=== PATIENT | female | born 1965 | race Caucasian/White ===

== ENCOUNTER 2018-06-18 07:26 | Day surgery (SDC) | payer OTHER ==
--- NOTE | 2018-06-13 16:22 | RAD REPORT ---
EXAM DESCRIPTION: RAD - Chest Pa And Lat (2 Views) - 06/13/2018 4:11 pm COMPARISON: None. TECHNIQUE: PA and lateral views of the chest were obtained. FINDINGS: The lungs are clear. Heart size is normal and central vasculature is within normal limit s. No pleural effusion or pneumothorax seen. No acute bony finding noted. No aortic abnormality. IMPRESSION: No acute cardiopulmonary process.
[2018-06-13 17:29] LABS: Protime INR 1.02
[2018-06-18] MEDS ORDERED: NA CHLORIDE 0.9% 500 ML ONE (07:57)
--- OUTSIDE RECORDS SUMMARY | 2018-06-18 09:03 | XMS REPORT | Clinical Summary ---
:1965 Author Organization [facility] Address [address] [place] [address] Care Team Providers Name Role Phone Paul Robledo MD Primary Care Provider Unavailable Allergies Active Allergy Reactions Severity Noted Date Comments Quetiapine 10/05/2016 Goes into liver failure Current Medications Prescription Sig. Disp. Refills Start Date End Date Status carisoprodol (SOMA) 350 TK 1 T PO BID FOR 0 08/31/2016 Active MG tablet MUSCLE SPASMS. HYDROcodone-acetaminophe TK 1 T PO QID FOR 0 08/31/2016 Active n (NORCO) 10-325 mg per CHRONIC PAIN. tablet rosuvastatin (CRESTOR) TK 1 T PO QHS FOR 3 08/17/2016 Active 10 MG tablet HYPERLIPIDEMIA traMADol (ULTRAM) 50 mg TK 1 T PO QD FOR 0 08/31/2016 Active tablet BREAKTHROUGH PAIN. zolpidem (AMBIEN) 10 mg TK 1 T PO QHS FOR 0 09/05/2016 Active tablet INSOMNIA. FLUoxetine (PROzac) 40 Take 80 mg by mouth Active MG capsule every morning. Takes 2 of the 40mg tabs tiZANidine (ZANAFLEX) 4 Take 4 mg by mouth Active MG tablet every 8 (eight) hours as needed for muscle spasms. ALPRAZolam (XANAX) 2 MG Take 2 mg by mouth Active tablet every morning. SUMAtriptan (IMITREX) 50 Take 100 mg by mouth Active MG tablet once as needed for migraine. May repeat in 2 hours if unresolved. Do not exceed 200 mg in 24 hours. butalbital-acetaminophen as needed. 2 09/29/2016 Active -caff (FIORICET, ESGIC) 50-325-40 mg per tablet LATUDA 80 mg tablet 80 mg nightly. 2 09/21/2016 Active topiramate (TOPAMAX) 100 Take 100 mg by mouth Active MG tablet 2 (two) times a day. coenzyme Q10 200 mg Take 200 mg by mouth Active capsule daily. hydrOXYzine (VISTARIL) Take 100 mg by mouth Active 100 MG capsule 3 (three) times a day as needed for itching. promethazine-DM TK 1 TEA PO Q 12 H 0 01/15/2017 Active (PROMETHAZINE-DM) PRN. MAY CAUSE 6.25-15 mg/5 mL syrup DROWSINESS. DO NOT TAKE WHILE DRIVING. atorvastatin (LIPITOR) 0 01/05/2017 Active 10 MG tablet fluticasone (FLONASE) 50 0 01/05/2017 Active mcg/actuation nasal spray LATUDA 60 mg tablet 0 01/08/2017 Active LATUDA 40 mg tablet 0 01/08/2017 Active methocarbamol (ROBAXIN) 3 01/04/2017 Active 500 MG tablet methylPREDNISolone 0 01/05/2017 Active (MEDROL DOSEPAK) 4 mg tablet SUMAtriptan (IMITREX) 2 01/04/2017 Active 100 MG tablet VENTOLIN HFA 90 0 03/27/2017 Active mcg/actuation inhaler REXULTI 1 mg tablet 1 05/09/2017 Active tablet BREO ELLIPTA 100-25 1 03/29/2017 Active mcg/dose blister with device powder for inhalation SPIRIVA RESPIMAT 2.5 1 05/09/2017 Active mcg/actuation mist Active Problems Problem Noted Date 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 05/14/2017 Tobacco abuse disorder 05/14/2017 Sore throat 12/21/2016 Cervical spondylosis with myelopathy and radiculopathy 11/01/2016 Cervical spondylosis with myelopathy 10/05/2016 Family History Medical History Relation Name Comments Diabetes Brother alireza Heart disease Brother alireza Leukemia Brother alireza Diabetes Brother zaira Diabetes Father Heart disease Father Kidney disease Father Diabetes Mother Heart disease Mother Thyroid disease Mother Diabetes Sister Thyroid disease Sister Relation Name Status Comments Brother alireza Brother zaira Alive Father Mother of heart attack Sister Alive Social History Tobacco Use Types Packs/Day Years Used Date Current Every Day Smoker Cigarettes 1 3 Smokeless Tobacco: Never Used Alcohol Use Drinks/Week oz/Week Comments No Sex Assigned at Date Recorded Not on file Last Filed Vital Signs Not on file Plan of Treatment Health Maintenance Due Date Last Done Comments CERVICAL CANCER SCREENING 1984 BREAST CANCER SCREENING 2013 COLON CANCER SCREENING 2013 SHINGRIX VACCINE (#1) 2013 INFLUENZA VACCINE 03/27/2018 Implants Implanted Type Area Weld Technician Device Expiration Model / Identifier Date Serial / Lot Matrix Hmstc Floseal 10ml W/ Humn F2 - [id number] Human N/A: N/A BRICENO [id number] / Implanted: Qty: 1 on 11/01/2016 Tissue BIOSCIENCE / Implants [id number] Kit Putty Bone 1.5ml Mastergraft - [id number] Human N/A: N/A MEDTRONIC [id number] / Implanted: Qty: 1 on 11/01/2016 Tissue SPINAL AND / Implants BIOLOGICS [id number] Cage [id number] Anatomic Ptc [id number] - [id number] IMPLANT Anterior: MEDTRONIC 03/27/2024 [id number] / Implanted: Qty: 1 on 11/01/2016 DEVICES Spine SOFAMOR DANEK / Cervical 82CE Cage [id number] Anatomic Ptc [id number] - [id number] IMPLANT Anterior: MEDTRONIC 04/11/2024 [id number] / Implanted: Qty: 1 on 11/01/2016 DEVICES Spine SOFAMOR DANEK / Cervical 07CG Screw Spinal Slf-Drl Karuna 4x15mm - [id number] Spinal N/A: N/A MEDTRONIC [id number] / Implanted: Qty: 3 on 11/01/2016 Implants SPINAL AND / BIOLOGICS Screw Spinal Slf-Drl Karuna 4x15mm - [id number] Spinal N/A: N/A MEDTRONIC [id number] / Implanted: Qty: 3 on 11/01/2016 Implants SPINAL AND / BIOLOGICS Plate Cerv 37.5mm [place] Elite - [id number] Spinal N/A: N/A MEDTRONIC [id number] / Implanted: Qty: 1 on 11/01/2016 Implants SPINAL AND / BIOLOGICS Results Not on fileafter 06/17/2017 Insurance Payer Benefit Plan / Group Subscriber ID Type Phone Address MEDICARE MEDICARE PART A AND B xxxxxxxxxx Medicare [place], [place] Home: [address] [phone] [address]
[2018-06-18] MEDS ORDERED: HEPA 1000U/500MLS 1,000 UNIT/500 ML BAG IV ONE (09:06)
[2018-06-18] MEDS ORDERED: LIDOCAINE 1% MPF 30 ML VIAL ONE (09:06)
[2018-06-18] MEDS ORDERED: ATROPINE SULF 1 MG/10 ML SYR IV ONE (09:18)
[2018-06-18] MEDS ORDERED: MIDAZOLAM HCL 2 MG/2 ML INJ ONE ×2 (09:18→09:42)
[2018-06-18] MEDS ORDERED: NA CHLORIDE 0.9% 0 ML ONE (09:18)
[2018-06-18 11:42] VITALS: O2SAT 93
[2018-06-18 12:08] VITALS: BP 93/43; TEMP 98.7
--- NOTE | 2018-06-18 20:50 | OP ---
Surgeon: Anjel Baez MD Director Of Extension Work: Citlali Perez. Admitted to my service as an outpatient for a heart catheterization. Indication For The Procedure: Unstable angina. Procedure: Selective coronary arteriogram, left ventriculogram, and selective coronary arteriogram. History Of Present Illness: Ms. Colin is 53, has a history of dyslipidemia, family history of heart d isease, tobacco abuse, hypertension, classic symptoms for unstable angina including substernal chest pain and angina type symptoms including syncope, diaphoresis, dyspnea on exertion. Procedure In Detail: Brought to the label sewer today as an outpatient, had a 4 mg of Versed for IV sed ation. A 6-Vincentian sheath introduced in the right common femoral artery. Angio-Seal was used to clos e the case. Marlee catheter 6-Vincentian left, right and a pigtail were used to do the coronary arterio gram and left ventriculogram respectively. She was found to have normal coronaries, normal LV gram, normal end-diastolic pressure, normal ejection fraction. There were no complications. Blood Loss: 5 cc. Final Diagnosis: Normal coronaries. Total Conscious Sedation: 30 minutes. She will go home today in 2 hours, and she will see me in the office in 2 weeks. LORENZO/INES Voice ID: [id number] Report ID: [id number]
== END 2018-06-18 12:10 | disposition home health service (06) ==
LOC: CCL 07:26
DX: I20.0 Unstable angina (principal); R06.02 Shortness of breath; E78.5 Hyperlipidemia, unspecified; F17.210 Nicotine dependence, cigarettes, uncomplicated; E78.6 Lipoprotein deficiency; Z88.8 Allergy status to other drugs, medicaments and biological substances; Z82.49 Family history of ischemic heart disease and other diseases of the circulatory system
CPT/HCPCS: 36415; 71046; 85610; 85730; 93458; C1760; C1893; J2250 ×2; 36222; 75630; J0583

== ENCOUNTER 2019-02-21 12:33 | Emergency (ER) | payer OTHER ==
--- OUTSIDE RECORDS SUMMARY | 2019-02-21 12:36 | XMS REPORT | Clinical Summary ---
:1965 Author Organization [facility] Address [address] [place] [address] Care Team Providers Name Role Phone Paul Robledo MD Primary Care Provider Unavailable Allergies Active Allergy Reactions Severity Noted Date Comments Quetiapine 10/05/2016 Goes into liver failure Medications Medication Sig Dispensed Refills Start Date End Date Status carisoprodol (SOMA) 350 TK 1 T PO BID FOR 0 08/31/2016 Active MG tablet MUSCLE SPASMS. HYDROcodone-acetaminoph TK 1 T PO QID FOR 0 08/31/2016 Active en (NORCO) 10-325 mg CHRONIC PAIN. per tablet rosuvastatin (CRESTOR) TK 1 T PO QHS FOR 3 08/17/2016 Active 10 MG tablet HYPERLIPIDEMIA traMADol (ULTRAM) 50 mg TK 1 T PO QD FOR 0 08/31/2016 Active tablet BREAKTHROUGH PAIN. zolpidem (AMBIEN) 10 mg TK 1 T PO QHS FOR 0 09/05/2016 Active tablet INSOMNIA. FLUoxetine (PROzac) 40 Take 80 mg by mouth 0 Active MG capsule every morning. Takes 2 of the 40mg tabs tiZANidine (ZANAFLEX) 4 Take 4 mg by mouth 0 Active MG tablet every 8 (eight) hours as needed for muscle spasms. ALPRAZolam (XANAX) 2 MG Take 2 mg by mouth 0 Active tablet every morning. SUMAtriptan (IMITREX) Take 100 mg by 0 Active 50 MG tablet mouth once as needed for migraine. May repeat in 2 hours if unresolved. Do not exceed 200 mg in 24 hours. butalbital-acetaminophe as needed. 2 09/29/2016 Active n-caff (FIORICET, ESGIC) 50-325-40 mg per tablet LATUDA 80 mg tablet 80 mg nightly. 2 09/21/2016 Active topiramate (TOPAMAX) Take 100 mg by 0 Active 100 MG tablet mouth 2 (two) times a day. coenzyme Q10 200 mg Take 200 mg by 0 Active capsule mouth daily. hydrOXYzine (VISTARIL) Take 100 mg by 0 Active 100 MG capsule mouth 3 (three) times a day as needed for itching. promethazine-DM TK 1 TEA PO Q 12 H 0 01/15/2017 Active (PROMETHAZINE-DM) PRN. MAY CAUSE 6.25-15 mg/5 mL syrup DROWSINESS. DO NOT TAKE WHILE DRIVING. atorvastatin (LIPITOR) 0 01/05/2017 Active 10 MG tablet fluticasone (FLONASE) 0 01/05/2017 Active 50 mcg/actuation nasal spray LATUDA 60 mg tablet [...] Assigned at Date Recorded Not on file Job Start Date Occupation Industry Not on file Not on file Not on file Travel History Travel Start Travel End No recent travel history available. Last Filed Vital Signs Not on file Plan of Treatment Health Maintenance Due Date Last Done Comments BREAST CANCER SCREENING 2013 COLONOSCOPY SCREENING 2013 SHINGLES VACCINES (#1) 2013 INFLUENZA VACCINE 03/27/2019 Implants Implanted Type Area Roustabout Crew Device Shelf Model / Identifier Expiration Serial / Date Lot Matrix Hmstc Floseal 10ml W/ Humn F2 - [id number] Human N/A: N/A BRICENO [id number] / Implanted: Qty: 1 on 11/01/2016 Tissue BIOSCIENCE / Implants [id number] Kit Putty Bone 1.5ml Mastergraft - [id number] Human N/A: N/A MEDTRONIC [id number] / Implanted: Qty: 1 on 11/01/2016 Tissue SPINAL AND / Implants BIOLOGICS [id number] Cage [id number] Anatomic Ptc [id number] - [id number] IMPLANT Anterior: MEDTRONIC 03/27/2024 [id number] / Implanted: Qty: 1 on 11/01/2016 DEVICES Spine SOFAMOR DANEK / Cervical 82CE Cage [id number] Anatomic Ptc [id number] - [id number] IMPLANT Anterior: MEDTRONIC 04/11/2024 [id number] / Implanted: Qty: 1 on 11/01/2016 DEVICES Spine SOFAMOR DANEK / Cervical 07CG Screw Spinal Slf-Drl Karuna 4x15mm - [id number] Spinal N/A: N/A MEDTRONIC [id number] / Implanted: Qty: 3 on 11/01/2016 Implants SPINAL AND / BIOLOGICS Screw Spinal Slf-Drl Karuna 4x15mm - [id number] Spinal N/A: N/A MEDTRONIC [id number] / Implanted: Qty: 3 on 11/01/2016 Implants SPINAL AND / BIOLOGICS Plate Cerv 37.5mm [place] Elite - [id number] Spinal N/A: N/A MEDTRONIC [id number] / Implanted: Qty: 1 on 11/01/2016 Implants SPINAL AND / BIOLOGICS Results Not on fileafter 02/20/2018 Insurance Payer Benefit Plan / Subscriber ID Effective Dates Phone Address Type Group MEDICARE MEDICARE PART A xxxxxxxxxx 2013-Present [place], [place] Medicare [place] B (Home) [place] [address] Advance Directives Patient has advance care planning documents, and code status on file. For more information, please contact:Phani Graibay[address] [place] [address] Code Status Date Activated Date Inactivated Comments Full Code 11/01/2016 8:48 PM 11/02/2016 1:21 PM Code Status decision reached by: Patient
--- OUTSIDE RECORDS SUMMARY | 2019-02-21 12:36 | XMS REPORT ---
:1965 [facility] Address [address] [place] [address] Dr. Hebert [address] [place] [address] Care Team Providers Name Role Phone Unavailable Unavailable Unavailable Problems This patient has no known problems. Allergies, Adverse Reactions, Alerts This patient has no known allergies or adverse reactions. Medications This patient has no known medications.
--- NOTE | 2019-02-21 13:17 | RAD REPORT ---
EXAM DESCRIPTION: Wolf Single View02/21/2019 1:12 pm CLINICAL HISTORY: Chest pain COMPARISON: May 2018 FINDINGS: An area of scarring or subsegmental atelectasis is present within the left lung base Right lung appears clear Heart is normal size
--- NOTE | 2019-02-21 13:22 | EKG ---
Test Date: 2019-02-21 Test Time: 12:50:43 Security Incident Handler: JANELLE MEASUREMENT RESULTS: Intervals: Rate: 79 CT: 138 QRSD: 68 QT: 386 QTc: 442 [place]: P: 38 CT: 138 QRS: 72 T: 208 INTERPRETIVE STATEMENTS: Normal sinus rhythm ST & T wave abnormality, consider anterolateral ischemia Abnormal ECG Compared to ECG 08/30/2015 16:12:58 Possible ischemia now present Sinus bradycardia no longer present ST (T wave) deviation still present Electronically Signed On 02-21-19 13:22:14 CDT by Anjel Baez
[2019-02-21 13:41] LABS: Absolute Lymphocytes (CBC) 2.2 K/uL (0.7-4.9); Basophils % 0.5 % (0-1.3); Eosinophils % 0.3 % (0-4.4); Hematocrit 47.3 % (36.0-45.0); Lymphocytes % 21.5 % (15.3-44.8); MPV 9.6 fL (7.6-11.3); Monocytes % 6.7 % (3.3-12.3); RBC Red Blood Cell Count 4.98 M/uL (3.86-4.86)
[2019-02-21 13:47] LABS: Protime INR 1.07
[2019-02-21 14:08] LABS: ALT/SGPT 49 U/L (12-78); AST/SGOT 16 U/L (15-37); Albumin 4.1 g/dL (3.4-5.0); Alkaline Phosphatase 152 U/L (45-117); BUN Blood Urea Nitrogen 8 mg/dL (7-18); Bicarbonate 21 mmol/L (21-32); Bilirubin Direct 0.2 mg/dL (0-0.2); Bilirubin Total 0.5 mg/dL (0.2-1.0); Glucose Level 103 mg/dL (74-106); Magnesium 2.4 mg/dL (1.8-2.4); NT PRO-BNP 19 pg/mL (<125); Potassium 3.7 mmol/L (3.5-5.1); Protein, Total 8.5 g/dL (6.4-8.2); Sodium Level 138 mmol/L (136-145); Troponin (Emerg Dept Use Only) < 0.02 ng/mL (0.0-0.045)
[2019-02-21] MEDS ORDERED: FENTANYL CITR 100 MCG/2 ML ONE (15:27)
--- NOTE | 2019-02-21 17:14 | ER ---
Nurse's Notes [facility] Name: Janine Colin Age: 53 yrs Sex: Female : 1965 Arrival Date: 02/21/2019 Time: 12:35 Bed 4 Private MD: Diagnosis: Chest pain, unspecified Presentation: 02/21 12:49 Presenting complaint: Patient states: midsternal chest pain since 0300 today, described iw as constant, crushing, hurts to breathe. Transition of care: patient was not received from another setting of care. Onset of symptoms was February 21, 2019. Risk Assessment: Do you want to hurt yourself or someone else? Patient reports no desire to harm self or others. Initial Sepsis Screen: Does the patient meet any 2 criteria? No. Patient's initial sepsis screen is negative. Does the patient have a suspected source of infection? No. Patient's initial sepsis screen is negative. Care prior to arrival: None. 12:49 Method Of Arrival: Wheelchair iw 12:49 Acuity: KRYSTYNA 2 iw Triage Assessment: 12:50 General: Appears in no apparent distress. uncomfortable, Behavior is calm, cooperative, hj appropriate for age. Pain: Complains of pain in chest. Cardiovascular: Reports chest pain. 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 - Ebola Screening: : Patient negative for fever greater than or equal to 101.5 degrees Fahrenheit, and additional compatible Ebola Virus Disease symptoms Patient denies exposure to infectious person Patient denies travel to an Ebola-affected area in the 21 days before illness onset No symptoms or risks identified at this time. - Social history:: Smoking status: Patient uses tobacco products, Patient/guardian denies using alcohol. Screenin:50 Abuse screen: Denies threats or abuse. Denies injuries from another. Nutritional hj screening: No deficits noted. Tuberculosis screening: No symptoms or risk factors identified. Fall Risk None identified. Assessment: 12:50 Pain: Pain radiates to left arm Pain began suddenly. hj 12:50 General: Appears in no apparent distress. uncomfortable, Behavior is cooperative, hj appropriate for age, anxious. Neuro: Level of Consciousness is awake, alert, obeys commands, Oriented to person, place, time, situation, Appropriate for age. Cardiovascular: Capillary refill < 3 seconds Patient's skin is warm and dry. Cardiovascular: Reports chest pain. Respiratory: Airway is patent Respiratory effort is even, unlabored, Respiratory pattern is regular, symmetrical. GI: No signs and/or symptoms were reported involving the gastrointestinal system. : No signs and/or symptoms were reported regarding the genitourinary system. EENT: No signs and/or symptoms were reported regarding the EENT system. Derm: No signs and/or symptoms reported regarding the dermatologic system. Musculoskeletal: No signs and/or symptoms reported regarding the musculoskeletal system. 13:30 Reassessment: Patient and/or family updated on plan of care and expected duration. Pain hj level reassessed. Patient is alert, oriented x 3, equal unlabored respirations, skin warm/dry/pink. awaiting results and POC:. 14:30 Reassessment: Patient and/or family updated on plan of care and expected duration. Pain hj level reassessed. Patient is alert, oriented x 3, equal unlabored respirations, skin warm/dry/pink. 15:30 Reassessment: Patient and/or family updated on plan of care and expected duration. Pain hj level reassessed. Patient is alert, oriented x 3, equal unlabored respirations, skin warm/dry/pink. Patient states feeling better. Patient states symptoms have improved. 16:30 Reassessment: Patient and/or family updated on plan of care and expected duration. Pain hj level reassessed. Patient is alert, oriented x 3, equal unlabored respirations, skin warm/dry/pink. Patient states symptoms have improved. 17:11 Reassessment: Patient and/or family updated on plan of care and expected duration. Pain hj level reassessed. Patient is alert, oriented x 3, equal unlabored respirations, skin warm/dry/pink. for D/C; Patient states feeling better. Vital Signs: 12:51 BP 130 / 103; Pulse 79; Resp 16; Pulse Ox 98% on R/A; Pain 10/10; iw 13:30 BP 128 / 93; Pulse 75; Resp 18; Pulse Ox 100% on R/A; hj 14:40 BP 122 / 92; Pulse 72; Resp 18; Pulse Ox 95% on R/A; hj 15:32 BP 116 / 86; Pulse 67; Resp 18; Temp 98.4(O); Pulse Ox 97% on R/A; hj 16:25 BP 117 / 87; Pulse 65; Resp 18; Pulse Ox 100% on R/A; hj 17:11 BP 118 / 85; Pulse 69; Resp 18; Pulse Ox 99% on R/A; hj ED Course: 12:35 Patient arrived in ED. as 12:43 Josiah Green, JOY is Primary Nurse. hj 12:48 John England MD is Attending Physician. gs 12:50 Triage completed. iw 12:50 Patient maintains SpO2 saturation greater than 95% on room air. hj 12:50 Patient has correct armband on for positive identification. Placed in gown. Bed in low hj position. Call light in reach. Side rails up X 1. Adult w/ patient. site monitor on. Pulse ox on. NIBP on. 13:08 X-ray completed. Portable x-ray completed in exam room. Patient tolerated procedure ml well. 13:12 XRAY Chest (1 view) In Process Unspecified. EDMS 13:29 Initial lab(s) drawn, by crime laboratory analyst, sent to lab. Inserted saline lock: 18 gauge in right hj upper arm, using aseptic technique. Blood collected. 13:30 Arm band placed on right wrist. hj 17:13 Woody Matamoros MD is Referral Physician. gs 17:28 No provider procedures requiring assistance completed. IV discontinued, intact, hj bleeding controlled, No redness/swelling at site. Pressure dressing applied. Administered Medications: 15:08 Drug: fentaNYL (PF) 50 mcg Route: IVP; Site: right upper arm; hj 15:15 Follow up: Response: No adverse reaction; Pain is decreased hj 17:14 Drug: [place] 10 mg-325 mg 1 tabs Route: PO; hj 17:28 Follow up: Response: No adverse reaction; Pain is decreased Outcome: 17:13 Discharge ordered by . gs 17:29 Discharged to home ambulatory, with family. hj 17:29 Condition: stable 17:29 Discharge instructions given to patient, family, Instructed on discharge instructions, follow up and referral plans. medication usage, Demonstrated understanding of instructions, follow-up care, medications, Prescriptions given X 1. 17:30 Patient left the ED. hj Signatures: Dispatcher [employer] Arpita Moreno Irene, RN RN iw Lopez, Melissa ml Joaquin, Henry, RN RN hj Starr, Gregory, MD MD gs Corrections: (The following items were deleted from the chart) 15:34 15:32 BP 116 / 86; Pulse 67bpm; Resp 18bpm; Pulse Ox 97% RA; holley babb
--- NOTE | 2019-02-21 17:14 | EDPHYS ---
Physician Documentation [facility] Name: Janine Colin Age: 53 yrs Sex: Female : 1965 Arrival Date: 02/21/2019 Time: 12:35 Bed 4 Private MD: ED Physician John England HPI: 02/21 17:18 This 53 yrs old Female presents to ER via Wheelchair with complaints of Chest gs Pain. 17:18 The patient or guardian reports chest pain that is located primarily in the anterior gs chest wall. Onset: this morning, at 03:00. The pain radiates to back. Associated signs and symptoms: Pertinent negatives: diaphoresis, shortness of breath, vomiting. The chest pain is described as sharp. Modifying factors: the symptoms are aggravated by deep breath, movement, twisting torso. Severity of pain: At its worst the pain was moderate in the emergency department the pain is unchanged. The patient has experienced similar episodes in the past, a few times. 17:26 Duration: The patient or guardian reports a single episode, that is still ongoing. gs RECEIPT AND REPORT CLERK: 17:29 LMP N/A - Irregular menses hj Historical: - PSHx: 12:50 Exploratory lap; ; rotator cuff; D \T\ C; Hysterectomy; iw - Immunization history:: Adult Immunizations up to date. - Ebola Screening: : Patient negative for fever greater than or equal to 101.5 degrees Fahrenheit, and additional compatible Ebola Virus Disease symptoms Patient denies exposure to infectious person Patient denies travel to an Ebola-affected area in the 21 days before illness onset No symptoms or risks identified at this time. - Social history:: Smoking status: Patient uses tobacco products, Patient/guardian denies using alcohol. ROS: 17:18 All other systems are negative. gs Exam: 17:18 Head/Face: Normocephalic, atraumatic. Eyes: Pupils equal round and reactive to light, gs extra-ocular motions intact. Lids and lashes normal. Conjunctiva and sclera are non-icteric and not injected. Cornea within normal limits. Periorbital areas with no swelling, redness, or edema. ENT: Nares patent. No nasal discharge, no septal abnormalities noted. Tympanic membranes are normal and external auditory canals are clear. Oropharynx with no redness, swelling, or masses, exudates, or evidence of obstruction, uvula midline. Mucous membranes moist. Neck: Trachea midline, no thyromegaly or masses palpated, and no cervical lymphadenopathy. Supple, full range of motion without nuchal rigidity, or vertebral point tenderness. No Meningismus. Chest/axilla: Normal chest wall appearance and motion. Nontender with no deformity. No lesions are appreciated. Cardiovascular: Regular rate and rhythm with a normal S1 and S2. No gallops, murmurs, or rubs. Normal PMI, no JVD. No pulse deficits. Respiratory: Lungs have equal breath sounds bilaterally, clear to auscultation and percussion. No rales, rhonchi or wheezes noted. No increased work of breathing, no retractions or nasal flaring. Abdomen/GI: Soft, non-tender, with normal bowel sounds. No distension or tympany. No guarding or rebound. No evidence of tenderness throughout. Back: No spinal tenderness. No costovertebral tenderness. Full range of motion. Skin: Warm, dry with normal turgor. Normal color with no rashes, no lesions, and no evidence of cellulitis. MS/ Extremity: Pulses equal, no cyanosis. Neurovascular intact. Full, normal range of motion. Neuro: Awake and alert, GCS 15, oriented to person, place, time, and situation. Cranial nerves II-XII grossly intact. Motor strength 5/5 in all extremities. Sensory grossly intact. Cerebellar exam normal. Normal gait. 17:18 Constitutional: The patient appears alert, awake. 17:18 ECG was reviewed by the Attending Physician. Vital Signs: 12:51 BP 130 / 103; Pulse 79; Resp 16; Pulse Ox 98% on R/A; Pain 10/10; iw 13:30 BP 128 / 93; Pulse 75; Resp 18; Pulse Ox 100% on R/A; hj 14:40 BP 122 / 92; Pulse 72; Resp 18; Pulse Ox 95% on R/A; hj 15:32 BP 116 / 86; Pulse 67; Resp 18; Temp 98.4(O); Pulse Ox 97% on R/A; hj 16:25 BP 117 / 87; Pulse 65; Resp 18; Pulse Ox 100% on R/A; hj 17:11 BP 118 / 85; Pulse 69; Resp 18; Pulse Ox 99% on R/A; hj MDM: 12:54 Patient medically screened. 17:18 Differential diagnosis: coronary artery disease chest wall pain, pulmonary embolus. HEART Score: History: Slightly Suspicious (0), ECG: Non specific repolarization disturbance / LBTB / PM (1), Age: > 45 and < 65 years (1), Risk Factors: 1 or 2 risk factors (1), [Active Smoker] Troponin: < or = 1 x Normal Limit (0). Data reviewed: vital signs, nurses notes, lab test result(s), EKG, radiologic studies. Counseling: I had a detailed discussion with the patient and/or guardian regarding: the historical points, exam findings, and any diagnostic results supporting the discharge/admit diagnosis, the need for outpatient follow up. Response to treatment: the patient's symptoms have markedly improved after treatment, the patient's symptoms have resolved after treatment, the patient's pain is gone, the patient's condition has returned to base line. 17:21 ED course: pt only has pain with movement. 02/21 12:48 Order name: Basic Metabolic Panel 02/21 12:48 Order name: CBC with Diff 02/21 12:48 Order name: LFT's; Complete Time: 15:07 02/21 12:48 Order name: Magnesium; Complete Time: 15:07 02/21 12:48 Order name: NT PRO-BNP; Complete Time: 15:07 02/21 12:48 Order name: PT-INR; Complete Time: 15:07 02/21 12:48 Order name: Troponin (emerg Dept Use Only); Complete Time: 15:07 02/21 12:48 Order name: XRAY Chest (1 view); Complete Time: 13:19 02/21 12:50 Order name: Basic Metabolic Panel; Complete Time: 15:07 [facility] 02/21 12:50 Order name: CBC with Automated Diff; Complete Time: 15:07 [facility] 02/21 13:00 Order name: D-Dimer; Complete Time: 15:07 02/21 15:10 Order name: Troponin (emerg Dept Use Only); Complete Time: 17:10 02/21 12:48 Order name: EKG; Complete Time: 12:51 02/21 12:48 Order name: Cardiac monitoring; Complete Time: 13:03 02/21 12:48 Order name: EKG - Nurse/Tech; Complete Time: 13:03 02/21 12:48 Order name: IV Saline Lock; Complete Time: : 02/21 12:48 Order name: Labs collected and sent; Complete Time: 13: 02/21 12:48 Order name: O2 Per Protocol; Complete Time: 13: 02/21 12:48 Order name: O2 Sat Monitoring; Complete Time: 13: EC:18 Rate is 79 beats/min. Rhythm is regular. WV interval is normal. QRS interval is normal. QT interval is normal. Clinical impression: NSR w/ Non-specific ST/T Changes. Interpreted by me. Administered Medications: 15:08 Drug: fentaNYL (PF) 50 mcg Route: IVP; Site: right upper arm; 15:15 Follow up: Response: No adverse reaction; Pain is decreased 17:14 Drug: [place] 10 mg-325 mg 1 tabs Route: PO; 17:28 Follow up: Response: No adverse reaction; Pain is decreased Disposition: 02/21/19 17:13 Discharged to Home. Impression: Chest pain, unspecified. - Condition is Stable. - Discharge Instructions: Nonspecific Chest Pain. - Prescriptions for Tylenol- Codeine #4 300-60 mg Oral Tablet - take 1 tablet by ORAL route every 6 hours As needed; 10 tablet. - Medication Reconciliation Form, Thank You Letter, Antibiotic Education, Prescription Opioid Use form. - Follow up: Woody Matamoros MD; When: 2 - 3 days; Reason: Re-evaluation by your physician. Signatures: [facility] Shweta Villalpando RN RN Josiah Green RN RN John England MD MD Corrections: (The following items were deleted from the chart) 17:26 17:18 Duration: The patient or guardian reports multiple episodes, that are gs intermittent, that wax and wane, with no pattern, gs 17:30 17:13 02/21/2019 17:13 Discharged to Home. Impression: Chest pain, unspecified. hj Condition is Stable. Forms are Medication Reconciliation Form, Thank You Letter, Antibiotic Education, Prescription Opioid Use. Follow up: Woody Matamoros; When: 2 - 3 days; Reason: Re-evaluation by your physician. gs
[2019-02-21] MEDS ORDERED: HYDROCODONE/APAP 10/325 TAB ONE (17:33)
[2019-02-21 20:12] VITALS: TEMP 98.4
[2019-02-21 20:14] VITALS: BP 118/85; O2SAT 99
== END 2019-02-21 17:30 | disposition home or self-care (01) ==
LOC: ER 12:33
DX: R07.9 Chest pain, unspecified (principal); Z72.0 Tobacco use
CPT/HCPCS: 93005; 85025; 80048; 36415; 83735; 85610; 85379; 80076; 84484 ×2; 83880; 71045; 96374; 99285; J3010

== ENCOUNTER 2019-05-06 16:20 | Emergency (ER) | payer OTHER ==
--- OUTSIDE RECORDS SUMMARY | 2019-05-06 16:23 | XMS REPORT ---
:1965 Author Organization [facility] Address [address] [place] [address] Dr. Hebert [address] [place] [id number] Care Team Providers Name Role Phone Unavailable Unavailable Unavailable Problems This patient has no known problems. Allergies, Adverse Reactions, Alerts This patient has no known allergies or adverse reactions. Medications This patient has no known medications.
--- OUTSIDE RECORDS SUMMARY | 2019-05-06 16:23 | XMS REPORT | Clinical Summary ---
:1965 Author Organization [facility] Address [address] [place] [address] Care Team Providers Name Role Phone Paul Robledo MD Primary Care Provider Allergies Active Allergy Reactions Severity Noted Date [...] CANCER SCREENING 1984 BREAST CANCER SCREENING 2013 COLONOSCOPY SCREENING 2013 SHINGLES VACCINES (#1) 2013 INFLUENZA VACCINE 03/27/2019 Implants Implanted Type Area Automatic Lathe Setter Device Shelf Model / Identifier Expiration Serial / Date Lot Matrix Hmstc Floseal 10ml W/ Humn F2 - [id number] Human N/A: N/A BRICENO [id number] / Implanted: Qty: 1 on 11/01/2016 at [facility] Tissue BIOSCIENCE / Implants [id number] Kit Putty Bone 1.5ml Mastergraft - [id number] Human N/A: N/A MEDTRONIC [id number] / Implanted: Qty: 1 on 11/01/2016 at [facility] Tissue SPINAL AND / Implants BIOLOGICS [id number] Cage [id number] Anatomic Ptc [id number] - [id number] IMPLANT Anterior: MEDTRONIC 03/27/2024 [id number] / Implanted: Qty: 1 on 11/01/2016 at [facility] DEVICES Spine SOFAMOR DANEK / Cervical 82CE Cage [id number] Anatomic Ptc [id number] - [id number] IPM IMPLANT Anterior: MEDTRONIC 04/11/2024 [id number] / Implanted: Qty: 1 on 11/01/2016 at [facility] DEVICES Spine SOFAMOR DANEK / Cervical 07CG Screw Spinal Slf-Drl Karuna 4x15mm - [id number] Spinal N/A: N/A [employer]TR[employer]IC [id number] / Implanted: Qty: 3 on 11/01/2016 at [facility] Implants SPINAL AND / BIOLOGICS Screw Spinal Slf-Drl Karuna 4x15mm - [id number] Spinal N/A: N/A MEDTRONIC [id number] / Implanted: Qty: 3 on 11/01/2016 at [facility] Implants SPINAL AND / BIOLOGICS Plate Cerv 37.5mm [place] Elite - [id number] Spinal N/A: N/A [employer]IC [id number] / Implanted: Qty: 1 on 11/01/2016 at [facility] Implants SPINAL AND / BIOLOGICS Results Not on fileafter 05/05/2018 Insurance Payer Benefit Plan / Subscriber ID Effective Dates Phone Address Type Group MEDICARE MEDICARE PART A xxxxxxxxxx 2013-Present [place], [place] Medicare [place] B Advance Directives For more information, please contact: [phone] Type Date Recorded Patient Lacing Cutter Explanation Advance Directives, 12/21/2016 11:14 AM Living Will and Medical Power of Eligibility Consultant Advance Directives, 11/06/2016 11:00 AM Living Will and Medical Power of Eligibility Consultant Advance Directives, 11/06/2016 11:00 AM Living Will and Medical Power of Eligibility Consultant Code Status Date Activated Date Inactivated Comments Full Code 11/01/2016 8:48 PM 11/02/2016 1:21 PM Code Status decision reached by: Patient
--- NOTE | 2019-05-06 17:35 | RAD REPORT ---
EXAM DESCRIPTION: USExtrem Venous W Compress Bil05/06/2019 5:19 pm CLINICAL HISTORY: Bilateral leg swelling COMPARISON: May 02, 2019 FINDINGS: The common femoral, superficial femoral, popliteal and posterior tibial veins bilaterally are compressible and demonstrate augmentation. Doppler demonstrates good flow. IMPRESSION: No evidence of deep venous thrombosis involving either lower extremity.
--- NOTE | 2019-05-06 17:46 | RAD REPORT ---
EXAM DESCRIPTION: Wolf Single View05/06/2019 5:05 pm CLINICAL HISTORY: Chest pain COMPARISON: January 2019 FINDINGS: An area of scarring or subsegmental atelectasis is present within the left lung base Right lung appears clear Heart is normal size
[2019-05-06] MEDS ORDERED: MORPHINE 4 MG/ML SYR ONE (17:54)
[2019-05-06] MEDS ORDERED: ONDANSETRON 4 MG/2 ML VIAL ONE (17:54)
[2019-05-06] MEDS ORDERED: ONDANSETRON 4 MG (ODT) TAB ONE (18:22)
--- NOTE | 2019-05-06 18:29 | EKG ---
Test Date: 2019-05-06 Test Time: 16:55:59 Laminating Machine Offbearer: GERMAIN MEASUREMENT RESULTS: Intervals: Rate: 76 IN: 140 QRSD: 72 QT: 398 QTc: 447 Mobile: P: 58 IN: 140 QRS: 74 T: -34 INTERPRETIVE STATEMENTS: Normal sinus rhythm ST & T wave abnormality, consider anterior ischemia Abnormal ECG Compared to ECG 02/21/2019 12:50:43 No significant changes Electronically Signed On 05-06-19 18:29:10 CDT by Anjel Baez
[2019-05-06 18:34] LABS: Absolute Lymphocytes (CBC) 2.7 K/uL (0.7-4.9); Basophils % 0.6 % (0-1.3); Hematocrit 41.2 % (36.0-45.0); Lymphocytes % 28.9 % (15.3-44.8); MPV 9.2 fL (7.6-11.3); RBC Red Blood Cell Count 4.27 M/uL (3.86-4.86)
[2019-05-06 18:48] LABS: Albumin 3.9 g/dL (3.4-5.0); Bilirubin Direct 0.1 mg/dL (0-0.2); Bilirubin Total 0.2 mg/dL (0.2-1.0); Potassium 3.8 mmol/L (3.5-5.1); Protein, Total 7.1 g/dL (6.4-8.2)
--- NOTE | 2019-05-06 19:36 | ER ---
Nurse's Notes [facility] Name: Janine Colin Age: 54 yrs Sex: Female : 1965 Arrival Date: 05/06/2019 Time: 16:22 Bed 25 Private MD: out of town, doctor Diagnosis: Edema, unspecified Presentation: 05/06 16:28 Presenting complaint: Patient states: I have been having a problem with swelling in my la1 right foot for the last 2 weeks, saw my PCP, he did an US but it was normal, the swelling just keeps getting worse. Transition of care: patient was not received from another setting of care. Onset of symptoms was May 06, 2019. Risk Assessment: Do you want to hurt yourself or someone else? Patient reports no desire to harm self or others. Initial Sepsis Screen: Does the patient meet any 2 criteria? No. Patient's initial sepsis screen is negative. Does the patient have a suspected source of infection? No. Patient's initial sepsis screen is negative. Care prior to arrival: None. 16:28 Method Of Arrival: Ambulatory la1 16:28 Acuity: KRYSTYNA 3 la1 Historical: - Allergies: 16:29 Seroquel; la1 - PMHx: 16:29 Depression; Anxiety; Fibromyalgia; High Cholesterol; la1 - Immunization history:: Adult Immunizations up to date. - Social history:: Smoking status: Patient uses tobacco products, smokes one-half pack cigarettes per day. - Ebola Screening: : No symptoms or risks identified at this time. Screenin:30 Abuse screen: Denies threats or abuse. Denies injuries from another. Nutritional ca1 screening: No deficits noted. Tuberculosis screening: No symptoms or risk factors identified. Fall Risk None identified. Assessment: 17:30 General: Appears in no apparent distress. comfortable, Behavior is calm, cooperative, ca1 appropriate for age. Pain: Complains of pain in right foot Pain currently is 8 out of 10 on a pain scale. Neuro: Level of Consciousness is awake, alert, obeys commands, Oriented to person, place, time, situation. Cardiovascular: Heart tones S1 S2 present Capillary refill < 3 seconds Patient's skin is warm and dry. Respiratory: Airway is patent Respiratory effort is even, unlabored, Respiratory pattern is regular, symmetrical, Breath sounds are clear bilaterally. GI: Abdomen is round non-distended, Bowel sounds present X 4 quads. Abd is soft and non tender X 4 quads. : No deficits noted. No signs and/or symptoms were reported regarding the genitourinary system. EENT: No deficits noted. No signs and/or symptoms were reported regarding the EENT system. Derm: Skin is intact, is healthy with good turgor, Skin is pink, warm \T\ dry. Musculoskeletal: Circulation, motion, and sensation intact. Capillary refill < 3 seconds, Range of motion: intact in all extremities, Swelling present in right foot. 18:38 Reassessment: Patient appears in no apparent distress at this time. Patient and/or ca1 family updated on plan of care and expected duration. Pain level reassessed. Patient is alert, oriented x 3, equal unlabored respirations, skin warm/dry/pink. Unable to start IV on pt. Blood draw by lab personnel. Notified provider. Meds changed from IV to IM and PO. 19:12 Reassessment: Patient appears in no apparent distress at this time. Patient and/or ca1 family updated on plan of care and expected duration. Pain level reassessed. Patient is alert, oriented x 3, equal unlabored respirations, skin warm/dry/pink. Vital Signs: 16:29 BP 107 / 74; Pulse 83; Resp 16; Temp 98.4; Pulse Ox 98% on R/A; Weight 72.57 kg; Height la1 5 ft. 2 in. (157.48 cm); 17:30 BP 95 / 53; Pulse 67; Resp 17 S; Pulse Ox 95% on R/A; ca1 19:12 BP 121 / 78; Pulse 70; Resp 16 S; Pulse Ox 94% on R/A; ca1 16:29 Body Mass Index 29.26 (72.57 kg, 157.48 cm) la1 ED Course: 16:22 Patient arrived in ED. mr 16:23 out of town, doctor is Private Physician. mr 16:29 Triage completed. la1 16:29 Arm band placed on left wrist. la1 16:30 Dylan Juárez NP is PHCP. pm1 16:30 Reji Medina MD is Attending Physician. pm1 16:57 EKG done, by surface mount technology operator. reviewed by Dylan Juárez NP. sm3 17:09 Chest Single View XRAY In Process Unspecified. EDMS 17:24 Extrem Venous W Compression Ashish US In Process Unspecified. EDMS 17:30 Patient has correct armband on for positive identification. Placed in gown. Bed in low ca1 position. Call light in reach. Side rails up X 1. Pulse ox on. NIBP on. Warm blanket given. 17:30 No provider procedures requiring assistance completed. Missed attempt(s): 24 gauge in ca1 left antecubital area. Bleeding controlled, band aid applied, catheter tip intact. 17:38 Keren Patel, JOY is Primary Nurse. ca1 17:40 Missed attempt(s): 24 gauge in right antecubital area. Bleeding controlled, band aid ca1 applied, catheter tip intact. 19:29 Patient did not have IV access during this emergency room visit. ca1 Administered Medications: 18:35 Not Given (Will give IM. Unable to start IV on pt): morphine 4 mg IVP once; RASS on ca1 ADMIN: Combtv4, Very Agttd3, Agttd2, Rstlss1, AlertClm0, Drwsy-1, Lt Sdtn-2, Mod Sdtn-3, Dp Sdtn-4, UnArsble-5 18:35 Not Given (PT does not have IV. Blood drawn by performing arts technicians. Notified provider. Will give ca1 Zofran PO): Zofran 4 mg IVP once; over 2 minutes 18:35 Drug: Zofran 4 mg Route: PO; ca1 19:29 Follow up: Response: No adverse reaction; Nausea is decreased ca1 18:38 Drug: morphine 4 mg {Note: RASS - 0.} Route: IM; Site: right gluteus; ca1 19:29 Follow up: Response: No adverse reaction; Pain is decreased; RASS: Alert and Calm (0) ca1 Outcome: 19:15 Discharge ordered by MD. pm1 19:29 Discharged to home ambulatory, with significant other. ca1 19:29 Condition: stable 19:29 Discharge instructions given to patient, Instructed on discharge instructions, follow up and referral plans. Demonstrated understanding of instructions, follow-up care. 19:30 Patient left the ED. ca1 Signatures: Dispatcher [employer] EDMS Raya Fernando ArisChris, RN RN la1 Dylan Juárez, SCIENTIFIC DATABASE CURATOR SCIENTIFIC DATABASE CURATOR pm1 Judy Ny sm3 Acob, Keren, RN RN ca1
--- NOTE | 2019-05-06 19:37 | EDPHYS ---
Physician Documentation [facility] Name: Janine Colin Age: 54 yrs Sex: Female : 1965 Arrival Date: 05/06/2019 Time: 16:22 Bed 25 Private MD: out of town, doctor ED Physician Reji Medina HPI: 05/06 17:32 This 54 yrs old Female presents to ER via Ambulatory with complaints of Feet pm1 Swelling. 17:32 The patient presents with bilateral lower extremity swelling for the past 2 weeks. pm1 Greater to right than left. Context: The problem was sustained at home, resulted from an unknown cause, the patient can fully bear weight, the patient is able to ambulate, Problem is a result from a previous injury: No. Onset: The symptoms/episode began/occurred 2 week(s) ago. Modifying factors: The symptoms are alleviated by elevating leg, improved upon waking. the symptoms are aggravated by standing or sitting. Worse in the evening. Associated signs and symptoms: Pertinent negatives calf tenderness, chest pain, shortness of breath. Treatment prior to arrival includes: no previous treatment. The patient has been recently seen by a physician: the patient's primary care provider, Dr. Panchal. Given Lasix prescription last week and u/s of lower extremities 4 days ago. Does not feel that Lasix are improving symptoms and u/s 4 days ago was negative. however feels the swelling to right lower extermity is worse. Historical: - Allergies: 16:29 Seroquel; la1 - PMHx: 16:29 Depression; Anxiety; Fibromyalgia; High Cholesterol; la1 - Immunization history:: Adult Immunizations up to date. - Social history:: Smoking status: Patient uses tobacco products, smokes one-half pack cigarettes per day. - Ebola Screening: : No symptoms or risks identified at this time. ROS: 17:32 Constitutional: Negative for fever, chills, and weight loss, Eyes: Negative for injury, pm1 pain, redness, and discharge, ENT: Negative for injury, pain, and discharge, Neck: Negative for injury, pain, and swelling, Respiratory: Negative for shortness of breath, cough, wheezing, and pleuritic chest pain, Abdomen/GI: Negative for abdominal pain, nausea, vomiting, diarrhea, and constipation. 17:32 Back: Negative for injury and pain, : Negative for injury, bleeding, discharge, and swelling. 17:32 Skin: Negative for injury, rash, and discoloration, Neuro: Negative for headache, weakness, numbness, tingling, and seizure. 17:32 Cardiovascular: Positive for edema, Negative for chest pain, orthopnea, palpitations. 17:32 MS/extremity: Positive for pain, swelling, of the right foot, Negative for injury or acute deformity, decreased range of motion, deformity. Exam: 17:32 Constitutional: This is a well developed, well nourished patient who is awake, alert, pm1 and in no acute distress. Head/Face: Normocephalic, atraumatic. Eyes: Pupils equal round and reactive to light, extra-ocular motions intact. Lids and lashes normal. Conjunctiva and sclera are non-icteric and not injected. Cornea within normal limits. Periorbital areas with no swelling, redness, or edema. ENT: Nares patent. No nasal discharge, no septal abnormalities noted. Tympanic membranes are normal and external auditory canals are clear. Oropharynx with no redness, swelling, or masses, exudates, or evidence of obstruction, uvula midline. Mucous membranes moist. Neck: Trachea midline, no thyromegaly or masses palpated, and no cervical lymphadenopathy. Supple, full range of motion without nuchal rigidity, or vertebral point tenderness. No Meningismus. Chest/axilla: Normal chest wall appearance and motion. Nontender with no deformity. No lesions are appreciated. Cardiovascular: Regular rate and rhythm with a normal S1 and S2. No gallops, murmurs, or rubs. Normal PMI, no JVD. No pulse deficits. Respiratory: Lungs have equal breath sounds bilaterally, clear to auscultation and percussion. No rales, rhonchi or wheezes noted. No increased work of breathing, no retractions or nasal flaring. Abdomen/GI: Soft, non-tender, with normal bowel sounds. No distension or tympany. No guarding or rebound. No evidence of tenderness throughout. Back: No spinal tenderness. No costovertebral tenderness. Full range of motion. Skin: Warm, dry with normal turgor. Normal color with no rashes, no lesions, and no evidence of cellulitis. 17:32 Musculoskeletal/extremity: Extremities: grossly normal except: noted in the right foot: pain, swelling, tenderness, noted in the right rudolph: edema 1+, ROM: intact in all extremities, Circulation is intact in all extremities. Pulses: noted to be 2+ in the right dorsalis pedis artery and left dorsalis pedis artery. Vital Signs: 16:29 BP 107 / 74; Pulse 83; Resp 16; Temp 98.4; Pulse Ox 98% on R/A; Weight 72.57 kg; Height la1 5 ft. 2 in. (157.48 cm); 17:30 BP 95 / 53; Pulse 67; Resp 17 S; Pulse Ox 95% on R/A; ca1 19:12 BP 121 / 78; Pulse 70; Resp 16 S; Pulse Ox 94% on R/A; ca1 16:29 Body Mass Index 29.26 (72.57 kg, 157.48 cm) la1 MDM: 16:30 Patient medically screened. pm1 17:37 Data reviewed: vital signs. Data interpreted: Pulse oximetry: on room air is 98 %. pm1 Interpretation: normal. 19:14 Counseling: I had a detailed discussion with the patient and/or guardian regarding: the pm1 historical points, exam findings, and any diagnostic results supporting the discharge/admit diagnosis, lab results, radiology results, the need for outpatient follow up, to return to the emergency department if symptoms worsen or persist or if there are any questions or concerns that arise at home. 05/06 16:43 Order name: Basic Metabolic Panel; Complete Time: 19:14 pm1 05/06 16:43 Order name: CBC with Diff; Complete Time: 19:14 pm1 05/06 16:43 Order name: Extrem Venous W Compression Ashish US; Complete Time: 18:27 pm1 05/06 16:43 Order name: Chest Single View XRAY; Complete Time: 18:27 pm1 05/06 16:43 Order name: LFT's; Complete Time: 19:14 pm1 05/06 16:43 Order name: EKG; Complete Time: 16:44 pm1 05/06 16:43 Order name: EKG - Nurse/Tech; Complete Time: 17:59 pm1 05/06 16:43 Order name: Labs collected and sent; Complete Time: 18:41 pm1 Administered Medications: 18:35 Not Given (Will give IM. Unable to start IV on pt): morphine 4 mg IVP once; RASS on ca1 ADMIN: Combtv4, Very Agttd3, Agttd2, Rstlss1, AlertClm0, Drwsy-1, Lt Sdtn-2, Mod Sdtn-3, Dp Sdtn-4, UnArsble-5 18:35 Not Given (PT does not have IV. Blood drawn by epitaxial reactor technician. Notified provider. Will give ca1 Zofran PO): Zofran 4 mg IVP once; over 2 minutes 18:35 Drug: Zofran 4 mg Route: PO; ca1 19:29 Follow up: Response: No adverse reaction; Nausea is decreased ca1 18:38 Drug: morphine 4 mg {Note: RASS - 0.} Route: IM; Site: right gluteus; ca1 19:29 Follow up: Response: No adverse reaction; Pain is decreased; RASS: Alert and Calm (0) ca1 Disposition: 05/06/19 19:15 Discharged to Home. Impression: Edema, unspecified. - Condition is Stable. - Discharge Instructions: Peripheral Edema. - Medication Reconciliation Form, Thank You Letter, Antibiotic Education, Prescription Opioid Use form. - Follow up: Emergency Department; When: As needed; Reason: Worsening of condition. Follow up: Private Physician; When: 2 - 3 days; Reason: Recheck today's complaints, Continuance of care, Re-evaluation by your physician. - Problem is new. - Symptoms have improved. Addendum: 05/09/2019 07:02 Co-signature as Attending Physician, Reji Medina MD. r n Signatures: Dispatcher [employer] EDMS Reji Medina MD MD rn Attema, Lee, RN RN la1 Dylan Juárez, GEGE ASSISTED LIVING EXECUTIVE DIRECTOR pm1 Keren Patel RN RN ca1 Corrections: (The following items were deleted from the chart) 05/06 19:30 19:15 05/06/2019 19:15 Discharged to Home. Impression: Edema, unspecified. Condition is ca1 Stable. Forms are Medication Reconciliation Form, Thank You Letter, Antibiotic Education, Prescription Opioid Use. Follow up: Emergency Department; When: As needed; Reason: Worsening of condition. Follow up: Private Physician; When: 2 - 3 days; Reason: Recheck today's complaints, Continuance of care, Re-evaluation by your physician. Problem is new. Symptoms have improved. pm1
[2019-05-06 20:52] VITALS: BP 121/78; O2SAT 94
[2019-05-06 20:56] VITALS: TEMP 97.1
== END 2019-05-06 19:30 | disposition home or self-care (01) ==
LOC: ER 16:20
DX: R60.9 Edema, unspecified (principal); Z88.8 Allergy status to other drugs, medicaments and biological substances; F17.210 Nicotine dependence, cigarettes, uncomplicated
CPT/HCPCS: 93005; 85025; 80048; 36415; 80076; 71045; 93970; J2405; 96372; 99284

== ENCOUNTER 2020-09-27 13:15 | Emergency (ER) | payer OTHER ==
--- OUTSIDE RECORDS SUMMARY | 2020-09-27 13:20 | XMS REPORT | Summary of Care ---
:1965 Author Organization [facility] - Health Address [address] [place] [address] Care Team Providers Name Role Phone Geoffrey Sandoval Primary Care Provider Encounter Details Date Type Department Care Team Description 07/13/2020 Orders Only [facility] Doctor Unassigned, No [address] [facility] [place] [address] [address] [place] [address] Allergies Active Allergy Reactions Severity Noted Date Comments Quetiapine Unknown - See comments 10/05/2016 Goes into liver failure Quetiapine Fumarate Other - See comments 01/26/2018 Liver failure documented as of this encounter (statuses as of 07/13/2020) Medications Medication Sig Dispensed Refills Start Date End Date Status methocarbamol 500 mg Take 750 mg by 0 Active tablet mouth 2 (two) times daily. butalbital-acetaminophen Take 1 tablet by 0 Active -caff 50-325-40 mg mouth 2 (two) tablet times daily. ALPRAZolam 2 mg tablet Take 2 mg by 0 Active mouth 3 (three) times daily as needed for Anxiety. lurasidone (LATUDA) 60 Take 60 mg by 0 Active mg Tab mouth daily. lurasidone (LATUDA) 40 Take 40 mg by 0 Active mg tablet mouth daily. topiramate 100 mg tablet Take 100 mg by 0 Active mouth 2 (two) times daily. FLUoxetine 40 mg capsule Take 40 mg by 0 Active mouth 2 (two) times daily. atorvastatin 40 mg Take 40 mg by 0 Active tablet mouth at bedtime. sumatriptan 100 mg Take 100 mg by 0 Active tablet mouth as needed for Migraine. naproxen (NAPROSYN) 500 Take 1 tablet by 30 tablet 0 8 Active mg tablet mouth 2 (two) times daily with meals. documented as of this encounter (statuses as of 07/13/2020) Active Problems Problem Noted Date Venous insufficiency of both lower extremities 019 Fibromyalgia 07/01/2019 documented as of this encounter (statuses as of 07/13/2020) Social History Tobacco Use Types Packs/Day Years Used Date Current Every Day Smoker Cigarettes Sta rted: 1991 Sex Assigned at Date Recorded Not on file COVID-19 Exposure Response Date Recorded In the last month, have you been in contact with No / Unsure 07/13/2020 9:11 AM MANAGER HOME someone who was confirmed or suspected to have Coronavirus / COVID-19? documented as of this encounter Last Filed Vital Signs Not on filedocumented in this encounter Plan of Treatment Date Type Specialty Care Team Description 07/13/2020 Office Visit Orthopedic Surgery Mejia Stack, PAC Arrived [address] [id number] [phone] Health Maintenance Due Date Last Done Comments HEPATITIS C (HCV) SCREEN 1965 Depression Screening 1975 DTaP,Tdap,and Td Vaccines (1 - 1982 Tdap) PAP SMEAR 1984 Breast Cancer Screening 2003 (MAMMOGRAM) COLON CANCER SCREENING ANNUAL 2013 FIT/FOBT COLON CANCER SCREENING FIT DNA 2013 EVERY 3 YEARS COLON CANCER SCREENING 2013 SIGMOIDOSCOPY EVERY 5 YEARS COLONOSCOPY 2013 Colorectal Cancer Screening 2013 Zoster Recombinant Vaccine 2013 (SHINGRIX) (1 of 2) LUNG CANCER SCREEN: 2018 Recommended for age 55-80 with 30 + pack year history INFLUENZA VACCINE (#1) 2020 07/01/2019, 04/19/2018, 10/15/2015 PNEUMOCOCCAL 0-64 YEARS Aged Out No longe r eligible based COMBINED SERIES on patient's age to complete this to pic documented as of this encounter Procedures Procedure Name Priority Date/Time Associated Diagnosis Comme nts ASSIGNMENT OF BENEFITS Routine 07/13/2020 9:12 AM MANAGER HOME documented in this encounter Results Not on filedocumented in this encounter Insurance Payer Benefit Plan / Subscriber ID Effective Dates Phone Addre ss Type Group CIGNA HEALTH CIGNA [employer]ALTH [id number] 2018-[facility] Medicare Adv spring nt HMO documented as of this encounter
--- OUTSIDE RECORDS SUMMARY | 2020-09-27 13:20 | XMS REPORT | Clinical Summary ---
:1965 Author Organization [facility] Address [address] [facility] [address] [address] Care Team Providers Name Role Phone MD Venkat Primary Care Provider Allergies Active Allergy Reactions Severity Noted Date Comments Quetiapine 10/05/2016 Goes into liver failure Medications Medication Sig Dispensed Refills Start Date End Date Status carisoprodol (SOMA) 350 TK 1 T PO BID FOR 0 017 Active MG tablet MUSCLE SPASMS. HYDROcodone-acetaminoph TK 1 T PO QID FOR 0 017 Active en (NORCO) 10-325 mg CHRONIC PAIN. per tablet rosuvastatin (CRESTOR) TK 1 T PO QHS FOR 3 6 Active 10 MG tablet HYPERLIPIDEMIA traMADol (ULTRAM) 50 mg TK 1 T PO QD FOR 0 08/31/19 17 Active tablet BREAKTHROUGH PAIN. zolpidem (AMBIEN) 10 mg TK 1 T PO QHS FOR 0 017 Active tablet INSOMNIA. FLUoxetine (PROzac) 40 Take [...] MG tablet VENTOLIN HFA 90 0 03/27/2017 Act toñito mcg/actuation inhaler REXULTI 1 mg tablet 1 05/09/2017 Active tablet BREO ELLIPTA 100-25 1 03/29/2017 Active mcg/dose blister with device powder for inhalation SPIRIVA RESPIMAT 2.5 1 05/09/2017 Active mcg/actuation mist Active Problems Problem Noted Date 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 05/14/2017 Tobacco abuse disorder 05/14/2017 Sore throat 12/21/2016 Cervical spondylosis with myelopathy and radiculopathy 11/01/2016 Cervical spondylosis with myelopathy 10/05/2016 Surgical History Surgery Date Site/Laterality Comments SECTION ROTATOR CUFF REPAIR 08/27/1979 - Right 08/26/1980 TONSILLECTOMY CENTRAL VENOUS CATHETER INSERTION CENTRAL VENOUS CATHETER REMOVAL EXPLORATORY LAPAROTOMY due to ov lazara cyst , at that time patien t was and had miscarriage a we ek aftger surgery PARTIAL HYSTERECTOMY DISCECTOMY, CERVICAL, WITH 11/01/2016 Neck/Anterior Proce dure: ANTERIOR FUSION, ANTERIOR APPROACH CERVIC AL DISCECTOMY AND FUSION C5-C7, RI GHT ILIAC CREST BONE MARROW ASPIRATION; Alex geon: Aleks Hood MD; Location: [facility]; Service: Neurosu rgery; Laterality: Ante rior; Medical devices from this surgery are in the Implants section . Medical History Medical History Date Comments Depression Hyperlipidemia Migraines daily Pain neck, arm, shoulder pain left side Fibromyalgia Arthritis osteoathritis back Does not exercise some sob/no chest pa in on stairs Anesthesia NO IV access- diffic ult stick- needs central line//nfhap Diabetes mellitus (HCC) Does not check m orning glucose; DOES NOT HAVE, STRONG FAMILY HISTORY Liver failure (HCC) 2013 Resolved when Seroqu el stopped. No problem since. Family History Medical History Relation Name Comments Diabetes Brother alireza Heart disease Brother alireza Leukemia Brother alireza Diabetes Brother zaira Diabetes Father Heart disease Father Kidney disease Father Diabetes Mother Heart disease Mother Thyroid disease Mother Diabetes Sister Thyroid disease Sister Relation Name Status Comments Brother alireza Brother zaira Alive Father Mother of heart at tack Sister Alive Social History Tobacco Use Types Packs/Day Years Used Date Current Every Day Smoker Cigarettes 1 3 Smokeless Tobacco: Never Used Alcohol Use Drinks/Week oz/Week Comments No Sex Assigned at Date Recorded Not on file Last Filed Vital Signs Not on file Plan of Treatment Health Maintenance Due Date Last Done Comments COVID-19 VACCINE (1 of 2) 1979 CERVICAL CANCER SCREENING 1984 BREAST CANCER SCREENING 2013 COLONOSCOPY SCREENING 2013 SHINGLES VACCINES (#1) 2013 INFLUENZA VACCINE 03/27/2020 Implants Implanted Type Area Marine Consultant Device Shelf Model / Identifier Expiration Serial / Date Lot Matrix Hmstc Floseal 10ml W/ Humn F2 - [id number] Human N/A: N/A BRICENO 02/23/2018 [id number] / Implanted: Qty: 1 on 11/01/2016 at [facility] Tissue BI OSCIENCE / Implants [id number] Kit Putty Bone 1.5ml Mastergraft - [id number] Human N/A: N/A ME DTRONIC 03/26/2020 [id number] / Implanted: Qty: 1 on 11/01/2016 at [facility] Tissue SP INAL AND / Implants BIOLOGICS [id number] Cage [id number] Anatomic Ptc [id number] - [id number] IMPLANT Anteri or: MEDTRONIC 03/27/2024 [id number] / Implanted: Qty: 1 on 11/01/2016 at [facility] DEVICES Spine SO FAMOR DANEK / Cervical 82CE Cage [id number] Anatomic Ptc [id number] - [id number] [id number] IMPLANT Anteri or: MEDTRONIC 04/11/2024 [id number] / Implanted: Qty: 1 on 11/01/2016 at [facility] DEVICES Spine SO FAMOR DANEK / Cervical 07CG Screw Spinal Slf-Drl Karuna 4x15mm - [id number] Spinal N/A: N/A MEDTRO BULL [id number] / Implanted: Qty: 3 on 11/01/2016 at [facility] Implants SP INAL AND / BIOLOGICS Screw Spinal Slf-Drl Karuna 4x15mm - [id number] Spinal N/A: N/A MEDTRO BULL [id number] / Implanted: Qty: 3 on 11/01/2016 at [facility] Implants SP INAL AND / BIOLOGICS Plate Cerv 37.5mm [place] Elite - [id number] Spinal N/A: N/A MEDTR ONIC [id number] / Implanted: Qty: 1 on 11/01/2016 at [facility] Implants SP INAL AND / BIOLOGICS Results Not on fileafter 09/27/2019 Insurance Payer Benefit Plan / Subscriber ID Effective Dates Phone Addre ss Type Group MEDICARE MEDICARE PART A [id number] 2013-Present [facility] Medicare AND B Advance Directives For more information, please contact: [phone] Type Date Recorded Patient Clinical Immunologist Explanati on Advance Directives, 12/21/2016 11:14 AM Living Will and Medical Power of Supervisor [employer] Advance Directives, 11/06/2016 11:00 AM Living Will and Medical Power of Supervisor [employer] Advance Directives, 11/06/2016 11:00 AM Living Will and Medical Power of Supervisor [employer] Code Status Date Activated Date Inactivated Comments Full Code 11/01/2016 8:48 PM 11/02/2016 1:21 PM Code Status decision reached by: Patient
--- OUTSIDE RECORDS SUMMARY | 2020-09-27 13:20 | XMS REPORT | Continuity of Care Document ---
:1965 Author Organization [facility] Care Team Providers Name Role Phone [facility] Unavailable Un available Problems Problem Status Onset Classification Date Comments Sourc e Date Reported ABDOMINAL Active 03/15/20 Condition 04/09/2015 Medica l DISTENSION 15 Group ABDOMINAL PAIN, Active 03/15/20 Condition 04/09/2015 Medical GENERALIZED 15 Group PELVIC PAIN Active 03/15/20 Condition 04/09/2015 Medi alphonso 15 Group OVARIAN CYST, LEFT Active 03/15/20 Condition 04/09/2015 Medical 15 Group Osteoarthritis Active Problem 05/09/2019 [facility] Ankle edema Active Problem 05/09/2019 [facility] Fibromyalgia Active Problem 05/09/2019 [facility] Medications Medication Details Route Status Patient Ordering Order Source Instructions Provider Date HYDROCODONE-BRAYDEN 1 tab by Active TAMINOPHEN mouth 4 x Medical 10-325 MG/15ML daily for Group SOLN chronic pain SOMA 350 MG 1 tab by Active TABS mouth 3 x Medical daily for Group muscle spasms. CRESTOR 10 MG 1 tab by Active TABS mouth once Medical daily Group AMBIEN 10 MG 1 tab by Active TABS mouth at Medical bedtime as Group needed for insomnia CYMBALTA 60 MG 1 tab by Active CPEP mouth once Medical daily Group ABILIFY 10 MG 1 tab by Active TABS mouth each Medical pm Group NEURONTIN 300 1 cap by Active MG CAPS mouth 3 x Medical daily Group ALPRAZOLAM 2 MG 1 tab by Active TBDP mouth 2 x Medical daily Group TOPAMAX 50 MG 1 tab by Active TABS mouth 2 x Medical daily Group HERBAL 2 x daily Active EQUILIBRIUM for hot Medical flashes Group PROGESTERONE 2 x daily Active MICRONIZED CREA topical for Medi alphonso hot flashes Group BLACK COHOSH 1 cap by Active 540 MG CAPS mouth once Medical daily for Group hot flashes VITAMIN D3 2000 1 cap by Active mouth once Medical daily Group NICOTINE PT24 Active Medical Group ABILIFY 10 MG 1 tab by Active MH TABS mouth each Medical pm Group Latuda 2 tablets Orally Active 40 MG Orally [facility] with food Once a day of [facility] Butalbital-Acet 1 tablet as Orally Active 50-325 MG [facility] aminophen needed Orally once a of [facility] day Atorvastatin 1 tablet Orally Active 40 MG Orally [facility] Calcium Once a day of [facility] Topamax 1 tablet Orally Active 100 MG Orally [facility] twice a day of [facility] Xanax 1 tablet Orally Active 2 MG Orally [facility] Twice a day of [facility] Tylenol # 3 not defined NA Active [facility] Imitrex 1 tablet as Orally Active 100 MG Orally [facility] needed Once a day of [facility] Tamsulosin HCl 1 capsule Orally Active 0.4 MG Orally [facility] 30 minutes Once a day [facility] after the same meal each day Prozac 1 capsule Orally Active 40 MG Orally [facility] twice a day [facility] Allergies, Adverse Reactions, Alerts Substance Category Reaction Severity Reaction Status Date Comments S ource type Reported SEROQUEL Food SEROQUEL MH allergy 5 Medical Group Seroquel Adverse Info Not Adverse Active Rheu m Reaction Available Reaction [facility] Immunizations No Data Provided for This Section Results No Data Provided for This Section Pathology Reports No Data Provided for This Section Diagnostic Reports Report Value Date Source Abdomen complete US Exam: Abdominal Ultrasound 03/15/2015 [facility] [employer] Reason for Exam: Generalized abdominal pain Comparison Exam: None Discussion: Multiple axial and sagittal images were obtained of the abdomen. The liver is of normal size and echogenicity. No focal hepatic masses identified. No intrahepatic or extrahepatic biliary duct dilation, with the common bile duct me asuring 0.4 cm. No gallstones or gallbladder sludge. No gallbladder wall thickening or pericholecystic fluid. Sonographic Scott's sign is negative. The visualiz ed portions of the pancreati c head and proximal body are within normal limits. The spleen is of normal echogenicity measuring 8.3 cm in length. The visualized portions of the upper abdominal aorta and IVC are unremarkable. No evidence seen for asci navid. The right and left kidneys m easure 9.9 cm and 10.0 cm respectively. They are of normal echogenicity without focal masses, hydronephrosis, or shadowing renal calculi. Impression: 1. Unremarkable abdominal ultrasound Pelvis w Pelvis Exam: Pelvic ultrasound. 03/15/2015 [facility] Transvaginal [facility] Reason for Exam: Generalized abdominal pain Comparison Exam: None Discussion: Multiple axial and sagittal images of the pelvis were obtained transabdominally and transvaginally. The patient is status post hysterectomy. No abnormal midline masses identified. The right ovary measures 1.9 x 1.6 0.2 cm. It is of normal echogenicity without focal masses. The left ovary measures 2.7 x 2.3 x 1.8 cm. It is of unremarkable echogenicity. A slightly complex cyst is s een within the left ovary me asuring 1.5 x 1.2 x 0.9 cm. Doppler and waveform evaluations of the ovaries are unremarkable. No free fluid seen within th e pelvic cul-de-sac. The bladder is unremarkable in appearance. Impression: 1. No acute abnormalities s een within the pelvis. Note is made of a sightly complex cyst seen within the left ovary measuring up to 1.5 cm. Consultation Notes No Data Provided for This Section Discharge Summaries No Data Provided for This Section History and Physicals No Data Provided for This Section Vital Signs Vital Sign Value Date Comments Source Weight 161.0 05/08/2019 [facility] Height 62 05/08/2019 [facility] Heart Rate 67 05/08/2019 [facility] Diastolic (mm Hg) 79 05/08/2019 [facility] Systolic (mm Hg) 107 05/08/2019 [facility] Weight 156 04/09/2015 [facility] Systolic (mm Hg) 108 04/09/2015 Medical Group Diastolic (mm Hg) 75 04/09/2015 Medical Group Heart Rate 82 04/09/2015 [facility] Height 62 03/15/2015 [facility] Weight 152 03/15/2015 [facility] p Temperature Oral (F) 98.2 F 03/15/2015 [facility]i [facility]phon[facility] Group Heart Rate 80 03/15/2015 Medical Gr[facility] p Systolic (mm Hg) 99 03/15/2015 Medical Group Diastolic (mm Hg) 69 03/15/2015 Medical Group Encounters Location Location Encounter Encounter Reason Attending ADM DE Stat Source Details Type Number For Provider Date Date Visit [facility] [id number] 03/15 [place] Visit 46969 /2014 Medic al Medical MD [facility] [id number] KEESHA03/15 [facility] Out[facility] Diag [id number] Keesha03/15 [facility] [id number] NADIM ISADORA 03/23 [facility] [place] [facility] [id number] 04/08 [facility] 3 [facility] Office [id number] Maddie04/09 [place] Medical Visit 8[address]29 MD Mario /2014 Me dical [facility] [address] Outpatient [id number] 04/09 [facility] 4 [place] [facility] [id number] 04/21 Active [facility] 1 [place] [facility] [id number] 05/19 [facility] [id number] 05/19 [facility] e [facility] 8 [place] Outpatient [id number] ULTRASOUND 05/19 [facility] ve [facility] 0 VISIT /2014 [place] Outpatient [id number] ULTRASOUND 07/09 [facility] 5 VISIT [place] Outpatient [id number] 07/09 [facility] [id number] 07/29 [facility] [id number] MADDIE 03/30 [facility] 1 [place] Procedures Procedure Code Date Perfomer Comments Source colonoscopy 39513 04/09/201501/2015 Medical Group smoking/tobacco 14 03/15/2015 yes Medica l cessation, patient Group education and counseling Assessment and Plan No Data Provided for This Section Plan of Care No Data Provided for This Section Social History Social History Date Source No data available for this 03/16/2015 [facility] section Family History No Data Provided for This Section Advance Directives No Data Provided for This Section Functional Status No Data Provided for This Section
--- OUTSIDE RECORDS SUMMARY | 2020-09-27 13:21 | XMS REPORT | Summary of Care ---
:[address] [facility] Address [address] [place] [address] Care Team Providers Name Role Phone Geoffrey Sandoval Primary Care Provider Encounter Details Date Type Department Care Team Description 07/14/2020 Prep For Surgery [facility] Calvin Tucker Closed b imalleolar Orthopaedic Surgery- MD Gia fracture of left [place] [address] ankle, initial [address], [address] encounter (Primary [address] [place], [place] Dx) [place] [id number] [phone] Allergies Active Allergy Reactions Severity Noted Date Comments Quetiapine Unknown - See comments 10/05/2016 Goes into liver failure Quetiapine Fumarate Other - See comments 01/26/2018 Liver failure documented as of this encounter (statuses as of 07/14/2020) Medications Medication Sig Dispensed Refills Start Date End Date Status methocarbamol 500 mg Take 750 mg by 0 Active tablet mouth 2 (two) times daily. butalbital-acetaminophe Take 1 tablet by 0 Active n-caff 50-325-40 mg mouth 2 (two) tablet times daily. ALPRAZolam 2 mg tablet Take 2 mg by 0 Active mouth 3 (three) times daily as needed for Anxiety. lurasidone (LATUDA) 60 Take 60 mg by 0 Active mg Tab mouth daily. lurasidone (LATUDA) 40 Take 40 mg by 0 Active mg tablet mouth daily. topiramate 100 mg Take 100 mg by 0 Active tablet mouth 2 (two) times daily. FLUoxetine 40 mg Take 40 mg by 0 Active capsule mouth 2 (two) times daily. atorvastatin 40 mg Take 40 mg by 0 Active tablet mouth at bedtime. sumatriptan 100 mg Take 100 mg by 0 Active tablet mouth as needed for Migraine. naproxen (NAPROSYN) 500 Take 1 tablet by 30 tablet 0 8 Active mg tablet mouth 2 (two) times daily with meals. furosemide 20 mg tablet TAKE ONE TABLET 0 05/04/2020 Active BY MOUTH TWICE A DAY omega-3 fatty acids Take 1 capsule by 0 Active capsule mouth. acetaminophen-codeine Take 1 tablet by 40 tablet 0 07/13/2020 Active (TYLENOL-CODEINE #3) mouth every 4 300-30 mg (four) hours as tabletIndications: needed for Pain acute pain (scale 4-6) or Pain (scale 7-10). Indications: acute pain documented as of this encounter (statuses as of 07/14/2020) Active Problems Problem Noted Date Venous insufficiency of both lower extremities 019 Fibromyalgia 07/01/2019 documented as of this encounter (statuses as of 07/14/2020) Social History Tobacco Use Types Packs/Day Years Used Date Current Every Day Smoker Cigarettes Sta rted: 1989 Smokeless Tobacco: Never Used Alcohol Use Drinks/Week oz/Week Comments Never Alcohol Habits Answer Date Recorded How often do you have a drink containing alcohol? Never 07/13/2020 How many drinks containing alcohol do you have on a typical Not asked 07/13/2020 day when you are drinking? How often do you have six or more drinks on one occasion? 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 documented as of this encounter Last Filed Vital Signs Not on filedocumented in this encounter Plan of Treatment Name Type Priority Associated Diagnoses Order S chedule CBC WITH DIFF LAB Routine Closed bimalleolar 1 Occurr ences fracture of left starting ankle, initial until 021 encounter BASIC METABOLIC LAB Routine Closed bimalleolar 1 Occu rrences PANEL (NA, K, CL, fracture of left starti ng 07/14/2020 CO2, GLUCOSE, BUN, ankle, initial until 1 09/13/2020 CREATININE, CA) encounter URINALYSIS LAB Routine Closed bimalleolar 1 Occurre nces fracture of left starting ankle, initial until 021 encounter XR CHEST 2 VW IMAGING Routine Closed bimalleolar 1 Occurr ences fracture of left starting ankle, initial until 021 encounter EKG-12 LEAD ROUTINE HEART STATION Routine Closed bimalleolar 1 Occurrences fracture of left starting ankle, initial until 021 encounter Health Maintenance Due Date Last Done Comments HEPATITIS C (HCV) SCREEN 1965 PNEUMOCOCCAL 0-64 YEARS COMBINED 1969 SERIES (1 of 1 - PPSV23) Depression Screening 1975 DTaP,Tdap,and Td Vaccines (1 - Tdap) 1982 PAP SMEAR 1984 Breast Cancer Screening (MAMMOGRAM) 2003 COLON CANCER SCREENING ANNUAL 2013 FIT/FOBT COLON CANCER SCREENING FIT DNA EVERY 2013 3 YEARS COLON CANCER SCREENING SIGMOIDOSCOPY 2013 EVERY 5 YEARS COLONOSCOPY 2013 Colorectal Cancer Screening 2013 Zoster Recombinant Vaccine (SHINGRIX) 2013 (1 of 2) LUNG CANCER SCREEN: Recommended for 2018 age 55-80 with 30 + pack year history INFLUENZA VACCINE (#1) 2020 07/01/2019, 04/19/2018, 10/15/2015 documented as of this encounter Results Not on filedocumented in this encounter Visit Diagnoses Diagnosis Closed bimalleolar fracture of left ankl e, initial encounter - Primary documented in this encounter Insurance Payer Benefit Plan / Subscriber ID Effective Dates Phone Addre ss Type Group [employer] [id number] 2018-Prese Medicare Adv spring nt HMO documented as of this encounter
--- OUTSIDE RECORDS SUMMARY | 2020-09-27 13:21 | XMS REPORT | Summary of Care ---
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/Right Ankle Sprained/Has Films Suhas Stack, Suhas Stack, RN PHYSICIAN OFFICE / Procedures CONSULT/REFERRAL ORTHOPAEDIC SURGERY NEW VISIT (FIRST TIME) PAC PAC Orthopedic Surgery [address] [place] [phone] Phone: Fax: Encounter Details Date Type Department Care Team Description 07/13/2020 Office Visit [facility] Orthopaedic Suhas Stack C losed bimalleolar fracture of left ankle, initial encounter (Primary Dx); Surgery- [place] PAC Sprain of posterior talofibular ligament of right ankle, initial encounter [address], [address] [place] [place] [address] [place] [address] [place], [place] [phone] Allergies Active Allergy Reactions Severity Noted Date [...] with No / Unsure 07/13/2020 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 documented as of this encounter Last Filed Vital Signs Vital Sign Reading Time Taken Comments Blood Pressure - - Pulse - - Temperature - - Respiratory Rate - - Oxygen Saturation - - Inhaled Oxygen - - Concentration Weight 61.2 kg (135 lb) 07/13/2020 9:16 patient report ed - in AM ROCK DUST SPRAYER wheelchair Height 157.5 cm (5' 2") 07/13/2020 9:16 AM ROCK DUST SPRAYER Body Mass Index 24.69 07/13/2020 9:16 AM ROCK DUST SPRAYER documented in this encounter Progress Notes Suhas Stack, PAC - 07/13/2020 9:15 AM CST Cc: Chief Complaint Patient presents with Ankle Pain NCEP - Bilateral ankle injury DOI 07/08/2020. Carrying box of toys outside for her grandson. She missed a step and hurt both her ankles. She fractured her left ankle previously. Arrived in wheelchair. Films available from [facility]. Arlin Darby 07/13/2020 9:21 AM Janine Colin is a 55 year old female. date of injury 07/08/2020 she had a fall after missing a step she was seen in [facility] x-rays were obtained she was diagnosed with a left ankle fracture and a right ankle sprain. Pain in her left ankle is 9/10 in intensity she came in today with a splint on from the emergency department at's a stirrup splint. There were no blisters or open wounds on her left ankle prior to splinting. She was told in the emergency department that her right ankle is badly sprained She has difficulty with IV access they could not obtain IV access in the emergency room, she could not get external jugular access or femoral access, she is capable of getting a central line. Allergies Janine is allergic to quetiapine and seroquel [quetiapine fumarate]. Medications Outpatient Medications Prior to Visit Medication Sig Dispense Refill furosemide 20 mg tablet TAKE ONE TABLET BY MOUTH TWICE A DAY omega-3 fatty acids capsule Take 1 capsule by mouth. ALPRAZolam 2 mg tablet Take 2 mg by mouth 3 (three) times daily as needed for Anxiety. atorvastatin 40 mg tablet Take 40 mg by mouth at bedtime. [id number] 50-325-40 mg tablet Take 1 tablet by mouth 2 (two) times daily. FLUoxetine 40 mg capsule Take 40 mg by mouth 2 (two) times daily. lurasidone (LATUDA) 40 mg tablet Take 40 mg by mouth daily. lurasidone (LATUDA) 60 mg Tab Take 60 mg by mouth daily. methocarbamol 500 mg tablet Take 750 mg by mouth 2 (two) times daily. sumatriptan 100 mg tablet Take 100 mg by mouth as needed for Migraine. topiramate 100 mg tablet Take 100 mg by mouth 2 (two) times daily. naproxen (NAPROSYN) 500 mg tablet Take 1 tablet by mouth 2 (two) times daily with meals. 30 tablet 0 No facility-administered medications prior to visit. Histories Past Medical History: Diagnosis Date Ankylosing spondylitis Anxiety 2013 Bipolar 1 disorder 2013 Depression 1980 Fibromyalgia 1999 Past Surgical History: Procedure Laterality Date SECTION 1992 HYSTEROSCOPY,UTERUS,UNL PROC 1994 REPAIR ROTATOR CUFF,ACUTE Right 2013 SPINAL FUSION,ANT,EA ADNL LEVEL Upper Social History Socioeconomic History Marital status: Spouse name: Not on file Number of children: Not on file Years of education: Not on file Highest education level: Not on file Occupational History Not on file Social Needs Financial resource strain: Not on file Food insecurity Worry: Not on file Inability: Not on file Transportation needs Medical: Not on file Non-medical: Not on file Tobacco Use Smoking status: Current Every Day Smoker Types: Cigarettes Start date: 1989 Smokeless tobacco: Never Used Substance and Sexual Activity Alcohol use: Never Frequency: Never Binge frequency: Never Drug use: Not on file Sexual activity: Not on file Lifestyle Physical activity Days per week: Not on file Minutes per session: Not on file Stress: Not on file Relationships Social connections Talks on phone: Not on file Gets together: Not on file Attends sabianist service: Not on file Active member of club or organization: Not on file Attends meetings of clubs or organizations: Not on file Relationship status: Not on file Intimate partner violence Fear of current or ex partner: Not on file Emotionally abused: Not on file Physically abused: Not on file Forced sexual activity: Not on file Other Topics Concern Not on file Social History Narrative Not on file No family history on file. Review of Systems Constitutional: Negative. HENT: Negative. Eyes: Negative. Breasts: Negative. Cardiovascular: Negative. Gastrointestinal: Negative. Genitourinary: Negative. Musculoskeletal: Positive for gait problem and joint swelling. Skin: Negative. Psychiatric/Behavioral: Negative. Endocrine: Endocrine negative Vital Signs Ht 62" (157.5 cm) | Wt 61.2 kg (135 lb) | BMI 24.69 kg/m Physical Exam Musculoskeletal: Comments: Physical Exam Constitutional: oriented to person, place, and time. appears well-developed and well-nourished. HENT: Head: Normocephalic and atraumatic. Right Ear: External ear normal. Left Ear: External ear normal. Eyes: Conjunctivae are normal. Neck: Normal range of motion. No strabismus Neck supple. Cardiovascular: Normal rate and regular rhythm. Pulmonary/Chest: Normal respiratory rate equal chest rise and fall in no apparent distress Abdominal: Abdomen nondistended nontender Neurological: alert and oriented to person, place, and time. No asymmetry Skin: Skin is warm and dry. Psychiatric: normal mood and affect. behavior is normal. Judgment and thought content normal. Nursing note and vitals reviewed. She has a stirrup splint on her left ankle there is bruising on her dorsal foot. Right ankle she has point tenderness to palpation of the anterior talo fibular ligament posterior talo fibular ligament her calcaneofibular ligament is nontender she has a slight discomfort on her deltoid ligament and the medial malleolus is nontender she is slightly tender on the lateral malleolus she has ecchymosis and edema in the anterior aspect and lateral aspect of her right ankle the edema extends down to her dorsal foot she arrived today with compression with an Messi wrap X-rays reviewed from [facility] dated 07/08/2020 there is an oblique fracture of the lateral malleolus and a medial malleolus fracture on the left ankle This is not a stable fracture pattern and will require open reduction internal fixation right ankle x-rays were not able to be opened but the radiology report accompanying said no acute radiographic abnormality in the right ankle Assessment/Plan 1. Closed bimalleolar fracture of left ankle, initial encounter 2. Sprain of posterior talofibular ligament of right ankle, initial encounter We will schedule her for open reduction internal fixation of the left ankle We will need a central line for IV access, and she needs cardiac clearance. We'll schedule her for Sunday I have discussed the patient's physical exam and reviewed their x- rays/imaging/results with them in detail. Discussed surgery at great lengths regarding risks and benefits. Explained as with any procedure there may be pain, damage to nerve and vascular structures, fat embolism, need for additional surgery, failure of procedure to relieve pain. We spoke of recovery time, expected outcome, possible restrictions and anticipation return to work date as well as possible rehabilitation if needed or required after the surgery. All questions have been answered. Condition and plans were discussed with patient, who expressed understanding and is agreeable to theplan. She will go into a cast boot for her right ankle. We will continue the left ankle splint. documented in this encounter Miscellaneous Notes Addendum Note - Suhas Stack PAC - 07/13/2020 9:15 AM ROCK DUST SPRAYER Addended by: SUHAS FULLER on: 07/13/2020 10:45 AM Modules accepted: Orders DUST SPRAYER documented in this encounter Plan of Treatment Health Maintenance Due Date [...] left ankl e, initial encounter - Primary Sprain of posterior talofibular ligament of right ankle, initial encounter documented in this encounter Insurance Payer Benefit Plan / Subscriber ID Effective Dates Phone Addre ss Type Group [id number] 2018-Prese Medicare Adv spring nt HMO documented as of this encounter
--- OUTSIDE RECORDS SUMMARY | 2020-09-27 13:21 | XMS REPORT | Summary of Care ---
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 Sprained/Has Films Mejia Stack, Mejia Stack, MACHINE ERECTOR / Procedures CONSULT/REFERRAL ORTHOPAEDIC SURGERY NEW VISIT (FIRST TIME) PAC PAC Orthopedic Surgery [address] [place] [place] [phone] Phone: Fax: Encounter Details Date Type Department Care Team Description 07/13/2020 Office Visit [facility] Orthopaedic Mejia Stack C losed bimalleolar fracture of left ankle, initial encounter (Primary Dx); Surgery- [place] PAC Sprain of posterior talofibular ligament of right ankle, initial encounter [address], [address] [place] [address] [place] [address] [place], [place] [phone] Allergies Active Allergy Reactions Severity Noted [...] 1 capsule by 0 Active capsule mouth. documented as of this encounter (statuses as [...] with No / Unsure 07/13/2020 9:11 AM RELATIONS SPECIALIST someone who was confirmed or suspected to have Coronavirus / COVID-19? documented as of this encounter Last Filed Vital Signs Vital Sign Reading Time Taken Comments Blood Pressure - - Pulse - - Temperature - - Respiratory Rate - - Oxygen Saturation - - Inhaled Oxygen - - Concentration Weight 61.2 kg (135 lb) 07/13/2020 9:16 patient report ed - in AM RELATIONS SPECIALIST wheelchair Height 157.5 cm (5' 2") 07/13/2020 9:16 AM RELATIONS SPECIALIST Body Mass Index 24.69 07/13/2020 9:16 AM RELATIONS SPECIALIST documented in this encounter Progress Notes Mejia Stack, PAC - 07/13/2020 9:15 AM CST Cc: Chief Complaint Patient presents with Ankle Pain NCEP - Bilateral ankle injury DOI 07/08/2020. Carrying box of toys outside for her grandson. She missed a step and hurt both her ankles. She fractured her left ankle previously. Arrived in wheelchair. Films available from [facility]. Arlin Dealos 07/13/2020 9:21 AM Janine Colin is a 55 year old female. date of injury 07/08/2020 she had a fall after missing a step she [facility] she was diagnosed with [...] Take 40 mg by mouth at bedtime. pegdkwcqdv-bbwmqrsheyjbd-dvcb 50-325-40 mg tablet Take 1 tablet by [...] Anxiety 2013 Bipolar 1 disorder 2013 Depression 1981 Fibromyalgia 1999 Past Surgical History: Procedure Laterality Date SECTION 1992 HYSTEROSCOPY,UTERUS,UNL PROC 1994 REPAIR ROTATOR CUFF,ACUTE Right 2012 SPINAL FUSION,ANT,EA ADNL LEVEL Upper Social History [...] file Gets together: Not on file Attends mu-ism service: Not on file Active member of [...] with an Messi wrap [facility] dated 07/08/2020 there is an oblique fracture [...] left ankle splint. documented in this encounter Plan of Treatment [...] Effective Dates Phone Addre ss Type Group [employer] [phone] 2018-Prese Medicare Adv spring nt HMO documented as of this encounter
--- OUTSIDE RECORDS SUMMARY | 2020-09-27 13:21 | XMS REPORT | Summary of Care ---
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/Has Films Mejia Stack, Mejia Stack, DIRECTOR OF COMPENSATION / Procedures CONSULT/REFERRAL ORTHOPAEDIC SURGERY NEW VISIT (FIRST TIME) PAC PAC Orthopedic Surgery [address] [place] [phone] Phone: Fax: Encounter Details Date Type Department Care Team Description 07/13/2020 Office Visit [facility] Orthopaedic Mejia Stack C losed bimalleolar fracture of left ankle, initial encounter (Primary Dx); Surgery- [place] PAC Sprain of posterior talofibular ligament of right ankle, initial encounter [address], [address] [place] [place] [address] [address] [place], [place] [phone] Allergies Active Allergy Reactions Severity Noted [...] with No / Unsure 07/13/2020 9:11 AM QUEBRACHO TANNER someone who was confirmed or suspected to have Coronavirus / COVID-19? documented as of this encounter Last Filed Vital Signs Vital Sign Reading Time Taken Comments Blood Pressure - - Pulse - - Temperature - - Respiratory Rate - - Oxygen Saturation - - Inhaled Oxygen - - Concentration Weight 61.2 kg (135 lb) 07/13/2020 9:16 patient report ed - in AM QUEBRACHO TANNER wheelchair Height 157.5 cm (5' 2") 07/13/2020 9:16 AM QUEBRACHO TANNER Body Mass Index 24.69 07/13/2020 9:16 AM QUEBRACHO TANNER documented in this encounter Progress Notes Mejia Stack, PAC - 07/13/2020 9:15 AM CST Cc: Chief Complaint Patient presents with Ankle Pain NCEP - Bilateral ankle injury DOI 07/08/2020. Carrying box of toys outside for her grandson. She missed a step and hurt both her ankles. She fractured her left ankle previously. Arrived in wheelchair. Films available from [facility]. Arlin Dealos 07/13/2020 9:21 AM Janine Colin is a 55 year old female. date of injury 07/08/2020 she had a fall after missing a step she was seen in [facility] x-rays were obtained she was diagnosed with [...] Take 40 mg by mouth at bedtime. psoguprzvn-divwfhsqmsndj-jvsf 50-325-40 mg tablet Take 1 tablet by [...] file Gets together: Not on file Attends jain service: Not on file Active member of [...] with an Messi wrap X-rays reviewed from [facility] dated 07/08/2020 there is an oblique fracture [...] Effective Dates Phone Addre ss Type Group [employer] [phone] 2018-Prese Medicare Adv spring nt HMO documented as of this encounter
--- OUTSIDE RECORDS SUMMARY | 2020-09-27 13:22 | XMS REPORT | Summary of Care ---
:1965 Author Organization [facility] - Health Address [address] [place] [address] Care Team Providers Name Role Phone Geoffrey Sandoval Primary Care Provider Reason for Visit Reason Comments Ankle Pain S/P ankle Fx. Encounter Details Date Type Department Care Team Description 07/15/2020 Emergency ADC-Emergency Armani Wood Inadequat e pain control Department (Primary Dx) [address] [place] [address] Dr [address] [place] [address] [id number] [place] [address] [phone] Allergies Active Allergy Reactions Severity Noted Date Comments Quetiapine Unknown - See comments 10/05/2016 Goes into liver failure Quetiapine Fumarate Other - See comments 01/26/2018 Liver failure documented as of this encounter (statuses as of 07/15/2020) Medications Medication Sig Dispensed Refills Start Date [...] as of this encounter (statuses as of 07/15/2020) Active Problems Problem Noted Date Closed bimalleolar fracture of left ankle, initial enc ounter 07/14/2020 Overview: Added automatically from request for nora longy [id number] Venous insufficiency of both lower extremities 019 Fibromyalgia 07/01/2019 documented as of this encounter (statuses as of 07/15/2020) Social History Tobacco Use Types Packs/Day Years [...] been in contact with No / Unsure 07/15/2020 9:33 PM ENERGY AND CONSERVATION TECHNICIAN someone who was confirmed or suspected to have Coronavirus / COVID-19? documented as of this encounter Last Filed Vital Signs Vital Sign Reading Time Taken Comments Blood Pressure 116/89 07/15/2020 9:31 PM ENERGY AND CONSERVATION TECHNICIAN Pulse 73 07/15/2020 9:31 PM ENERGY AND CONSERVATION TECHNICIAN Temperature 37 C (98.6 F) 07/15/2020 9:18 PM ENERGY AND CONSERVATION TECHNICIAN Respiratory Rate 16 07/15/2020 9:31 PM ENERGY AND CONSERVATION TECHNICIAN Oxygen Saturation 97% 07/15/2020 9:31 PM ENERGY AND CONSERVATION TECHNICIAN Inhaled Oxygen Concentration - - Weight 61.2 kg (134 lb 14.7 oz) 07/15/2020 9:18 PM ENERGY AND CONSERVATION TECHNICIAN Height 157.5 cm (5' 2") 07/15/2020 9:18 PM ENERGY AND CONSERVATION TECHNICIAN Body Mass Index 24.68 07/15/2020 9:18 PM ENERGY AND CONSERVATION TECHNICIAN documented in this encounter Discharge Instructions Armani Ayon MD - 07/15/2020 DIAGNOSIS Diagnoses that have been ruled out: None Diagnoses that are still under consideration: None Final diagnoses: Inadequate pain control NO LIFE-THREATENING FINDINGS ON TODAY'S EXAM. PROCEDURES IN THE ER TODAY: No orders of the defined types were placed in this encounter. MEDICATIONS ADMINISTERED IN THE ER TODAY AND DISCHARGE MEDICATIONS: Orders Placed This Encounter Medications DISCONTD: FENTanyl PF (SUBLIMAZE (PF)) injection 50 mcg FENTanyl PF (SUBLIMAZE (PF)) injection 50 mcg FOLLOW-UP RECOMMENDATIONS: RECOMMEND FOLLOW-UP WITH YOUR PRIMARY CARE PROVIDER OR WITH DR TUCKER ORTHOPEDIC CT SCAN TECHNICIAN IN AM ESPECIALLY IF NO IMPROVEMENT IN SYMPTOMS. RETURN TO ER FOR WORSENING OF SYMPTOMS SUCH NUMBNESS, WORSENING PAIN, WORSENING DISCOLORATION, DECREASED PULSES documented in this encounter ED Notes Jenna Lara RN - 07/15/2020 9:21 PM CSTPatient presents as an alert and oriented female that broke her left ankle last and is scheduled for surgery Sunday. Patient states that the pain has become unbearable and her Tylenol 3 she istaking does nothing for the pain. Patient has bruising from the toes to just below the knee cap of the left leg. PMS intact distal from injured area. GY AND CONSERVATION TECHNICIAN Armani Wood MD - 07/15/2020 9:13 PM CST [facility] Emergency Department Note Patient Name: Janine Colin Date of : 1965 55 year old female Treatment Room: TX2/TX2 Primary Care Physician: José Miguel Sandoval Patient Escorted by: Self [9] Mode of Arrival: Personal means [1] EMS Treatment Prior to ED Arrival: Travel and Exposure Screening: Symptoms Does patient have any of these symptoms?: (not recorded) Exposure Screening Has patient had contact with someone with a communicable disease in the last month?: (not recorded) Diseases exposed to:: (not recorded) Is Patient ?: (not recorded) Exposure Date: (not recorded) Chief Complaint: Chief Complaint Patient presents with Ankle Pain S/P ankle Fx. History of Present Illness: Janine Colin is a 55 year old female who sustained a trimalleolar fx of left ankle and scheduledfor surgery coming Sunday July 19, 2020 presents to the ED for inadequate pain control. Pt reports that she is currently prescribed Tylenol # 3, but that does not alleviate her pain. Denies any new trauma or injury. No new discoloration, swelling, numbness Past Medical History/Immunizations: Past Medical History: Diagnosis Date Ankylosing spondylitis Anxiety 2013 Bipolar 1 disorder 2013 Depression 1980 Fibromyalgia 1999 Tetanus received in last 5 years: Unknown Allergies: Allergies Allergen Reactions Quetiapine Unknown - See comments Goes into liver failure Seroquel [Quetiapine Fumarate] Other - See comments Liver failure Past Social History: Tobacco Use Current Every Day Smoker; Started 1989; Smoked: Cigarettes. Smokeless Tobacco: Never used smokeless tobacco. Alcohol Use Never. Frequency of alcohol consumption: Never Frequency of binge drinking: Never Past Surgical History: Past Surgical History: Procedure Laterality Date SECTION 1992 HYSTEROSCOPY,UTERUS,UNL PROC 1994 REPAIR ROTATOR CUFF,ACUTE Right 2012 SPINAL FUSION,ANT,EA ADNL LEVEL Upper Review of Systems: Review of Systems Constitutional: Negative. HENT: Negative. Eyes: Negative. Respiratory: Negative. Breasts: Negative. Cardiovascular: Negative. Gastrointestinal: Negative. Genitourinary: Negative. Musculoskeletal: Positive for arthralgias, gait problem, joint swelling and myalgias. Negative for back pain. Skin: Positive for color change. Psychiatric/Behavioral: Negative. Endocrine: Endocrine negative Physical Exam: ED Triage Vitals Weight 07/15/202117 61.2 kg (134 lb 14.7 oz) Actual or estimated 07/15/202117 Actual Height 07/15/202117 1.575 m (5' 2") BP 07/15/202130 116/89 Pulse 07/15/202117 93 Resp 07/15/202117 22 Temp 07/15/202117 37 C (98.6 F) Temp [facility] -- SpO2 07/15/202117 97 % Measured on 07/15/202117 Room air Physical Exam Vitals signs and nursing note reviewed. Constitutional: General: She is not in acute distress. Appearance: Normal appearance. She is well-developed and normal weight. She is not ill-appearing,toxic-appearing or diaphoretic. HENT: Head: Normocephalic and atraumatic. Eyes: General: No scleral icterus. Right eye: No discharge. Left eye: No discharge. Conjunctiva/sclera: Conjunctivae normal. Pupils: Pupils are equal, round, and reactive to light. Neck: Musculoskeletal: Normal range of motion and neck supple. No neck rigidity. Thyroid: No thyromegaly. Cardiovascular: Rate and Rhythm: Normal rate and regular rhythm. Pulses: Normal pulses. Heart sounds: Normal heart sounds. No murmur. Pulmonary: Effort: Pulmonary effort is normal. No respiratory distress. Breath sounds: Normal breath sounds. No stridor. No wheezing or rales. Chest: Chest wall: No tenderness. Abdominal: General: Bowel sounds are normal. There is no distension. Palpations: Abdomen is soft. There is no mass. Tenderness: There is no abdominal tenderness. There is no right CVA tenderness, left CVA tenderness, guarding or rebound. Hernia: No hernia is present. Musculoskeletal: Normal range of motion. General: Swelling, tenderness and signs of injury present. No deformity. Right lower leg: No edema. Left lower leg: Edema present. Comments: No signs or symptoms concerning for a Compartment Syndrome at this time Lymphadenopathy: Cervical: No cervical adenopathy. Skin: General: Skin is warm and dry. Capillary Refill: Capillary refill takes less than 2 seconds. Coloration: Skin is not jaundiced or pale. Findings: Bruising present. No erythema, lesion or rash. Neurological: General: No focal deficit present. Mental Status: She is alert and oriented to person, place, and time. Cranial Nerves: No cranial nerve deficit. Sensory: No sensory deficit. Motor: No weakness or abnormal muscle tone. Coordination: Coordination normal. Gait: Gait normal. Deep Tendon Reflexes: Reflexes normal. Psychiatric: Behavior: Behavior normal. Thought Content: Thought content normal. Judgment: Judgment normal. Radiology: No results found for this visit on 07/15/20. Lab Results (24h): No results found for this or any previous visit (from the past 24 hour(s)). Orders and Treatments: No orders of the defined types were placed in this encounter. Orders Placed This Encounter Medications DISCONTD: FENTanyl PF (SUBLIMAZE (PF)) injection 50 mcg FENTanyl PF (SUBLIMAZE (PF)) injection 50 mcg ED COURSE MDM: Coding Scoring Tools: No S/Sxs concerning for compartment syndrome this visit No data recorded Diagnosis/Impression: ICD-10-CM ICD-9-CM 1. Inadequate pain control R52 780.96 Disposition/Condition: ED Disposition ED Disposition Condition Comment Disch - Home Stable Discharge Medications: Patient's Medications START taking these medications No medications on file CONTINUE taking these medications which have NOT CHANGED ACETAMINOPHEN-CODEINE (TYLENOL-CODEINE #3) 300-30 MG TABLET Take 1 tablet by mouth every 4 (four) hours as needed for Pain (scale 4-6) or Pain (scale 7-10). Indications: acute pain ALPRAZOLAM 2 MG TABLET Take 2 mg by mouth 3 (three) times daily as needed for Anxiety. ATORVASTATIN 40 MG TABLET Take 40 mg by mouth at bedtime. GOUEIIKOSW-UTXEJGHFMHLTJ-YYVO 50-325-40 MG TABLET Take 1 tablet by mouth 2 (two) times daily. FLUOXETINE 40 MG CAPSULE Take 40 mg by mouth 2 (two) times daily. FUROSEMIDE 20 MG TABLET TAKE ONE TABLET BY MOUTH TWICE A DAY LURASIDONE (LATUDA) 40 MG TABLET Take 40 mg by mouth daily. LURASIDONE (LATUDA) 60 MG TAB Take 60 mg by mouth daily. METHOCARBAMOL 500 MG TABLET Take 750 mg by mouth 2 (two) times daily. NAPROXEN (NAPROSYN) 500 MG TABLET Take 1 tablet by mouth 2 (two) times daily with meals. OMEGA-3 FATTY ACIDS CAPSULE Take 1 capsule by mouth. SUMATRIPTAN 100 MG TABLET Take 100 mg by mouth as needed for Migraine. TOPIRAMATE 100 MG TABLET Take 100 mg by mouth 2 (two) times daily. START taking Modified Medications as Prescribed No medications on file STOP taking these medications No medications on file Follow-up: Contact information for follow-up José Miguel Sandoval Specialty: FM-FAMILY MEDICINE Relationship: PCP - General [address] [address] Electronically signed by: Armani Wood MD 07/15/2020 9:51 PM GY AND CONSERVATION TECHNICIAN documented in this encounter Miscellaneous Notes ED Nurse Note - Moira Preston, RN - 07/15/2020 10:19 PM CSTPt given printed and verbal discharge instructions regarding inadequate pain control, encouraged hydration, Prescriptions provided for [place]. Discussed [place] side affects and to avoid driving/operating machinery/or engaging in activities requiring alertness while taking. Pt verbalized understanding of instructions, pt awake alert oriented, resp reg unlabored, skin w/d, color appropriate for race, moves all ext well,pt encouraged to follow up with ortho as scheduled on Sunday. Advised to seek medical attention for new/prolonged/worsening of symptoms, Symptoms were addressed. No adverse reaction to meds given in ER noted upon discharge Awake, alert oriented, resp reg unlabored, skin w/d, pt leaving via wheelchair, in no apparent distress, GY AND CONSERVATION TECHNICIAN documented in this encounter Plan of Treatment Date Type Specialty Care Team Description 07/16/2020 Laboratory Only Clinical Medical Calvin Tucker MD [address] [place] [address] [phone] Laboratory Only, Adc Test 07/19/2020 Hospital Encounter Surgery Calvin Tucker, Yolie sed bimalleolar MD fracture of left [address], [place] [address] 07/19/2020 Anesthesia Event Surgery Rito Reynaga C [address] [phone] 07/19/2020 Surgery Surgery Calvin Tucker, ANKLE LIT F [address] [place] [place] [address] Health Maintenance Due Date Last Done Comments [...] 04/19/2018, 10/15/2015 documented as of this encounter Procedures Procedure Name Priority Date/Time Associated Diagnosis Comme nts NOTICE OF PRIVACY Routine 07/15/2020 9:14 PM ENERGY AND CONSERVATION TECHNICIAN PRACTICES documented in this encounter Results Not on filedocumented in this encounter Visit Diagnoses Diagnosis Closed bimalleolar fracture of left ankl e, initial encounter - Primary Inadequate pain control - Primary Generalized pain Closed bimalleolar fracture of left ankl e, initial encounter documented in this encounter Administered Medications Medication Order MAR Action Action Date Dose Rate Site FENTanyl PF (SUBLIMAZE Given 07/15/2020 9:39 PM 50 mcg Right Deltoid-IM (PF)) injection 50 mcg ENERGY AND CONSERVATION TECHNICIAN 50 mcg, Intramuscular, ONCE, 1 dose, Mandy 07/15/20 at 2245, STAT documented in this encounter Insurance Payer Benefit Plan / Subscriber ID Effective Dates Phone Addre ss Type Group [employer] [id number] 2018-Prese Medicare Adv spring nt HMO documented as of this encounter
--- OUTSIDE RECORDS SUMMARY | 2020-09-27 13:22 | XMS REPORT | Summary of Care ---
:1965 Author Organization [facility] - Health Address [address] [place] [address] Care Team Providers Name Role Phone Geoffrey Sandoval Primary Care Provider Encounter Details Date Type Department Care Team Description 07/15/2020 Orders Only [facility] Doctor Unassigned, No [address] [facility] [place] [address] [address] [place] [address] Allergies Active Allergy Reactions Severity Noted Date [...] Overview: Added automatically from request for nora chelly [id number] Venous insufficiency of both lower extremities 019 [...] with No / Unsure 07/13/2020 9:11 AM BLOOD BANK LABORATORY PROFESSIONAL someone who was confirmed or suspected to have Coronavirus / COVID-19? documented as of this encounter Last Filed Vital Signs Not on filedocumented in this encounter Plan of Treatment Date Type Specialty Care Team Description 07/16/2020 Laboratory Only Clinical Medical Calvin Tucker MD [address] [place] [address] Laboratory Only, Adc Test 07/19/2020 Hospital Encounter Surgery Calvin Tucker, Yolie sed bimalleolar MD fracture of left [address], [address] [place] [address] [phone] 07/19/2020 Anesthesia Event Surgery Rito Reynaga C [address] [phone] 07/19/2020 Surgery Surgery Calvin Tucker, ANKLE LIT Akbar MD [address] [place] [address] [phone] Health Maintenance Due Date Last Done Comments [...] Name Priority Date/Time Associated Diagnosis Comme nts CONSENT/REFUSAL FOR Routine 07/15/2020 9:13 PM BLOOD BANK LABORATORY PROFESSIONAL DIAGNOSIS AND TREATMENT CONSENT/REFUSAL FOR Routine 07/15/2020 9:13 PM BLOOD BANK LABORATORY PROFESSIONAL DIAGNOSIS AND TREATMENT CONSENT/REFUSAL FOR Routine 07/15/2020 9:13 PM BLOOD BANK LABORATORY PROFESSIONAL DIAGNOSIS AND TREATMENT CONSENT/REFUSAL FOR Routine 07/15/2020 9:13 PM BLOOD BANK LABORATORY PROFESSIONAL DIAGNOSIS AND TREATMENT documented in this encounter Results Not on filedocumented in this encounter Insurance Payer Benefit Plan / Subscriber ID Effective Dates Phone Addre ss Type Group ensembli [id number] 2018-Prese Medicare Adv spring HMO documented as of this encounter
--- OUTSIDE RECORDS SUMMARY | 2020-09-27 13:22 | XMS REPORT | Summary of Care ---
:1965 Author Organization [facility] - [facility] Address [address] [place] [address] Care Team Providers Name Role Phone Geoffrey Sandoval Primary Care Provider Reason for Visit Reason Comments Referral/consult Orders Encounter Details Date Type Department Care Team Description 07/14/2020 Telephone [facility] Orthopaedic Mejia Stack R eferral/consult; Surgery- [place] PAC Orders [address] [place], [address] [place] [address] [place] [phone] Allergies Active Allergy Reactions Severity Noted Date [...] of 07/14/2020) Active Problems Problem Noted Date Closed bimalleolar fracture of left ankle, initial enc ounter 07/14/2020 Overview: Added automatically from request for nora chelly [id number] Venous insufficiency of both lower extremities 019 [...] with No / Unsure 07/13/2020 9:11 AM FINISHER 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 documented as of this encounter Last Filed Vital Signs Not on filedocumented in this encounter Miscellaneous Notes Telephone Encounter - BrunaDenita melo Gia - 07/14/2020 2:50 PM CSTI resent the referral that was sent to Dr. Patrick to Dr. Baez's office. They will call her to schedule. Thank you. elephone Encounter - Sharmin Epps - 07/14/2020 10:50 AM CSTCargaby Suleiman Colin is a 55 year old female Patient is calling stating that Front Office Administrator who she was referred to by provider is not in network. She states she spoke with insurance and the listed provider's are in network with insurance. Patient states she needs referral to be done today if possible because surgery Is Sunday. Please contact at [phone] (home) [address] Saleam, [place] All provider's located at [address] [place] [address] in [place] documented in this encounter Plan of Treatment Date Type Specialty Care Team Description 07/16/2020 Laboratory Only Clinical Medical Calvin Tucker MD [address] [place] [address] [place] [address] Laboratory Only, Adc Test 07/19/2020 Hospital Encounter Surgery Calvin Tucker Closed bimalleolar MD Gia fracture of left [address] [facility], [place] [address] 07/19/2020 Surgery Surgery Calvin Tucker ANKLE ORIF MD Gia [address] [place] [address] [place] [address] Health Maintenance Due Date Last Done Comments [...] Effective Dates Phone Addre ss Type Group [employer] [id number] 2018-Prese Medicare Adv spring nt HMO documented as of this encounter
--- OUTSIDE RECORDS SUMMARY | 2020-09-27 13:22 | XMS REPORT | Summary of Care ---
:1965 Author Organization [facility] Address [address] [place] [address] Care Team Providers Name Role Phone Geoffrey Sandoval Primary Care Provider Reason for Visit Reason Comments Surgery Clearance Encounter Details Date Type Department Care Team Description 07/15/2020 Telephone [facility] Orthopaedic Boyd Stack, PAC Surgery Clearance Surgery- [place] 2327 [facility] 2327 [facility], [facility] [place] [phone] Allergies Active Allergy Reactions Severity Noted Date Comments Quetiapine Unknown - See comments 10/05/2016 Goes into liver failure Quetiapine Fumarate Other - See comments 01/26/2018 Liver failure documented as of this encounter (statuses as of 07/16/2020) Medications Medication Sig Dispensed Refills Start Date [...] as of this encounter (statuses as of 07/16/2020) Active Problems Problem Noted Date Closed bimalleolar fracture of left ankle, initial enc ounter 07/14/2020 Overview: Added automatically from request for nora spaulding [id number] Venous insufficiency of both lower extremities 019 Fibromyalgia 07/01/2019 documented as of this encounter (statuses as of 07/16/2020) Social History Tobacco Use Types Packs/Day Years [...] with No / Unsure 07/15/2020 9:33 PM ENGINE DYNAMOMETER TESTER someone who was confirmed or suspected to have Coronavirus / COVID-19? documented as of this encounter Last Filed Vital Signs Not on filedocumented in this encounter Miscellaneous Notes Telephone Encounter - Arlin Darby - 07/16/2020 8:56 AM CSTCalled to speak to the patient regarding the providers response. I wasn't able to speak to her but left her a message informing her that the surgery has been rescheduled to 07/26/2020. Arlinromeo Darby 07/16/2020 8:58 AM elephone Encounter - Mejia Stack, PAC - 07/15/2020 4:08 PM CSTThat is less than optimal but we can do it elephone Encounter - Denita Felipe - 07/15/2020 12:09 PM CST Patient is scheduled for surgery on 07/19/2020 and we are requesting her to get a cardiac clearance.She can not get in to see a clinical pathologist until 07/19/2020. Would it be ok to push her surgery to 07/26/2020? X-rays reviewed from [facility] dated 07/08/2020 there is an oblique fracture [...] cardiac clearance. We'll schedule her for Sunday NE DYNAMOMETER TESTER documented in this encounter Plan of Treatment Date Type Specialty Care Team Description 07/15/2020 Anesthesia Event Surgery Rito Reynaga C [address] [address] 07/16/2020 Laboratory Only Clinical Medical Calvin Tucker MD [address] [place] [phone] Laboratory Only, Adc Test 07/19/2020 Hospital Encounter Surgery Calvin Tucker, Yolie sed bimalleolar MD fracture of left [address], [place] [address] Health Maintenance Due Date Last Done Comments [...] Effective Dates Phone Addre ss Type Group [employer] by [employer] [id number] 2018-Prese Medicare Adv spring nt HMO documented as of this encounter
--- OUTSIDE RECORDS SUMMARY | 2020-09-27 13:23 | XMS REPORT | Summary of Care ---
:[address] [facility] - [facility] Address [address] [place] [address] Care Team Providers Name Role Phone Geoffrey Sandoval Primary Care Provider Reason for Visit Reason Comments Refill Request Encounter Details Date Type Department Care Team Description 07/16/2020 Telephone [facility] Orthopaedic Boyd Stack, PAC Refill Request Surgery- [place] [address]327 [facility], [place] [address] [place] [phone] [phone] Allergies Active Allergy Reactions Severity Noted Date [...] Added automatically from request for nora longy [id number] Venous insufficiency of both lower extremities 019 [...] with No / Unsure 07/15/2020 9:33 PM SCHOOL CAFETERIA COOK HEAD someone who was confirmed or suspected to have Coronavirus / COVID-19? documented as of this encounter Last Filed Vital Signs Not on filedocumented in this encounter Miscellaneous Notes Telephone Encounter - Criss Mistry RN - 07/16/2020 4:34 PM CSTPatient having pain from bilateral ankle injury DOI 07.08.20. OLGA 07.13.20. Surgery scheduled for 07.26.20. She was prescribed Tylenol 3 on 07.13.20 qty of 40 by Mejia. Because she had a second ER visit for same event and new narcotic prescription the pharmacy refused fill and the ER advised they will not see her again due to her "pain seeking behavior" per the patient. Patient admits that she has been taking 2 Tylenol 3 every 4 hours and ibuprofen 800 mg every 6 hoursbut it is not helping with the pain. She is elevating bilateral ankle on "5 pillows" and is gettingno relief. Advised patient that unfortunately we will not be able to send another prescription due to narcotic prescribing regulations. She was very upset but verbalized understanding. She will continue to elevate and ice injuries, will try to get back to the correct dosing frequency for the Tylenol 3 that was sent in by Shirlene RAMIREZ. She is scheduled to see her psych nurse on 07.19.20, has been advised that he already has her clearance letter. I suggested that she call the office as soon as she has her clearance to see if she canhave her surgery sooner than 07.26.2020. Message routed to provider for review. elephone Encounter - Jolly Forbes - 07/16/2020 10:21 AM CSTPT was seen in the ER for pain on 07/15/20. She was given Hydrocodone for pain but was only given enough until 07/19/20. PT is wanting to know if she can get something to get her through until her surgery on 07/26/20? documented in this encounter Plan of Treatment Date Type Specialty Care Team Description 07/26/2020 Hospital Encounter Surgery Mina Tucker MD Closed bimalleolar [address] fracture of left ankle, [place] [phone] 07/26/2020 Anesthesia Event Surgery Rito Reynaga C [address] [phone] 07/26/2020 Surgery Surgery Calvin Tucker MD ANKLE ORIF [address] [place] [address] Health Maintenance Due Date Last [...] Effective Dates Phone Addre ss Type Group [employer] [id number] 2018-Prese Medicare Adv spring HMO documented as of this encounter
--- OUTSIDE RECORDS SUMMARY | 2020-09-27 13:23 | XMS REPORT | Summary of Care ---
:1965 Author Organization [facility] - [facility] Address [address] [place] [address] Care Team Providers Name Role Phone Geoffrey Sandoval Primary Care Provider Reason for Visit Reason Comments Refill Request Encounter Details Date Type Department Care Team Description 07/16/2020 Telephone [facility] Orthopaedic Boyd Stack, PAC Refill Request Surgery- [place] [address] [place] [address] [facility], [place] [address] [place], [place] [phone] [address] [phone] Allergies Active Allergy Reactions Severity Noted Date Comments Quetiapine Unknown - See comments 10/05/2016 Goes into liver failure Quetiapine Fumarate Other - See comments 01/26/2018 Liver failure documented as of this encounter (statuses as of 07/19/2020) Medications Medication Sig Dispensed Refills Start Date [...] as of this encounter (statuses as of 07/19/2020) Active Problems Problem Noted Date Closed bimalleolar fracture of left ankle, initial enc ounter 07/14/2020 Overview: Added automatically from request for nora chelly [id number] Venous insufficiency of both lower extremities 019 Fibromyalgia 07/01/2019 documented as of this encounter (statuses as of 07/19/2020) Social History Tobacco Use Types Packs/Day Years [...] with No / Unsure 07/15/2020 9:33 PM SOAKER HIDES someone who was confirmed or suspected to have Coronavirus / COVID-19? documented as of this encounter Last Filed Vital Signs Not on filedocumented in this encounter Miscellaneous Notes Telephone Encounter - Mejia Stack PAC - 07/19/2020 3:00 PM CSTcan we do her Wendsday? ER HIDES Telephone Encounter - Criss Mistry RN - [...] RAMIREZ. She is scheduled to see her slide forming machine tender on 07.19.20, has been advised that he [...] Treatment Date Type Specialty Care Team Description 07/20/2020 Office Visit Orthopedic Surgery Mejia Stack, PAC [address] [phone] 07/21/2020 Appointment Radiology Calvin Tucker MD [address] [place] [address] 07/21/2020 Disaster Recovery Coordinator Visit Phlebotomy Calvin Tucker MD [address] [place] [address] Pob, Adc Lab Main 07/21/2020 Laboratory Only Clinical Medical Only, Adc Test Laboratory 07/26/2020 Hospital Encounter Surgery Calvin Tucker, Yolie sed bimalleolar fracture of left [address] [place] [address], [place] [address] [phone] 07/26/2020 Anesthesia Event Surgery Rito Reynaga C [address] [phone] 07/26/2020 Surgery Surgery Calvin Tucker, ANKLE LIT F [address] [place] [address] Health Maintenance Due Date Last Done Comments [...] Effective Dates Phone Addre ss Type Group [employer] [id number] 2018-[facility] Medicare Adv spring nt HMO documented as of this encounter
--- OUTSIDE RECORDS SUMMARY | 2020-09-27 13:23 | XMS REPORT | Summary of Care ---
:1965 Author Organization [facility] - [facility] Address [address] [place] [address] Care Team Providers Name Role Phone Geoffrey Sandoval Primary Care Provider Encounter Details Date Type Department Care Team Description 07/14/2020 Letter (Out) [facility] Orthopaedic Calvin Tucker MD Surgery- [place] 2327 [facility] 2327 [facility], [facility] [place] [address] [place], [place] [phone] [phone] Allergies Active Allergy Reactions Severity Noted Date [...] Added automatically from request for nora chelly [id number] Venous insufficiency of both lower extremities 019 [...] with No / Unsure 07/15/2020 9:33 PM VETERINARY RADIOLOGIST someone who was confirmed or suspected to have Coronavirus / COVID-19? documented as of this encounter Last Filed Vital Signs Not on filedocumented in this encounter Plan of Treatment Date Type Specialty Care Team Description 07/16/2020 Laboratory Only Clinical Medical Calvin Tucker MD [address] [place] [address] Laboratory Only, Adc Test 07/26/2020 Hospital Encounter Surgery Calvin Tucker, Yolie sed bimalleolar fracture of left [address], [place] [address] 07/26/2020 Anesthesia Event Surgery Rito Reynaga, Princess [address] [phone] 07/26/2020 Surgery Surgery Calvin Tucker, ANKLE LIT F [address] [place] [place] [address] Health Maintenance Due Date Last [...] Effective Dates Phone Addre ss Type Group [employer] [id number] 2018-Prese Medicare Adv spring nt HMO documented as of this encounter
--- OUTSIDE RECORDS SUMMARY | 2020-09-27 13:24 | XMS REPORT | Summary of Care ---
:1965 Author Organization [facility] - [facility] Address [address] [place] [address] Care Team Providers Name Role Phone Geoffrey Sandoval Primary Care Provider Encounter Details Date Type Department Care Team Description 07/10/2020 Orders Only [facility] Doctor Unassigned, No [address] [facility] [place] [address] [address] [place] [address] Allergies Active Allergy Reactions Severity Noted Date Comments Quetiapine Unknown - See comments 10/05/2016 Goes into liver failure Quetiapine Fumarate Other - See comments 01/26/2018 Liver failure documented as of this encounter (statuses as of 07/20/2020) Medications Medication Sig Dispensed Refills Start Date [...] as of this encounter (statuses as of 07/20/2020) Active Problems Problem Noted Date Closed bimalleolar fracture of left ankle, initial enc ounter 07/14/2020 Overview: Added automatically from request for nora spaulding [id number] Venous insufficiency of both lower extremities 019 Fibromyalgia 07/01/2019 documented as of this encounter (statuses as of 07/20/2020) Social History Tobacco Use Types Packs/Day Years Used Date Current Every Day Smoker Cigarettes Sta rted: 1991 Sex Assigned at Date Recorded Not on file COVID-19 Exposure Response Date Recorded In the last month, have you been in contact with No / Unsure 07/15/2020 9:33 PM COLORER someone who was confirmed or suspected to have Coronavirus / COVID-19? documented as of this encounter Last Filed Vital Signs Not on filedocumented in this encounter Plan of Treatment Date Type Specialty Care Team Description 07/20/2020 Office Visit Orthopedic Surgery Mejia Stack, PAC [address] [place] [address] 07/21/2020 Appointment Radiology Calvin Tucker MD [address] [place] [address] 07/21/2020 Shirrer Visit Phlebotomy Calvin Tucker MD [address] [place] [address] Pob, Adc Lab Main 07/21/2020 Laboratory Only Clinical Medical Only, Adc Test Laboratory 07/26/2020 Hospital Encounter Surgery Calvin Tucker, Yolie sed bimalleolar MD fracture of left [address], [place] [address] 07/26/2020 Anesthesia Event Surgery Rito Reynaga C [address] [phone] 07/26/2020 Surgery Surgery Calvin Tucker, ANKLE LIT Akbar MD [address] [place] [phone] Health Maintenance Due Date Last Done Comments [...] Name Priority Date/Time Associated Diagnosis Comme nts INSURANCE CORRESPONDENCE Routine 07/10/2020 12:01 AM COLORER documented in this encounter Results Not on filedocumented in this encounter Insurance Payer Benefit Plan / Subscriber ID Effective Dates Phone Addre ss Type Group [employer] [id number] 2018-Prese Medicare Adv spring nt HMO documented as of this encounter
--- OUTSIDE RECORDS SUMMARY | 2020-09-27 13:24 | XMS REPORT | Summary of Care ---
:1965 Author Organization [facility] Address [address] [place] [address] Care Team Providers Name Role Phone Jaime Geoffrey Primary Care Provider Reason for Visit Reason Comments Assessment pain in ankle Appointment Sunday Encounter Details Date Type Department Care Team Description 07/17/2020 Telephone [facility] Orthopaedic Calvin Tucker sseeva (pain in Surgery- Tyrell Nielsen MD ankle); Appointment [address] [place], [address] (Sunday ) [place] [address] [place] [address] [place], [place] [phone] [phone] Allergies Active Allergy Reactions Severity Noted Date [...] Added automatically from request for nora chelly [id number] Venous insufficiency of both lower extremities 019 [...] with No / Unsure 07/15/2020 9:33 PM 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 documented as of this encounter Last Filed Vital Signs Not on filedocumented in this encounter Miscellaneous Notes Telephone Encounter - Arlin Darby - 07/19/2020 3:40 PM CSTPatient scheduled an appointment with Mejia Stack on 07/20/2020 to discuss surgery and pain control. Arlin Darby 07/19/2020 3:40 PM elephone Encounter - Mejia Stack PAC - 07/19/2020 2:39 PM CSTThere will be no further narcotics from this office. elephone Encounter - Arlin Darby - 07/19/2020 10:08 AM CST She was seen on 07/13 for right ankle sprain and left ankle fracture. Scheduled for surgery today but needed a CC, now she is scheduled for 07/26. She was prescribed T3 on 07/13 # 40. Then she went to the ER on 07/15 for inadequate pain control. Note in ER chart following office visit: Date of Service: 07/15/2020 10:25 PM Creation Time: 07/16/2020 2:27 PM 07/16/20 @ 1427. Preston called to verify prescription for Blaine. Patient has had multiple narcotic prescriptions filled with different providers and pharmacies over the past [address] Singer Johnston was advised not to fill the prescription for concerns of diversion or abuse. Arlin Darby 07/19/2020 10:16 AM elephone Encounter - Priti Fitzgerald - 07/17/2020 9:43 PM CSTCargaby Colin is a 55 year old female is stating she has two broken ankles and is having inadequate pain control. Patient requesting an appointment for Sunday. documented in this encounter Plan of Treatment Date Type Specialty Care Team Description 07/20/2020 Office Visit Orthopedic Surgery Mejia Stack PAC [address] [place] [address] 07/21/2020 Appointment Radiology Calvin Tucker MD [address] [place] [address] 07/21/2020 Wind Turbine Installer Visit Phlebotomy Calvin Tucker MD [address] [place] [address] [place] [address] Pob, Adc Lab Main 07/21/2020 Laboratory Only Clinical Medical Only, Adc Test Laboratory 07/26/2020 Hospital Encounter Surgery Calvin Tucker, Yolie sed bimalleolar fracture of left [address] [place] [address], [place] [address] 07/26/2020 Anesthesia Event Surgery Rito Reynaga C [address] [phone] 07/26/2020 Surgery Surgery Calvin Tucker, ANKLE LIT F [address] [place] [address] Health Maintenance Due Date Last Done Comments [...] Effective Dates Phone Addre ss Type Group [employer] [id number] 2018-[facility] Medicare Adv spring nt HMO documented as of this encounter
--- OUTSIDE RECORDS SUMMARY | 2020-09-27 13:24 | XMS REPORT | Summary of Care ---
:1965 Author Organization [facility] - [facility] Address [address] [place] [address] Care Team Providers Name Role Phone Geoffrey Sandoval Primary Care Provider Reason for Visit Reason Comments Refill Request Encounter Details Date Type Department Care Team Description 07/16/2020 Telephone [facility] Orthopaedic Boyd Stack, PAC Refill Request Surgery- [place] [address] [address] [facility], [place] [address] [place], [place] [phone] [address] [phone] Allergies Active Allergy Reactions Severity Noted Date [...] Added automatically from request for nora chelly [id number] Venous insufficiency of both lower extremities 019 [...] with No / Unsure 07/15/2020 9:33 PM NURSING HOME MANAGER someone who was confirmed or suspected to have Coronavirus / COVID-19? documented as of this encounter Last Filed Vital Signs Not on filedocumented in this encounter Miscellaneous Notes Telephone Encounter - Arlin Darby - 07/19/2020 4:16 PM CSTInsurance is not accepted at the other facility. Arlin Darby 07/19/2020 4:16 PM elephone Encounter - Mejia Stack PAC - 07/19/2020 3:00 PM CSTcan we do her Wendsday? elephone Encounter - Criss Mistry RN - 07/16/2020 [...] RAMIREZ. She is scheduled to see her power bender operator on 07.19.20, has been advised that he [...] Orthopedic Surgery Mejia Stack, PAC [address] [place] [address] 07/21/2020 Appointment Radiology Calvin Tucker MD [address] [place] [address] 07/21/2020 Field Traffic Investigator Visit Phlebotomy Calvin Tucker MD [address] [place] [address] Pob, Adc Lab Main 07/21/2020 Laboratory Only Clinical Medical Only, Adc Test Laboratory 07/26/2020 Hospital Encounter Surgery Calvin Tucker, Yolie sed bimalleolar MD fracture of left [address], [place] [address] 07/26/2020 Anesthesia Event Surgery Rito Reynaga C [address] [address] 07/26/2020 Surgery Surgery Calvin Tucker, ANKLE LIT F [address] [place] [address] Health Maintenance Due Date Last Done Comments [...] Effective Dates Phone Addre ss Type Group [employer] [id number] 2018-Prese Medicare Adv spring HMO documented as of this encounter
--- OUTSIDE RECORDS SUMMARY | 2020-09-27 13:25 | XMS REPORT | Summary of Care ---
:1965 Author Organization [facility] - [facility] Address [address] [place] [address] Care Team Providers Name Role Phone Jaime Geoffrey Primary Care Provider Reason for Referral Radiology Services (Routine) Status Reason Specialty Diagnoses / Referred By Referred To Procedures Contact Contact New Request Diagnostic Diagnoses Closed bimalleolar fracture of left ankle, initial encounter Mejia Stack, Radiology Procedures XR ANKLE <3 VW LEFT PAC [address] [place] [address] Reason for Visit Reason Comments Follow-up Encounter Details Date Type Department Care Team Description 07/20/2020 Office Visit [facility] Orthopaedic Mejia Stack C losed bimalleolar fracture of left ankle, initial encounter (Primary Dx); Surgery- [facility] Sprain of posterior talofibular ligament of right ankle, initial encounter [address], [address] [place] [address] [place] [address] [place], [place] [phone] [address] Allergies Active Allergy Reactions Severity Noted [...] Added automatically from request for nora spaulding [id number] Venous insufficiency of both lower extremities 019 [...] been in contact with No / Unsure 07/20/2020 1:55 PM RESIDENTIAL SALES MANAGER someone who was confirmed or suspected to have Coronavirus / COVID-19? documented as of this encounter Last Filed Vital Signs Vital Sign Reading Time Taken Comments Blood Pressure 101/69 07/20/2020 2:03 PM RESIDENTIAL SALES MANAGER Pulse 84 07/20/2020 2:03 PM RESIDENTIAL SALES MANAGER Temperature - - Respiratory Rate - - Oxygen Saturation - - Inhaled Oxygen Concentration - - Weight 59 kg (130 lb) 07/20/2020 2:03 PM RESIDENTIAL SALES MANAGER Height 157.5 cm (5' 2") 07/20/2020 2:03 PM RESIDENTIAL SALES MANAGER Body Mass Index 23.78 07/20/2020 2:03 PM RESIDENTIAL SALES MANAGER documented in this encounter Progress Notes Mejia Stack S, PAC - 07/20/2020 2:00 PM CST Cc: Chief Complaint Patient presents with Follow-up discuss surgery on 07/26/20 and pain medication after surgery. Patient did come using wheel chair, with cast boot intact. Nwb. Priscilla Gunter 07/20/2020 2:06 PM Janine Colin is a 55 year old female. Here for follow-up. Closed bimalleolar fracture of left ankle, initial encounter (S82.842A) And sprained right ankle We are 12 days from the date of injury today. She has been having difficulty with pain control and has gone to a different physicians for prescriptions for the last week. She was not able to have her ankle ORIF performed yet because she was waiting for cardiac clearance. The vascular insufficiency that she was experiencing previously was resolved with 20/30 compression stockings. 07/08/2020 she was seen in the emergency room a give her prescription for hydrocodone 05/29/25 she was prescribed 20 tablets with no refill. This was [facility] emergency room they considered admitting her to the hospital for pain control at that time. 07/09/2020 she returned there to [facility] emergency room after a rough night. They could not get IV access she has very difficult IV access it requires a central line and they could not provide that sothey discharged her. Seen here 07/13/2020 we prescribed her Tylenol 3 in our office visit which didn't relieve her pain she's got a past medical history of pain management she saw Dr. Norm Guajardo several years ago. For ankylosing spondylitis. She was seen at the emergency department of [facility] hydrocodone was prescribed again T 05/29/25 she took that to be filled at the pharmacy after review of the database and discussion with the emergency room physician the prescription was denied according to guidelines for opioids. Currently she is using Biofreeze CBD oil and the Tylenol with Codeine prescription that I provided her date of injury 07/08/2020 she had a [...] Prior to Visit Medication Sig Dispense Refill acetaminophen-codeine (TYLENOL-CODEINE #3) 300-30 mg tablet Take 1 tablet by mouth every 4 (four) hours as needed for Pain (scale 4-6) or Pain (scale 7-10). Indications: acute pain 40 tablet 0 furosemide 20 mg tablet TAKE ONE TABLET BY MOUTH TWICE A DAY omega-3 fatty acids capsule Take 1 capsule by mouth. naproxen (NAPROSYN) 500 mg tablet Take 1 tablet by mouth 2 (two) times daily with meals. 30 tablet 0 ALPRAZolam 2 mg tablet Take 2 mg by mouth 3 (three) times daily as needed for Anxiety. atorvastatin 40 mg tablet Take 40 mg by mouth at bedtime. alytwgetay-npcfjtddjfoai-jyaw 50-325-40 mg tablet Take 1 tablet by [...] mg by mouth 2 (two) times daily. No facility-administered medications prior to visit. Histories Past Medical History: Diagnosis Date Ankylosing spondylitis Anxiety 2013 Bipolar 1 disorder 2013 Depression 1981 Fibromyalgia 2000 Past Surgical History: Procedure Laterality Date SECTION [...] file Gets together: Not on file Attends yazidi service: Not on file Active member of [...] file Social History Narrative Not on file History reviewed. No pertinent family history. Review of Systems Constitutional: Negative. HENT: Negative. Eyes: Negative. Breasts: Negative. Cardiovascular: Negative. Gastrointestinal: Negative. Genitourinary: Negative. Musculoskeletal: Positive for gait problem and joint swelling. Skin: Negative. Psychiatric/Behavioral: Negative. Endocrine: Endocrine negative Vital Signs BP 101/69 | Pulse 84 | Ht 62" (157.5 cm) | Wt 59 kg (130 lb) | BMI 23.78 kg/m Physical Exam Musculoskeletal: Comments: Physical Exam [...] content normal. Nursing note and vitals reviewed. He has a splint on her She has a splint on her left ankle which is fractured and boot on her right ankle where her sprain is Assessment/Plan 1. Closed bimalleolar fracture of left ankle, initial encounter XR ANKLE <3 VW LEFT 2. Sprain of posterior talofibular ligament of right ankle, initial encounter Schedule her for open reduction internal fixation of the left ankle at [facility] for Sunday She will be able to get a one-time prescription of hydrocodone on discharge from the hospital She needs a central line access in order to have surgery. I have discussed the patient's physical exam [...] understanding and is agreeable to theplan. She now has cardiac clearance. I discussed the current status of her case with Dr. Tucker and he wants to proceed with the open reduction internal fixation Sunday. documented in this encounter Plan of Treatment Date Type Specialty Care Team Description 07/21/2020 Appointment Radiology Calvin Tucker MD [address] [place] [phone] 07/21/2020 District Manager Postal Service Visit Phlebotomy Calvin Tucker MD [address] [place] [address] [place] [address] Pob, Man Lab Main 07/21/2020 Laboratory Only Clinical Medical Only, Adc Test Laboratory 07/26/2020 Hospital Encounter Surgery Calvin Tucker, Yolie sed bimalleolar MD fracture of left [address] ankle, [place] [address] 07/26/2020 Anesthesia Event Surgery Rito Reynaga C [address] [phone] 07/26/2020 Surgery Surgery Calvin Tucker, ANKLE LIT F [address] [place] [address] [place] [address] Name Type Priority Associated Diagnoses Date/Ti me XR ANKLE <3 VW LEFT IMAGING Routine Closed bimalleolar 2:44 PM RESIDENTIAL SALES MANAGER fracture of left ankle, initial encounter Name Type Priority Associated Diagnoses Order S chedule XR ANKLE <3 VW LEFT IMAGING Routine Closed bimalleolar Ex pected: 07/20/2020, fracture of left ankle, Expi res: 07/20/2021 initial encounter Health Maintenance Due Date Last Done [...] left ankl e, initial encounter - Primary Closed bimalleolar fracture of left ankl e, initial encounter - Primary Sprain of posterior talofibular ligament of right ankle, initial encounter Closed bimalleolar fracture of left ankl e, initial encounter documented in this encounter
--- OUTSIDE RECORDS SUMMARY | 2020-09-27 13:25 | XMS REPORT | Summary of Care ---
:1965 Author Organization [facility] - [facility] Address [address] [place] [address] Care Team Providers Name Role Phone Sandoval Geoffrey Primary Care Provider Reason for Visit Radiology Services (Routine) Status Reason Specialty Diagnoses / Referred By Referred To Procedures Contact Contact New Request Diagnostic Diagnoses Closed bimalleolar fracture of left ankle, initial encounter Mejia Stack, Radiology Procedures XR ANKLE <3 VW LEFT PAC [address] [place] [address] Encounter Details Date Type Department Care Team Description 07/20/2020 Hospital Encounter [facility] Mejia Stack , [facility] Orthopedics - PAC Radiology [address] [place] [phone] Allergies Active Allergy Reactions Severity Noted Date Comments Quetiapine Unknown - See comments 10/05/2016 Goes into liver failure Quetiapine Fumarate Other - See comments 01/26/2018 Liver failure documented as of this encounter (statuses as of 07/21/2020) Medications Medication Sig Dispensed Refills Start Date End Date Status methocarbamol 500 mg Take 1,000 mg by 0 Active tablet mouth 2 [...] as of this encounter (statuses as of 07/21/2020) Active Problems Problem Noted Date Closed bimalleolar fracture of left ankle, initial enc ounter 07/14/2020 Overview: Added automatically from request for nora chelly [id number] Venous insufficiency of both lower extremities 019 Fibromyalgia 07/01/2019 documented as of this encounter (statuses as of 07/21/2020) Social History Tobacco Use Types Packs/Day Years [...] in contact with No / Unsure 07/20/2020 3:26 PM COLLEGE ATHLETIC DIRECTOR someone who was confirmed or suspected to have Coronavirus / COVID-19? documented as of this encounter Last Filed Vital Signs Not on filedocumented in this encounter Plan of Treatment Date Type Specialty Care Team Description 07/21/2020 Appointment Radiology Calvin Tucker MD [address] [place] [address] 07/21/2020 Consultant Nurse Visit Phlebotomy Calvin Tucker MD [address] [place] [address] Pob, Adc Lab Main 07/21/2020 Laboratory Only Clinical Medical Only, Adc Test Laboratory 07/26/2020 Hospital Encounter Surgery Calvin Tucker, Yolie sed bimalleolar MD fracture of left [address] ankle, [place] [address] 07/26/2020 Anesthesia Event Surgery Rito Reynaga C [address] [phone] 07/26/2020 Surgery Surgery Calvin Tucker, ANKLE LIT F [address] [place] [address] Name Type Priority Associated Diagnoses Date/Ti me XR ANKLE <3 VW LEFT IMAGING Routine Closed bimalleolar 2:44 PM COLLEGE ATHLETIC DIRECTOR fracture of left ankle, initial encounter Name Type Priority Associated Diagnoses Order S chedule XR ANKLE <3 VW LEFT IMAGING Routine Closed bimalleolar ON CE for 1 Occurrences fracture of left ankle, star ting 07/20/2020 initial encounter until 06/28 Health Maintenance Due Date Last Done Comments [...] fracture of left ankl e, initial encounter Closed bimalleolar fracture of left ankl e, initial encounter documented in this encounter
--- OUTSIDE RECORDS SUMMARY | 2020-09-27 13:25 | XMS REPORT | Summary of Care ---
:1965 Author Organization [facility] Address [address] [place] [address] Care Team Providers Name Role Phone Geoffrey Sandoval Primary Care Provider Reason for Visit Reason Comments Pre-Op Exam Encounter Details Date Type Department Care Team Description 07/21/2020 Laboratory Only [facility] Calvin Tucker MD [address] [place] [address] [place] [address] Exposure to Phlebotomy Only, Adc Test SARS-associated [facility] coronavirus (Primary [address] [facility] [address] [place] [address] Allergies Active Allergy Reactions Severity Noted Date [...] Added automatically from request for nora spaulding [id number] Venous insufficiency of both lower extremities 019 [...] with No / Unsure 07/20/2020 3:26 PM MANAGER [place] someone who was confirmed or suspected to have Coronavirus / COVID-19? documented as of this encounter Last Filed Vital Signs Not on filedocumented in this encounter Nursing Notes Elaine Forbes - 07/21/2020 10:45 AM CST Venipuncture collection performed by clean technique on the right anticubitus. Total of 2 attempts were made. Slight pressure and a bandage/dressing were applied to the site(s). The patient experiencedno complications. The following specimens were processed according to instructions and sent to [facility] laboratories per lab order on today: LT BLUE SST 1 RED LAV 1 PPT DK GREEN (LiHep) DK GREEN (SodH) ZAMORA DK BLUE (K2) DK BLUE (S) ACD Blood Culture NIPT/NTD Patient has been identified by and name and was provided with cup, antiseptic towelette, and clean catch instructions. 1 urine specimen(s) sent. Unpreserved 1 Urine Culture Aptima tube Other urine documented in this encounter Plan of Treatment Date Type Specialty Care Team Description 07/26/2020 Hospital Encounter Surgery Mina Tucker MD Closed bimalleolar [address] fracture of left ankle, [place] [address] [place] [address] 07/26/2020 Anesthesia Event Surgery Rito Reynaga C [address] [phone] 07/26/2020 Surgery Surgery Calvin Tucker MD ANKLE ORIF [address] [place] [address] [place] [address] Name Type Priority Associated Diagnoses Date/Ti me COVID-19 (ID NOW LAB Routine Exposure to 07/21/2020 11:30 AM MANAGER [place] RAPID TESTING) SARS-associated coronavirus Name Type Priority Associated Diagnoses Order S chedule COVID-19 (ID NOW LAB Routine Exposure to SARS-associa adrien Expected: 07/21/2020, RAPID TESTING) coronavirus Expires: 06/28 Health Maintenance Due Date Last Done [...] left ankl e, initial encounter - Primary Exposure to SARS-associated coronavirus - Primary Closed bimalleolar fracture of left ankl e, initial encounter documented in this encounter Insurance Payer Benefit Plan / Subscriber ID Effective Dates Phone Addre ss Type Group [employer]elly[employer] [id number] 2018-Prese Medicare Adv spring HMO documented as of this encounter
--- OUTSIDE RECORDS SUMMARY | 2020-09-27 13:25 | XMS REPORT | Summary of Care ---
:1965 Author Organization [facility] - [facility] Address [address] [place] [address] Care Team Providers Name Role Phone Jaime Geoffrey Primary Care Provider Reason for Referral Radiology Services (Routine) Status Reason Specialty Diagnoses / Referred By Referred To Procedures Contact Contact New Request Diagnostic Diagnoses Closed bimalleolar fracture of left ankle, initial encounter Mejia Stack, Radiology Procedures XR ANKLE <3 VW LEFT PAC [address] [place] [address] Reason for Visit Reason Comments Follow-up Encounter Details Date Type Department Care Team Description 07/20/2020 Office Visit [facility] Orthopaedic Mejia Stack C losed bimalleolar fracture of left ankle, initial encounter (Primary Dx); Surgery- [facility] Sprain of posterior talofibular ligament of right ankle, initial encounter [address], [address] [place] [address] [place] [address] [place], [place] [phone] Allergies Active Allergy Reactions Severity Noted [...] Added automatically from request for nora spaulding [id number] Venous insufficiency of both lower extremities 019 [...] with No / Unsure 07/20/2020 1:55 PM ROTARY CUTTER FEEDER someone who was confirmed or suspected to have Coronavirus / COVID-19? documented as of this encounter Last Filed Vital Signs Vital Sign Reading Time Taken Comments Blood Pressure 101/69 07/20/2020 2:03 PM ROTARY CUTTER FEEDER Pulse 84 07/20/2020 2:03 PM ROTARY CUTTER FEEDER Temperature - - Respiratory Rate - - Oxygen Saturation - - Inhaled Oxygen Concentration - - Weight 59 kg (130 lb) 07/20/2020 2:03 PM ROTARY CUTTER FEEDER Height 157.5 cm (5' 2") 07/20/2020 2:03 PM ROTARY CUTTER FEEDER Body Mass Index 23.78 07/20/2020 2:03 PM ROTARY CUTTER FEEDER documented in this encounter Progress Notes Mejia [...] 20 tablets with no refill. This was [facility] emergency room they considered admitting her to the hospital for pain control at that time. 07/09/2020 she returned there to [facility] emergency room after a rough night. [...] was seen at the emergency department of [facility] hydrocodone was prescribed again T 05/29/25 she [...] missing a step she was seen in [facility] x-rays were obtained she was diagnosed with [...] Take 40 mg by mouth at bedtime. rscjjghnjy-dgovittjcxgjj-usmt 50-325-40 mg tablet Take 1 tablet by [...] file Gets together: Not on file Attends yazdanism service: Not on file Active member of [...] internal fixation of the left ankle at [facility] for Sunday She will be able to [...] 07/21/2020 Appointment Radiology Calvin Tucker MD [address] [place] [phone] 07/21/2020 Parachute Taper Visit Phlebotomy Calvin Tucker MD [address] [place] [address] [place] [address] Pob, Man Lab Main 07/21/2020 Laboratory Only Clinical Medical Only, Adc Test Laboratory 07/26/2020 Hospital Encounter Surgery Calvin Tucker, Yolie sed bimalleolar MD fracture of left [address] ankle, [place] [address] 07/26/2020 Anesthesia Event Surgery Rito Reynaga C [address] [phone] 07/26/2020 Surgery Surgery Calvin Tucker, ANKLE LIT F [address] [place] [address] [place] [address] Name Type Priority Associated Diagnoses Date/Ti me XR ANKLE <3 VW LEFT IMAGING Routine Closed bimalleolar 2:44 PM ROTARY CUTTER FEEDER fracture of left ankle, initial encounter Name [...]
--- OUTSIDE RECORDS SUMMARY | 2020-09-27 13:25 | XMS REPORT | Summary of Care ---
:1965 Author Organization [facility] - Health Address [address] [place] [address] Care Team Providers Name Role Phone Geoffrey Sandoval Primary Care Provider Encounter Details Date Type Department Care Team Description 07/21/2020 Orders Only [facility] Doctor Unassigned, No [address] [facility] [place] [address] [address] [place] [address] Allergies Active Allergy Reactions Severity Noted Date [...] Take 1 tablet by 30 tablet 0 10/15/201 8 Active mg tablet mouth 2 (two) [...] Added automatically from request for nora spaulding [id number] Venous insufficiency of both lower extremities 019 [...] with No / Unsure 07/20/2020 3:26 PM BRIDGE CONSTRUCTION INSPECTOR someone who was confirmed or suspected to have Coronavirus / COVID-19? documented as of this encounter Last Filed Vital Signs Not on filedocumented in this encounter Plan of Treatment Date Type Specialty Care Team Description 07/26/2020 Hospital Encounter Surgery Mina Tucker MD Closed bimalleolar [address] fracture of left ankle, [address] [place] [phone] 07/26/2020 Anesthesia Event Surgery Rito Reynaga, Princess [address] [address] 07/26/2020 Surgery Surgery Calvin Tucker MD [facility] ORI [address] [place] [address] Health Maintenance Due Date Last [...] Associated Diagnosis Comme nts CONSENT/REFUSAL FOR Routine 07/21/2020 10:50 AM DIAGNOSIS AND TREATMENT BRIDGE CONSTRUCTION INSPECTOR ASSIGNMENT OF BENEFITS Routine 07/21/2020 10:49 AM BRIDGE CONSTRUCTION INSPECTOR documented in this encounter Results Not on filedocumented in this encounter Insurance Payer Benefit Plan / Subscriber ID Effective Dates Phone Addre ss Type Group Aniika [id number] 2018-Prese Medicare Adv spring [place] HMO documented as of this encounter
--- OUTSIDE RECORDS SUMMARY | 2020-09-27 13:26 | XMS REPORT | Summary of Care ---
:1965 Author Organization [facility] Address [address] [place] [address] Care Team Providers Name Role Phone Geoffrey Sandoval Primary Care Provider Reason for Visit Reason Comments Pre-Op Exam Encounter Details Date Type Department Care Team Description 07/21/2020 Credit Union Examiner Visit [facility] Calvin Tucker MD [address] [place] [address] [place] [address] Closed bimalleolar Professional Office Pob, Adc Lab Main fracture of left Building Phlebotomy ankle, i nitial Lab encounter Professional Office Building [address] [place] [address] , [address] [place] [address] Allergies Active Allergy Reactions Severity [...] Added automatically from request for nora chelly [id number] Venous insufficiency of both lower extremities 019 [...] with No / Unsure 07/20/2020 3:26 PM CLOTHES SEPARATOR someone who was confirmed or suspected to have Coronavirus / COVID-19? documented as of this encounter Last Filed Vital Signs Not on filedocumented in this encounter Plan of Treatment Date Type Specialty Care Team Description 07/26/2020 Hospital Encounter Surgery Mina Tucker MD Closed bimalleolar [address] fracture of left ankle, [place] [address] 07/26/2020 Anesthesia Event Surgery Rito Reynaga C [address] [place] [address] 07/26/2020 Surgery Surgery Calvin Tucker MD ANKLE ORIF [address] [place] [place] [address] Name Type Priority Associated Diagnoses Date/Ti me BASIC METABOLIC PANEL LAB Routine Closed bimalleolar 07/21/2020 11:25 AM (NA, K, CL, CO2, fracture of left ankle, CLOTHES SEPARATOR GLUCOSE, BUN, initial encounter CREATININE, CA) URINALYSIS LAB Routine Closed bimalleolar 0 11:30 AM fracture of left ankle, CLOTHES SEPARATOR initial encounter Health Maintenance Due Date Last [...] Name Priority Date/Time Associated Diagnosis Comme nts CBC WITH DIFF Routine 07/21/2020 11:25 AM Closed bimalleolar R esults for this CLOTHES SEPARATOR fracture of left procedure a re in ankle, initial the results encounter section. documented in this encounter Results CBC WITH DIFF (07/21/2020 11:25 AM CLOTHES SEPARATOR) [facility] nature WBC 8.45 4.30 - 11.10 [facility] 10*3/L [facility] RBC 4.37 3.93 - 5.25 [facility] 10*6/L [facility] HGB 14.0 11.6 - 15.0 [facility] g/dL [facility] HCT 41.9 35.7 - 45.2 % [facility] MCV 95.9 (H) 80.6 - 95.5 fL [facility] MCH 32.0 25.9 - 32.8 pg [facility] MCHC 33.4 31.6 - 35.1 [facility] g/dL [facility] RDW-SD 50.9 (H) 39.0 - 49.9 fL [facility] RDW-CV 14.3 12.0 - 15.5 % [facility] PLT 397 (H) 166 - 358 [facility] 10*3/L [facility] MPV 9.8 9.5 - 12.9 fL [facility] NRBC/100 WBC 0.0 0.0 - 10.0 /100 [facility] WBCs [facility] NRBC x10^3 <0.01 10*3/L [facility] GRAN MAT (NEUT) % 62.5 % [facility] IMM GRAN % 0.40 % [facility] LYMPH % 29.7 % [facility] MONO % 5.7 % [facility] EOS % 1.2 % [facility] BASO % 0.5 % [facility] GRAN MAT x10^3(ANC) 5.29 1.88 - 7.09 [facility] 10*3/uL [facility]OS[facility]ITAL [facility] IMM GRAN x10^3 0.03 0.00 - 0.06 [facility] 10*3/uL [facility] LYMPH x10^3 2.51 1.32 - 3.29 [facility] 10*3/uL [facility] MONO x10^3 0.48 0.33 - 0.92 [facility] 10*3/uL [facility]ITAL [facility] EOS x10^3 0.10 0.03 - 0.39 [facility] 10*3/uL [facility]ITAL [facility] BASO x10^3 0.04 0.01 - 0.07 [facility] 10*3/uL [facility] Specimen Blood Performing Organization Address City/State/Zipcode Phone Number [facility] CLIA: [id number] [place] [address] documented in this encounter Visit Diagnoses Diagnosis Closed bimalleolar fracture of left ankl e, initial encounter - Primary Closed bimalleolar fracture of left ankl e, initial encounter Closed bimalleolar fracture of left ankl e, initial encounter documented in this encounter Insurance Payer Benefit Plan / Subscriber ID Effective Dates Phone Addre ss Type Group [id number] [id number] 2018-[facility] Medicare [facility] spring HMO documented as of this encounter
--- OUTSIDE RECORDS SUMMARY | 2020-09-27 13:26 | XMS REPORT | Summary of Care ---
:1965 Author Organization [facility] Address [address] [place] [address] Care Team Providers Name Role Phone Sandoval Geoffrey Primary Care Provider Reason for Visit Reason Onset Date Comments POST-OP 07/27/2020 LEFT ankle fracture ORIF yesterday Encounter Details Date Type Department Care Team Description 07/27/2020 Nurse Triage [facility] Clare Fleming RN POST-OP (LEFT ankle [address] fracture OR [address] yesterday ) [place] [phone] Allergies Active Allergy Reactions Severity Noted Date Comments Quetiapine Unknown - See comments 10/05/2016 Goes into liver failure Quetiapine Fumarate Other - See comments 01/26/2018 Liver failure documented as of this encounter (statuses as of 07/28/2020) Medications Medication Sig Dispensed Refills Start Date End Date Status methocarbamol 500 mg Take 1,000 mg by 0 Active tablet mouth 2 (two) times daily. butalbital-acetaminoph Take 1 tablet by 0 Active en-caff 50-325-40 mg mouth 2 (two) tablet times [...] mouth as needed for Migraine. naproxen (NAPROSYN) Take 1 tablet by 30 tablet 0 06/10/2018 Active 500 mg tablet mouth 2 (two) times daily with meals. furosemide 20 mg TAKE ONE TABLET 0 05/04/2020 Active tablet BY MOUTH TWICE A DAY omega-3 fatty acids Take 1 capsule 0 Active capsule by mouth. acetaminophen-codeine Take 1 tablet by 40 tablet 0 07/13/2020 Active (TYLENOL-CODEINE #3) mouth every 4 300-30 mg (four) hours as tabletIndications: needed for Pain acute pain (scale 4-6) or Pain (scale 7-10). Indications: acute pain ibuprofen 800 mg Take 800 mg by 0 Active tablet mouth every 6 (six) hours as needed. aspirin E.C. 325 mg EC Take 1 tablet by 56 tablet 0 07/26/2020 08/23/2020 Active tabletIndications: mouth 2 (two) Closed bimalleolar times daily with fracture of left meals for 28 ankle, initial days. encounter HYDROcodone-acetaminop Take 1 tablet by 28 tablet 0 07/26/2020 08/02/2020 Active hen 10-325 mg mouth every 6 tabletIndications: (six) hours as acute pain needed for Pain (scale 4-6) or Pain (scale 7-10) for up to 7 days. Indications: acute pain documented as of this encounter (statuses as of 07/28/2020) Active Problems Problem Noted Date Closed bimalleolar fracture of left ankle, initial enc ounter 07/14/2020 Overview: Added automatically from request for nora spaulding [id number] Venous insufficiency of both lower extremities 019 Fibromyalgia 07/01/2019 documented as of this encounter (statuses as of 07/28/2020) Social History Tobacco Use Types Packs/Day Years Used Date Current Every Day Smoker Cigarettes 1 Sta rted: 1989 Smokeless Tobacco: Never Used [...] with No / Unsure 07/20/2020 3:26 PM SHOPFITTER someone who was confirmed or suspected to have Coronavirus / COVID-19? documented as of this encounter Last Filed Vital Signs Not on filedocumented in this encounter Miscellaneous Notes Telephone Encounter - Clare Fleming RN - 07/27/2020 5:15 PM CSTAdult Triage Assessment Last Clinic Visit: discharged yesterday 07/26/2020 s/p ORIF LEFT ankle fracture; next office visit with Ortho 08/09/2020 Primary Symptom: "swelling's increased and splint cutting into my ankle bones" per patient Onset / Duration: nerve blocks wore-off at midnight last night, noticed increased swelling at 2-3 PMtoday Location / Description: localized, LEFT lower extremity, feels like splint is "cutting into ankle bones.. both sides" Pain / Severity: rates 8/10 at time of call Associated Symptoms: denies drainage Fever / Method: denies but did not check, denies body aches or chills Hydration: eating, drinking, and voiding per usual amounts Treatment so far: ibuprofen 800 mg every 6 hours, last dose at noon; [place] 10/325 mg every 6 hours, last dose at noon; elevated left lower extremity above heart-level, ice packs Effect on ADL's: some change, painful splint LMP: n/a Pre-existing condition / Immunocompromised: fibromyalgia; LEFT ankle fracture Reason for Disposition Symptoms from tight splint Protocols used: SPLINT SYMPTOMS AND AYUROMBUZ-ECVGF-FD FITTER Telephone Encounter - Clare Fleming RN - 07/27/2020 5:15 PM CSTRegarding: swelling in ankle, cast cutting into skin ----- Message from Venus Kunz sent at 07/27/2020 5:04 PM SHOPFITTER ----- Janine Colin is a 55 year old female Patient has swelling in ankle and feels like cast is cutting into skin FITTER documented in this encounter Plan of Treatment Date Type Specialty Care Team Description 08/09/2020 Office Visit Orthopedic Surgery Mina Tucker MD [address] [phone] Health Maintenance Due Date Last Done Comments HEPATITIS C (HCV) SCREEN 1965 PNEUMOCOCCAL 0-64 YEARS COMBINED 1969 SERIES (1 of 1 - PPSV23) DTaP,Tdap,and Td Vaccines (1 - Tdap) 1982 [...] INFLUENZA VACCINE (#1) 2020 07/01/2019, 04/19/2018, 10/15/2015 Depression Screening 07/26/2021 07/26/2020 documented as of this encounter Implants Implanted Type Area Kiln Car Repairer Device Shelf Model / Identifier Expiration Date Ser ial / Lot Plate, Synthes Lcp One-Third Tubular W/Collar 6h/69mm #241.3 61 - [id number] PLATE Left: Synthes 241.361 / Implanted: Qty: 1 on 07/26/2020 by Calvin Busby MD at [facility] Ankle 2 41.361 / 241.361 Screw, Synthes 3.5mm Cortex Slf-T 12mm #204.812 - [id number] SCREW Left: Synthes 204.812 / Implanted: Qty: 1 on 07/26/2020 by Calvin Busby MD at [facility] Ankle 2 04.812 / 204.812 Screw, Synthes 3.5mm Cortex Slf-T 14mm #204.814 - [id number] SCREW Left: Synthes 204.814 / Implanted: Qty: 2 on 07/26/2020 by Calvin Busby MD at [facility] Ankle 2 04.814 / 204.814 Screw, Synthes 3.5mm Cortex Slf-T 16mm #204.816 - [id number] SCREW Left: Synthes 204.816 / Implanted: Qty: 1 on 07/26/2020 by Calvin Busby MD at [facility] Ankle 2 04.816 / 204.816 Screw, Synthes 3.5mm Cortex Slf-T 20mm #204.820 - S204.820 SCREW Left: Synthes 204.820 / Implanted: Qty: 1 on 07/26/2020 by Calvin Busby MD at [facility] Ankle 2 04.820 / 204.820 Screw, Synthes 4.0mm Cancellous Full Thrd/14mm #206.014 - S206.0 14 SCREW Left: Synthes 206.014 / Implanted: Qty: 1 on 07/26/2020 by Calvin Busby MD at [facility] Ankle 2 06.014 / 206.014 Screw, Synthes 4.0mm Cancellous Full Thrd/18mm #206.018 - S206.0 18 SCREW Left: Synthes 206.018 / Implanted: Qty: 1 on 07/26/2020 by Calvin Busby MD at [facility] Ankle 2 06.018 / 206.018 Screw 4.0mm Edie Long Thrd 40mm #207.740 - S0 Synt hes 207.740 / Implanted: Qty: 1 on 07/26/2020 by Calvin Busby MD at [facility] 0 / 0 documented as of this encounter Results Not on filedocumented in this encounter Insurance Payer Benefit Plan / Subscriber ID Effective Dates Phone Addre ss Type Group [id number] 2018-Pre[place] Medicare [place] documented as of this encounter
--- OUTSIDE RECORDS SUMMARY | 2020-09-27 13:26 | XMS REPORT | Summary of Care ---
:[address] [facility] Address [address] [place] [address] Care Team Providers Name Role Phone Jaime Geoffrey Primary Care Provider Reason for Referral (Routine) Status Reason Specialty Diagnoses / Referred By Referred To Procedures Contact Contact New Request Diagnostic Diagnoses Closed bimalleolar fracture of left ankle, initial encounter Calvin Tucker Radiology Procedures FL TIME OR (NON-REPORTABLE) MD Gia [address] [place] [address] [place] [address] Reason for Visit Auth/Cert Status Reason Specialty Diagnoses / Procedures Referred By Princess sparks Referred To Contact Surgery Diagnoses Displaced bimalleolar fracture of left lower leg, initial encounter for closed fracture Closed bimalleolar fracture of left ankle, initial encounter [C86.468Y] Adc Pre/Pacu/Post Procedures DE OPEN RX ANKLE DISLOCATN+FIXATN ANKLE ORIF [id number] - DE OPEN RX ANKLE DISLOCATN+FIXATN [address] [place], [place] [address] Phone: Fax: Encounter Details Date Type Department Care Team Description 07/26/2020 Hospital Encounter [facility] Calvin Tucker Close d bimalleolar [facility] MD Gia fracture of left [address] [facility] [address], [place] [address] [place] [address] [place], [place] [phone] Allergies Active Allergy Reactions Severity Noted Date Comments Quetiapine Unknown - See comments 10/05/2016 Goes into liver failure Quetiapine Fumarate Other - See comments 01/26/2018 Liver failure documented as of this encounter (statuses as of 07/26/2020) Medications Medication Sig Dispensed Refills Start Date [...] as of this encounter (statuses as of 07/26/2020) Active Problems Problem Noted Date Closed bimalleolar fracture of left ankle, initial enc ounter 07/14/2020 Overview: Added automatically from request for nora spaulding [id number] Venous insufficiency of both lower extremities 019 Fibromyalgia 07/01/2019 documented as of this encounter (statuses as of 07/26/2020) Social History Tobacco Use Types Packs/Day Years [...] with No / Unsure 07/20/2020 3:26 PM DAY CARE TEACHER someone who was confirmed or suspected to have Coronavirus / COVID-19? documented as of this encounter Last Filed Vital Signs Vital Sign Reading Time Taken Comments Blood Pressure 112/75 07/26/2020 3:00 PM DAY CARE TEACHER Pulse 77 07/26/2020 3:00 PM DAY CARE TEACHER Temperature 36.9 C (98.4 F) 07/26/2020 2:50 PM DAY CARE TEACHER Respiratory Rate 10 07/26/2020 3:00 PM DAY CARE TEACHER Oxygen Saturation 97% 07/26/2020 3:00 PM DAY CARE TEACHER Inhaled Oxygen Concentration - - Weight 59 kg (130 lb) 07/20/2020 3:15 PM DAY CARE TEACHER Height 157.5 cm (5' 2") 07/20/2020 3:15 PM DAY CARE TEACHER Body Mass Index 23.78 07/20/2020 3:15 PM DAY CARE TEACHER documented in this encounter Discharge Instructions AttachmentsThe following attachments cannot be sent through Care Everywhere. Ankle Surgery, Discharge Instructions for (Trinidadian)Peripheral Nerve Blocks (PNBs), Understanding (Trinidadian)documented in this encounter Miscellaneous Notes Nursing Note - Dorothea Flores RN - 07/26/2020 2:14 PM CSTAdditional block administered by Dr Gracia. Pt was given smack and oral pain meds. Will continue to monitor. ursing Note - Dorothea Flores RN - 07/26/2020 1:[address]ST[address] Gracia at bedside to assess Pt. Pt complains of pain at top of ankle. Pt was given option of additional nerve block and agreed. Family updated. ursing Note - Dorothea Flores RN - 07/26/2020 1:37 PM CSTPt IV not working. Pt now alert and calm. Pt rates pain 03/05. Dr Caruso consulted and will write for oral marshall medication. ursing Note - Terra Swenson RN - 07/26/2020 9:06 AM CSTSCD placed on RLE. ursing Note - Terra Swenson RN - 07/26/2020 9:01 AM CSTTom ANNETTE at assessing patient for possible central line. Reported to Freddy BRYANT of EKG not being in chart. Freddy BRYANT stated okay with that. documented in this encounter Plan of Treatment [...] of this encounter Implants Implanted Type Area Phone Triage Specialist Device Shelf Model / Identifier Expiration Serial / Date Lot One Third Tubular Lcp Plate PLATE Left: Depuy Synthes 241.361 / Implanted: Qty: 1 on 07/26/2020 by Calvin Busby MD at [facility] Ankle 2 41.361 / 241.361 3.5mm Cortex Screw 12mm SCREW Left: Depuy Synthes 204.812 / Implanted: Qty: 1 on 07/26/2020 by Calvin Busby MD at [facility] Ankle 2 04.812 / 204.812 3.5mm Cortex Screw 14mm SCREW Left: Depuy Synthes 204.814 / Implanted: Qty: 2 on 07/26/2020 by Calvin Busby MD at [facility] Ankle 2 04.814 / 204.814 3.5mm Cortex Screw 16mm SCREW Left: Depuy Synthes 204.816 / Implanted: Qty: 1 on 07/26/2020 by Calvin Busby MD at [facility] Ankle 2 04.816 / 204.816 3.5mm Cortex Screw 20mm SCREW Left: Depuy Synthes 204.820 / Implanted: Qty: 1 on 07/26/2020 by Calvin Busby MD at [facility] Ankle 2 04.820 / 204.820 4.0mm Cancelloust Bone Screw 14mm SCREW Left: Depuy Synthes 206.014 / Implanted: Qty: 1 on 07/26/2020 by Calvin Busby MD at [facility] Ankle 2 06.014 / 206.014 4.0 Mm Cancellous Bone Screw 18mm SCREW Left: Depuy Synthes 206.018 / Implanted: Qty: 1 on 07/26/2020 by Calvin Busby MD at [facility] Ankle 2 06.018 / 206.018 documented as of this encounter Procedures Procedure Name Priority Date/Time Associated Diagnosis Comme nts FL TIME OR Routine 07/26/2020 12:52 PM Closed bimalleolar Re sults for this (NON-REPORTABLE) DAY CARE TEACHER fracture of left procedu re are in ankle, initial the results encounter section. DSU PRE-OP Routine 07/14/2020 12:01 AM DAY CARE TEACHER MEDICAL Routine 07/14/2020 12:01 AM RELEASE/CLEARANCE DAY CARE TEACHER FORMS documented in this encounter Results FL TIME OR (NON-REPORTABLE) (07/26/2020 12:52 PM DAY CARE TEACHER) Specimen Narrative Performed At These images do not require a Radiology diagnostic rep ort. PACS Performing Organization Address City/State/Zipcode Phone Number PACS documented in this encounter Visit Diagnoses Diagnosis Closed bimalleolar fracture of left ankl e, initial encounter - Primary documented in this encounter Administered Medications Medication Order MAR Action Action Date Dose Rate Site HYDROcodone-acetaminophen Given 07/26/2020 2:02 PM DAY CARE TEACHER 1 tablet (NORCO 5) 5-325 mg tablet 1 tablet 1 tablet, Oral, Q6HPRN, Starting 07/26/20 at 1347, Until Discontinued, Routine, Pain (scale 4-6), PACU morpHINE injection 2 mg 2 mg, Slow IV Push, Q5MIN PRN, 5 doses, Starting 09/25/19 at 1249, Until Discontinued, Routine, Pain (scale 4-6), PACU ondansetron (ZOFRAN (PF)) injection 4 mg 4 mg, Slow IV Push, PRN, 1 dose, Startin g 07/26/20 at 1249, Until Discontinued, Routine, Nausea and Vomiting (N/V), PACU sodium chloride 0.9 % irrigation Given 07/26/2020 11:25 AM DAY CARE TEACHER 1 ,000 mL Left Ankle solution PRN, Starting Sun07/26/20 at 1005, Until Discontinued, Intra-op documented in this encounter Insurance Payer Benefit Plan / Subscriber ID Effective Dates Phone Addre ss Type Group [employer] [id number] 2018-Prese Medicare Adv [place] HMO documented as of this encounter
--- OUTSIDE RECORDS SUMMARY | 2020-09-27 13:27 | XMS REPORT | Summary of Care ---
:1965 Author Organization [facility] Address [address] [place] [address] Care Team Providers Name Role Phone Geoffrey Sandoval Primary Care Provider Reason for Visit Reason Comments Assessment Encounter Details Date Type Department Care Team Description 07/28/2020 Telephone [facility] Orthopaedic Boyd Stack, PAC Assessment Surgery- [place] [address] [facility] [address] [facility], [address] [place] [address] [place] [phone] Allergies Active Allergy Reactions Severity Noted Date [...] Added automatically from request for nora spaulding [id number] Venous insufficiency of both lower extremities 019 [...] with No / Unsure 07/20/2020 3:26 PM HAT FINISHING MATERIALS PREPARER someone who was confirmed or suspected to have Coronavirus / COVID-19? documented as of this encounter Last Filed Vital Signs Not on filedocumented in this encounter Miscellaneous Notes Telephone Encounter - Jolly Forbes - 07/28/2020 1:24 PM HAT FINISHING MATERIALS PREPARER PT called Regarding: swelling in ankle, cast cutting into skin ORIF Lt ankle DOS: 07/26/20 documented in this encounter Plan of Treatment Date Type Specialty Care Team Description 08/09/2020 Office Visit Orthopedic Surgery Mina Tucker MD [address] [place] [address] [phone] Health Maintenance Due Date Last Done [...] of this encounter Implants Implanted Type Area Cable Coverer Device Shelf Model / Identifier Expiration Date Ser ial / Lot Plate, Synthes Lcp One-Third Tubular W/Collar 6h/69mm #241.3 61 - [id number] PLATE Left: Synthes 241.361 / Implanted: Qty: 1 on 07/26/2020 by Calvin Busby MD at [facility] Ankle 2 41.361 / 241.361 Screw, Synthes 3.5mm Cortex Slf-T 12mm #204.812 - S204.812 SCREW Left: Synthes 204.812 / Implanted: Qty: 1 on 07/26/2020 by Calvin Busby MD at [facility] Ankle 2 04.812 / 204.812 Screw, Synthes 3.5mm Cortex Slf-T 14mm #204.814 - S204.814 SCREW Left: Synthes 204.814 / Implanted: Qty: 2 on 07/26/2020 by Calvin Busby MD at [facility] Ankle 2 04.814 / 204.814 Screw, Synthes 3.5mm Cortex Slf-T 16mm #204.816 - S204.816 SCREW Left: Synthes 204.816 / Implanted: Qty: 1 on 07/26/2020 by Calvin Busby MD at [facility] Ankle 2 04.816 / 204.816 Screw, Synthes 3.5mm Cortex Slf-T 20mm #204.820 - S204.820 SCREW Left: Synthes 204.820 / Implanted: Qty: 1 on 07/26/2020 by Calvin Busby MD at [facility] Ankle 2 04.820 / 204.820 Screw, Synthes 4.0mm Cancellous Full Thrd/14mm #206.014 - S206.0 14 SCREW Left: Synthes 206.014 / Implanted: Qty: 1 on 07/26/2020 by Calvin Busby MD at [facility] Ankle 2 06.014 / 206.014 Screw, Synthes 4.0mm Cancellous Full Thrd/18mm #206.018 - S206.0 18 SCREW Left: Synthes 206.018 / Implanted: Qty: 1 on 07/26/2020 by Calvin Busby MD at [facility] Ankle 2 06.018 / 206.018 Screw 4.0mm Edie Long Thrd 40mm #207.740 - S0 Synt hes 207.740 / Implanted: Qty: 1 on 07/26/2020 by Calvin Busby MD at [facility] 0 / 0 documented as of this encounter Results Not on filedocumented in this encounter Insurance Payer Benefit Plan / Subscriber ID Effective Dates Phone Addre ss Type Group [employer] [id number] 2018-Prese Medicare Adv [place] HMO documented as of this encounter
--- OUTSIDE RECORDS SUMMARY | 2020-09-27 13:27 | XMS REPORT | Summary of Care ---
:1965 Author Organization [facility] - [facility] Address [address] [place] [address] Care Team Providers Name Role Phone Geoffrey Sandoval Primary Care Provider Reason for Referral Radiology Services (Routine) Status Reason Specialty Diagnoses / Referred By Referred To Procedures Contact Contact New Request Diagnostic Diagnoses Closed bimalleolar fracture of left ankle, initial encounter Calvin Tucker Radiology Procedures XR ANKLE 3+ VW LEFT MD Gia [email or web address] [facility] [place] [address] Reason for Visit Reason Comments Xray Left Ankle Encounter Details Date Type Department Care Team Description 08/09/2020 Telephone [facility] Orthopaedic Calvin Tucker , Xray (Left Ankle ) Surgery- Tyrell SALCEDO [address] [facility] [address] [email or web address] [address] [address] [place], [place] [phone] [address] Allergies Active Allergy Reactions Severity Noted Date Comments Quetiapine Unknown - See comments 10/05/2016 Goes into liver failure Quetiapine Fumarate Other - See comments 01/26/2018 Liver failure documented as of this encounter (statuses as of 08/09/2020) Medications Medication Sig Dispensed Refills Start Date [...] meals for 28 ankle, initial days. encounter documented as of this encounter (statuses as of 08/09/2020) Active Problems Problem Noted Date Closed bimalleolar fracture of left ankle, initial enc ounter 07/14/2020 Overview: Added automatically from request for nora chelly [id number] Venous insufficiency of both lower extremities 019 Fibromyalgia 07/01/2019 documented as of this encounter (statuses as of 08/09/2020) Social History Tobacco Use Types Packs/Day Years [...] with No / Unsure 07/20/2020 3:26 PM TOOLING SPECIALIST someone who was confirmed or suspected to have Coronavirus / COVID-19? documented as of this encounter Last Filed Vital Signs Not on filedocumented in this encounter Miscellaneous Notes Telephone Encounter - Arlin Darby MA - 08/09/2020 9:42 AM CSTNo in office point of care technician. Arlin Darby MA 08/09/2020 9:43 AM documented in this encounter Plan of Treatment Date Type Specialty Care Team Description 08/09/2020 Hospital Encounter Radiology Mina Tucker MD Arrived [address], [place] [address] 08/09/2020 Office Visit Orthopedic Surgery Mnia Tucker MD [address] [place] [address] Mejia Stack, LORENE [address] [place] [address] Name Type Priority Associated Diagnoses Date/Ti me XR ANKLE 3+ VW LEFT IMAGING Routine Closed bimalleolar 9:42 AM TOOLING SPECIALIST fracture of left ankle, initial encounter Name Type Priority Associated Diagnoses Order S chedule XR ANKLE 3+ VW LEFT IMAGING Routine Closed bimalleolar Ex pected: 08/09/2020, fracture of left ankle, Expi res: 08/09/2021 initial encounter Health Maintenance Due Date Last [...] of this encounter Implants Implanted Type Area Chronic Specialist Device Shelf Model / Identifier Expiration Date Ser ial / Lot Plate, Synthes Lcp One-Third Tubular W/Collar 6h/69mm #241.3 61 - [id number] PLATE Left: Synthes 241.361 / Implanted: Qty: 1 on 07/26/2020 by Calvin Busby MD at [facility] Ankle 2 41.361 / 241.361 Screw, Synthes 3.5mm Cortex Slf-T 12mm #204.812 - S204.812 SCREW Left: Synthes 204.812 / Implanted: Qty: 1 on 07/26/2020 by Calvin Busby MD at [facility] Ankle 2 04.812 / 204.812 Screw, Synthes 3.5mm Cortex Slf-T 14mm #204.814 - S204.814 SCREW Left: Synthes 204.814 / Implanted: Qty: 2 on 07/26/2020 by Calvin Busby MD at [facility] Ankle 2 04.814 / 204.814 Screw, Synthes 3.5mm Cortex Slf-T 16mm #204.816 - S204.816 SCREW Left: Synthes 204.816 / Implanted: Qty: 1 on 07/26/2020 by Calvin Busby MD at [facility] Ankle 2 04.816 / 204.816 Screw, Synthes 3.5mm Cortex Slf-T 20mm #204.820 - S204.820 SCREW Left: Synthes 204.820 / Implanted: Qty: 1 on 07/26/2020 by Calvin Busby MD at [facility] Ankle 2 04.820 / 204.820 Screw, Synthes 4.0mm Cancellous Full Thrd/14mm #206.014 - S206.0 14 SCREW Left: Synthes 206.014 / Implanted: Qty: 1 on 07/26/2020 by Calvin Busby MD at [facility] Ankle 2 06.014 / 206.014 Screw, Synthes 4.0mm Cancellous Full Thrd/18mm #206.018 - S206.0 18 SCREW Left: Synthes 206.018 / Implanted: Qty: 1 on 07/26/2020 by Calvin Busby MD at [facility] Ankle 2 06.018 / 206.018 Screw 4.0mm Edie Long Thrd 40mm #207.740 - S0 Synt hes 207.740 / Implanted: Qty: 1 on 07/26/2020 by Calvin Busby MD at [facility] 0 / 0 documented as of this encounter Results Not on filedocumented in this encounter Visit Diagnoses Diagnosis Closed bimalleolar fracture of left ankl e, initial encounter - Primary Closed bimalleolar fracture of left ankl e, initial encounter documented in this encounter Insurance Payer Benefit Plan / Subscriber ID Effective Dates Phone Addre ss Type Group [employer] [id number] 2018-[facility]se [facility] documented as of this encounter
--- OUTSIDE RECORDS SUMMARY | 2020-09-27 13:27 | XMS REPORT | Summary of Care ---
:1965 Author Organization [facility] Address [address] [place] [address] Care Team Providers Name Role Phone Geoffrey Sandoval Primary Care Provider Reason for Visit Reason Comments Assessment Encounter Details Date Type Department Care Team Description 07/27/2020 Telephone [facility] Orthopaedic Calvin Tucker MD Assessment Surgery- [place] [address] [facility] [address] [facility], [address] [place] [address] [place] [address] [phone] Allergies Active Allergy Reactions Severity Noted Date [...] Added automatically from request for nora spaulding [id number] Venous insufficiency of both lower extremities 019 [...] with No / Unsure 07/20/2020 3:26 PM GALLEY BOY someone who was confirmed or suspected to have Coronavirus / COVID-19? documented as of this encounter Last Filed Vital Signs Not on filedocumented in this encounter Miscellaneous Notes Telephone Encounter - Mejia Stack PAC - 07/28/2020 5:49 PM CSTDelaney came into the clinic today and I rewrapped her ankle splint making sure to pull the lateral stress to release any tension this was helpful elephone Encounter - Arlin Darby - 07/28/2020 11:28 AM CSTS/P ORIF Ankle - 07/26/2020 Arlin Darby 07/28/2020 11:29 AM elephone Encounter - Mathew Robertson - 07/28/2020 11:21 AM CSTPt is calling back and her foot is still hurting and swelling patient needs a call back this morning. elephone Encounter - Bella Villalpando - 07/27/2020 4:09 PM CSTCarmen Suleiman Colin is a 55 year old female is calling stating she is having extreme swelling in her left ankle making it seem like the cast/bandage is cutting the skin causing horrible pain to the point medication isnt helping. Nurse backline isnt working and patient requests a call back this evening from one of the nurses or . Please call patient to advise. Thank you. documented in this encounter Plan of Treatment Date Type Specialty Care Team Description 08/09/2020 Office Visit Orthopedic Surgery Mina Tucker MD [address] [place] [phone] Health Maintenance Due Date Last Done [...] of this encounter Implants Implanted Type Area Mold Polisher Device Shelf Model / Identifier Expiration Date Ser ial / Lot Plate, Synthes Lcp One-Third Tubular W/Collar 6h/69mm #241.3 61 - [id number] PLATE Left: Synthes 241.361 / Implanted: Qty: 1 on 07/26/2020 by Calvin Busby MD at [facility] Ankle 2 41.361 / 241.361 Screw, Synthes 3.5mm Cortex Slf-T 12mm #204.812 - S204.812 SCREW Left: Synthes 204.812 / Implanted: Qty: 1 on 07/26/2020 by Calvin Busby MD at [facility] Ankle 2 04.812 / 204.812 Screw, Synthes 3.5mm Cortex Slf-T 14mm #204.814 - S204.814 SCREW Left: Synthes 204.814 / Implanted: Qty: 2 on 07/26/2020 by Calvin Busby MD at [facility] Ankle 2 04.814 / 204.814 Screw, Synthes 3.5mm Cortex Slf-T 16mm #204.816 - S204.816 SCREW Left: Synthes 204.816 / Implanted: Qty: 1 on 07/26/2020 by Calvin Busby MD at [facility] Ankle 2 04.816 / 204.816 Screw, Synthes 3.5mm Cortex Slf-T 20mm #204.820 - S204.820 SCREW Left: Synthes 204.820 / Implanted: Qty: 1 on 07/26/2020 by Calvin Busby MD at [facility] Ankle 2 04.820 / 204.820 Screw, Synthes 4.0mm Cancellous Full Thrd/14mm #206.014 - S206.0 14 SCREW Left: Synthes 206.014 / Implanted: Qty: 1 on 07/26/2020 by Calvin Busby MD at [facility] Ankle 2 06.014 / 206.014 Screw, Synthes 4.0mm Cancellous Full Thrd/18mm #206.018 - S206.0 18 SCREW Left: Synthes 206.018 / Implanted: Qty: 1 on 07/26/2020 by Calvin Busby MD at [facility] Ankle 2 06.018 / 206.018 Screw 4.0mm Edie Long Thrd 40mm #207.740 - S0 Synt hes 207.740 / Implanted: Qty: 1 on 07/26/2020 by Calvin Busby MD at [facility] 0 / 0 documented as of this encounter Results Not on filedocumented in this encounter Insurance Payer Benefit Plan / Subscriber ID Effective Dates Phone Addre ss Type Group [employer] [id number] 2018-Prese Medicare Adv [place] documented as of this encounter
--- OUTSIDE RECORDS SUMMARY | 2020-09-27 13:27 | XMS REPORT | Summary of Care ---
:1965 Author Organization [facility] - Health Address [address] [place] [address] Care Team Providers Name Role Phone Jaime Geoffrey Primary Care Provider Encounter Details Date Type Department Care Team Description 07/19/2020 Orders Only [facility] Doctor Unassigned, No [address] [facility] [place] [address] [address] [place] [address] Allergies Active Allergy Reactions Severity Noted Date Comments Quetiapine Unknown - See comments 10/05/2016 Goes into liver failure Quetiapine Fumarate Other - See comments 01/26/2018 Liver failure documented as of this encounter (statuses as of 07/29/2020) Medications Medication Sig Dispensed Refills Start Date [...] as of this encounter (statuses as of 07/29/2020) Active Problems Problem Noted Date Closed bimalleolar fracture of left ankle, initial enc ounter 07/14/2020 Overview: Added automatically from request for nora spaulding [id number] Venous insufficiency of both lower extremities 019 Fibromyalgia 07/01/2019 documented as of this encounter (statuses as of 07/29/2020) Social History Tobacco Use Types Packs/Day Years [...] with No / Unsure 07/20/2020 3:26 PM DIGITAL SALES REPRESENTATIVE someone who was confirmed or suspected to have Coronavirus / COVID-19? documented as of this encounter Last Filed Vital Signs Not on filedocumented in this encounter Plan of Treatment Date Type Specialty Care Team Description 08/09/2020 Office Visit Orthopedic Surgery Mina Tucker MD [address] [place] [address] [phone] Health Maintenance Due Date Last Done [...] of this encounter Implants Implanted Type Area Manager Merchandising Device Shelf Model / Identifier Expiration Date Ser ial / Lot Plate, Synthes Lcp One-Third Tubular W/Collar 6h/69mm #241.3 61 - [id number] PLATE Left: Synthes 241.361 / Implanted: Qty: 1 on 07/26/2020 by Calvin Busby MD at [facility] Ankle 2 41.361 / 241.361 Screw, Synthes 3.5mm Cortex Slf-T 12mm #204.812 - S204.812 SCREW Left: Synthes 204.812 / Implanted: Qty: 1 on 07/26/2020 by Calvin Busby MD at [facility] Ankle 2 04.812 / 204.812 Screw, Synthes 3.5mm Cortex Slf-T 14mm #204.814 - S204.814 SCREW Left: Synthes 204.814 / Implanted: Qty: 2 on 07/26/2020 by Calvin Busby MD at [facility] Ankle 2 04.814 / 204.814 Screw, Synthes 3.5mm Cortex Slf-T 16mm #204.816 - S204.816 SCREW Left: Synthes 204.816 / Implanted: Qty: 1 on 07/26/2020 by Calvin Busby MD at [facility] Ankle 2 04.816 / 204.816 Screw, Synthes 3.5mm Cortex Slf-T 20mm #204.820 - S204.820 SCREW Left: Synthes 204.820 / Implanted: Qty: 1 on 07/26/2020 by Calvin Busby MD at [facility] Ankle 2 04.820 / 204.820 Screw, Synthes 4.0mm Cancellous Full Thrd/14mm #206.014 - S206.0 14 SCREW Left: Synthes 206.014 / Implanted: Qty: 1 on 07/26/2020 by Calvin Busby MD at [facility] Ankle 2 06.014 / 206.014 Screw, Synthes 4.0mm Cancellous Full Thrd/18mm #206.018 - S206.0 18 SCREW Left: Synthes 206.018 / Implanted: Qty: 1 on 07/26/2020 by Calvin Busby MD at [facility] Ankle 2 06.018 / 206.018 Screw 4.0mm Edie Long Thrd 40mm #207.740 - S0 Synt hes 207.740 / Implanted: Qty: 1 on 07/26/2020 by Calvin Busby MD at [facility] 0 / 0 documented as of this encounter Procedures Procedure Name Priority Date/Time Associated Diagnosis Comme nts MEDICAL Routine 07/19/2020 12:01 AM DIGITAL SALES REPRESENTATIVE RELEASE/CLEARANCE FORMS documented in this encounter Results Not on filedocumented in this encounter Additional Health Concerns Infection Onset Date Last Indicated Resolved Time COVID-19 Rule Out 07/21/2020 07/21/2020 07/21/2020 12: 00 PM DIGITAL SALES REPRESENTATIVE documented as of this encounter Insurance Payer Benefit Plan / Subscriber ID Effective Dates Phone Addre ss Type Group [employer] [id number] 2018-[facility] Medicare Adv spring nt HMO documented as of this encounter
--- OUTSIDE RECORDS SUMMARY | 2020-09-27 13:27 | XMS REPORT | Summary of Care ---
:1965 Author Organization [facility] - Health Address [address] [place] [address] Care Team Providers Name Role Phone Jaime Geoffrey Primary Care Provider Encounter Details Date Type Department Care Team Description 07/26/2020 Orders Only [facility] Doctor Unassigned, No 301 [facility] [place] [address] [address] [place] [address] Allergies Active Allergy Reactions Severity Noted Date [...] Added automatically from request for nora spaulding [id number] Venous insufficiency of both lower extremities 019 [...] with No / Unsure 07/20/2020 3:26 PM HUC someone who was confirmed or suspected to have Coronavirus / COVID-19? documented as of this encounter Last Filed Vital Signs Not on filedocumented in this encounter Plan of Treatment Date Type Specialty Care Team Description 08/09/2020 Office Visit Orthopedic Surgery Mina Tucker MD [address] [place] [address] [phone] Health Maintenance Due Date Last Done [...] of this encounter Implants Implanted Type Area Housing Assistant Property Manager Device Shelf Model / Identifier Expiration Date Ser ial / Lot Plate, Synthes Lcp One-Third Tubular W/Collar 6h/69mm #241.3 61 - [id number] PLATE Left: Synthes 241.361 / Implanted: Qty: 1 on 07/26/2020 by Calvin Busby MD at [facility] Ankle 2 41.361 / 241.361 Screw, Synthes 3.5mm Cortex Slf-T 12mm #204.812 - S204.812 SCREW Left: Synthes 204.812 / Implanted: Qty: 1 on 07/26/2020 by Calvin Busby MD at [facility] Ankle 2 04.812 / 204.812 Screw, Synthes 3.5mm Cortex Slf-T 14mm #204.814 - S204.814 SCREW Left: Synthes 204.814 / Implanted: Qty: 2 on 07/26/2020 by Calvin Busby MD at [facility] Ankle 2 04.814 / 204.814 Screw, Synthes 3.5mm Cortex Slf-T 16mm #204.816 - S204.816 SCREW Left: Synthes 204.816 / Implanted: Qty: 1 on 07/26/2020 by Calvin Busby MD at [facility] Ankle 2 04.816 / 204.816 Screw, Synthes 3.5mm Cortex Slf-T 20mm #204.820 - S204.820 SCREW Left: Synthes 204.820 / Implanted: Qty: 1 on 07/26/2020 by Calvin Busby MD at [facility] Ankle 2 04.820 / 204.820 Screw, Synthes 4.0mm Cancellous Full Thrd/14mm #206.014 - S206.0 14 SCREW Left: Synthes 206.014 / Implanted: Qty: 1 on 07/26/2020 by Calvin Busby MD at [facility] Ankle 2 06.014 / 206.014 Screw, Synthes 4.0mm Cancellous Full Thrd/18mm #206.018 - S206.0 18 SCREW Left: Synthes 206.018 / Implanted: Qty: 1 on 07/26/2020 by Calvin Busby MD at [facility] Ankle 2 06.018 / 206.018 Screw 4.0mm Edie Long Thrd 40mm #207.740 - S0 Synt hes 207.740 / Implanted: Qty: 1 on 07/26/2020 by Calvin Busby MD at [facility] 0 / 0 documented as of this encounter Procedures Procedure Name Priority Date/Time Associated Diagnosis Comme DAY SURGERY - ADC Routine 07/26/2020 12:01 AM HUC documented in this encounter Results Not on filedocumented in this encounter Insurance Payer Benefit Plan / Subscriber ID Effective Dates Phone Addre ss Type Group [employer] [id number] 2018-Prese Medicare [facility] documented as of this encounter
--- OUTSIDE RECORDS SUMMARY | 2020-09-27 13:28 | XMS REPORT | Summary of Care ---
:1965 Author Organization [facility] Address [address] [place] [address] Care Team Providers Name Role Phone Geoffrey Sandoval Primary Care Provider Reason for Visit Radiology Services (Routine) Status Reason Specialty Diagnoses / Referred By Referred To Procedures Contact Contact Closed Diagnostic Diagnoses Closed bimalleolar fracture of left ankle, initial encounter Calvin Tucker Radiology Procedures XR ANKLE 3+ VW CUATE Nielsen MD [address] [place] [address] Encounter Details Date Type Department Care Team Description 08/09/2020 Hospital Encounter [facility] Holden Tucker, Dave Fischer Radiology MD [address] [place] [address] Dr sibley [address] [place] [address] [place] [address] [place] [address] Allergies Active Allergy Reactions Severity Noted Date Comments Quetiapine Unknown - See comments 10/05/2016 Goes into liver failure Quetiapine Fumarate Other - See comments 01/26/2018 Liver failure documented as of this encounter (statuses as of 08/10/2020) Medications Medication Sig Dispensed Refills Start Date [...] as of this encounter (statuses as of 08/10/2020) Active Problems Problem Noted Date Closed bimalleolar fracture of left ankle, initial enc ounter 07/14/2020 Overview: Added automatically from request for nora chelly [id number] Venous insufficiency of both lower extremities 019 Fibromyalgia 07/01/2019 documented as of this encounter (statuses as of 08/10/2020) Social History Tobacco Use Types Packs/Day Years [...] with No / Unsure 07/20/2020 3:26 PM EXECUTIVE VICE PRESIDENT someone who was confirmed or suspected to have Coronavirus / COVID-19? documented as of this encounter Last Filed Vital Signs Not on filedocumented in this encounter Plan of Treatment Date Type Specialty Care Team Description 09/01/2020 Office Visit Orthopedic Surgery Mejia Stack, PAC [address] [place] [address] [phone] Health Maintenance Due Date Last Done [...] of this encounter Implants Implanted Type Area Research Project Coordinator Device Shelf Model / Identifier Expiration Date Ser ial / Lot Plate, Synthes Lcp One-Third Tubular W/Collar 6h/69mm #241.3 61 - [id number] PLATE Left: Synthes 241.361 / Implanted: Qty: 1 on 07/26/2020 by Calvin Busby MD at [facility] Ankle 2 41.361 / 241.361 Screw, Synthes 3.5mm Cortex Slf-T 12mm #204.812 - S204.812 SCREW Left: Synthes 204.812 / Implanted: Qty: 1 on 07/26/2020 by Calvin Busby MD at [facility] Ankle 2 04.812 / 204.812 Screw, Synthes 3.5mm Cortex Slf-T 14mm #204.814 - S204.814 SCREW Left: Synthes 204.814 / Implanted: Qty: 2 on 07/26/2020 by Calvin Busby MD at [facility] Ankle 2 04.814 / 204.814 Screw, Synthes 3.5mm Cortex Slf-T 16mm #204.816 - S204.816 SCREW Left: Synthes 204.816 / Implanted: Qty: 1 on 07/26/2020 by Calvin Busby MD at [facility] Ankle 2 04.816 / 204.816 Screw, Synthes 3.5mm Cortex Slf-T 20mm #204.820 - S204.820 SCREW Left: Synthes 204.820 / Implanted: Qty: 1 on 07/26/2020 by Calvin Busby MD at [facility] Ankle 2 04.820 / 204.820 Screw, Synthes 4.0mm Cancellous Full Thrd/14mm #206.014 - S206.0 14 SCREW Left: Synthes 206.014 / Implanted: Qty: 1 on 07/26/2020 by Calvin Busby MD at [facility] Ankle 2 06.014 / 206.014 Screw, Synthes 4.0mm Cancellous Full Thrd/18mm #206.018 - S206.0 18 SCREW Left: Synthes 206.018 / Implanted: Qty: 1 on 07/26/2020 by Calvin Busby MD at [facility] Ankle 2 06.018 / 206.018 Screw 4.0mm Edie Long Thrd 40mm #207.740 - S0 Synt hes 207.740 / Implanted: Qty: 1 on 07/26/2020 by Calvin Busby MD at [facility] 0 / 0 documented as of this encounter Procedures Procedure Name Priority Date/Time Associated Diagnosis Comme nts XR ANKLE 3+ VW LEFT Routine 08/09/2020 1:32 Closed bimalleola r Results for this PM EXECUTIVE VICE PRESIDENT fracture of left procedure a re in ankle, initial the results encounter section. CONSENT/REFUSAL FOR Routine 08/09/2020 12:49 DIAGNOSIS AND PM EXECUTIVE VICE PRESIDENT TREATMENT ASSIGNMENT OF Routine 08/09/2020 12:48 BENEFITS PM EXECUTIVE VICE PRESIDENT documented in this encounter Results XR ANKLE 3+ VW LEFT (08/09/2020 1:32 PM EXECUTIVE VICE PRESIDENT) Specimen Impressions Performed At PACS/VR/DOSE 1. THERE HAS BEEN INTERVAL ORIF OF THE MALLEOLUS WITH SCREW IN APPROPRIATE POSITION. MEDIAL MALLEOLAR FRACTURE IS I N ANATOMIC ALIGNMENT. 2. THERE IS ALSO BEEN FIXATION OF THE FIBULA WITH HARD FROST IN APPROPRIATE POSITION. DISTAL FIBULAR FRACTURE IS IN ANATOMIC ALIGNMENT. 3. CAST IS IN PLACE. End of report. Electronically signed by Leonardo Rojas MD at 0 4:13 PM Narrative Performed At STUDY:XR ANKLE 3+ VW LEFT PACS/VR/DOSE ORDERING PHYSICIAN: CALVIN TUCKER CLINICAL HISTORY: S/P ORIF LT Ankle ; COMPARISON: 07/20/2020 TECHNIQUE: 3 radiographs of the left ankle were per formed. FINDINGS/ Procedure Note [facility], Radiant Results Inft User - 2019 4:14 PM EXECUTIVE VICE PRESIDENT STUDY:XR ANKLE 3+ VW LEFT ORDERING PHYSICIAN: CALVIN TUCKER CLINICAL HISTORY: S/P ORIF LT Ankle ; COMPARISON: 07/20/2020 TECHNIQUE: 3 radiographs of the left ankle were per formed. FINDINGS/ IMPRESSION 1. THERE HAS BEEN INTERVAL ORIF OF THE M ALLEOLUS WITH SCREW IN APPROPRIATE POSITION. MEDIAL MALLEOLAR FRACTURE IS I N ANATOMIC ALIGNMENT. 2. THERE IS ALSO BEEN FIXATION OF THE FI BULA WITH HARDWARE IN APPROPRIATE POSITION. DISTAL FIBULAR FRACTURE IS IN ANATOMIC ALIGNMENT. 3. CAST IS IN PLACE. End of report. Performing Organization Address City/State/Zipcode Phone Number [facility]/VR/[employer] documented in this encounter Visit Diagnoses Diagnosis Closed bimalleolar fracture of left ankl e, initial encounter documented in this encounter Insurance Payer Benefit Plan / Subscriber ID Effective Dates Phone Addre ss Type Group [employer] [id number] 2018-Prese Medicare Adv [place] nt HMO documented as of this encounter
--- OUTSIDE RECORDS SUMMARY | 2020-09-27 13:28 | XMS REPORT | Summary of Care ---
:1965 Author Organization [facility] - [facility] Address [address] [place] [address] Care Team Providers Name Role Phone Jaime Geoffrey Primary Care Provider Reason for Visit Reason Comments Follow-up ORIF left ankle DOS 07/26/20 20 Encounter Details Date Type Department Care Team Description 08/09/2020 Office Visit [facility] Orthopaedic Calvin Tucker MD [address] [place] [address] Closed bimalleolar fracture of left ankl e with routine healing, subsequent encounter (Primary Dx); Surgery- [facility], LORENE [address] [place] [address] Status post open reduction with internal fixation (ORIF) of fracture of ankle [address] [place] [address] Allergies Active Allergy Reactions Severity Noted Date [...] Added automatically from request for nora chelly [id number] Venous insufficiency of both lower extremities 019 [...] with No / Unsure 07/20/2020 3:26 PM SAFETY GLASS INSTALLER someone who was confirmed or suspected to have Coronavirus / COVID-19? documented as of this encounter Last Filed Vital Signs Vital Sign Reading Time Taken Comments Blood Pressure 97/66 08/09/2020 1:44 PM SAFETY GLASS INSTALLER Pulse 66 08/09/2020 1:44 PM SAFETY GLASS INSTALLER Temperature - - Respiratory Rate - - Oxygen Saturation - - Inhaled Oxygen Concentration - - Weight 59 kg (130 lb) 08/09/2020 1:44 PM SAFETY GLASS INSTALLER Height - - Body Mass Index 23.78 07/20/2020 3:15 PM SAFETY GLASS INSTALLER documented in this encounter Progress Notes Mejia Stack, PAC - 08/09/2020 4:15 PM CST Cc: Chief Complaint Patient presents with Follow-up ORIF left ankle DOS 07/26/2020 Follow up ORIF left ankle DOS 07/26/2020 Janine Colin is a 55 year old female. Here for follow-up status post ankle ORIF on 07/26/2020 Her pain control is much better now Allergies Janine is allergic to quetiapine and seroquel [quetiapine fumarate]. Medications Outpatient Medications Prior to Visit Medication Sig Dispense Refill aspirin E.C. 325 mg EC tablet Take 1 tablet by mouth 2 (two) times daily with meals for 28 days.56 tablet 0 ibuprofen 800 mg tablet Take 800 mg by mouth every 6 (six) hours as needed. acetaminophen-codeine (TYLENOL-CODEINE #3) 300-30 mg tablet Take [...] Take 40 mg by mouth at bedtime. digvwreftb-qdcdrxlgadtet-wgqv 50-325-40 mg tablet Take 1 tablet by mouth 2 (two) times daily. FLUoxetine 40 mg capsule Take 40 mg by mouth 2 (two) times daily. lurasidone (LATUDA) 40 mg tablet Take 40 mg by mouth daily. lurasidone (LATUDA) 60 mg Tab Take 60 mg by mouth daily. methocarbamol 500 mg tablet Take 1,000 mg by mouth 2 (two) times daily. sumatriptan 100 mg tablet Take 100 mg by mouth as needed for Migraine. topiramate 100 mg tablet Take 100 mg by mouth 2 (two) times daily. No facility-administered medications prior to visit. Histories Past Medical History: Diagnosis Date Ankylosing spondylitis Anxiety 2013 Bipolar 1 disorder 2013 Depression 1980 Fibromyalgia 1999 Past Surgical History: Procedure Laterality Date ANKLE ORIF Left 07/26/2020 Surgeon: Calvin Tucker MD; Location: [facility] [place] SECTION 1992 HYSTEROSCOPY,UTERUS,UNL PROC 1994 REPAIR ROTATOR [...] Use Smoking status: Current Every Day Smoker Packs/day: 1.00 Types: Cigarettes Start date: 1989 Smokeless tobacco: Never Used Substance and Sexual Activity Alcohol use: Never Frequency: Never Binge frequency: Never Drug use: Not Currently Sexual activity: Not on file Lifestyle Physical activity Days per week: Not on file Minutes per session: Not on file Stress: Not on file Relationships Social connections Talks on phone: Not on file Gets together: Not on file Attends worship service: Not on file Active member of [...] Gastrointestinal: Negative. Genitourinary: Negative. Musculoskeletal: Positive for joint swelling. Skin: Negative. Neurological: Negative. Psychiatric/Behavioral: Negative. Endocrine: Endocrine negative Vital Signs BP 97/66 | Pulse 66 | Wt 59 kg (130 lb) | BMI 23.78 kg/m Physical Exam Musculoskeletal: Comments: Wound is well approximated there is no erythema edema or ecchymosis there is no drainage Assessment/Plan 1. Closed bimalleolar fracture of left ankle with routine healing, subsequent encounter 2. Status post open reduction with internal fixation (ORIF) of fracture of ankle He was placed in a cast boot nonweightbearing we will follow-up in just under one month. documented in this encounter Plan of Treatment Date Type Specialty Care Team Description 09/01/2020 Office Visit Orthopedic Surgery Mejia Stack PAC [address] [address] [phone] Health Maintenance Due Date Last Done [...] of this encounter Implants Implanted Type Area Burner Technician Device Shelf Model / Identifier Expiration Date Ser ial / Lot Plate, Synthes Lcp One-Third Tubular W/Collar 6h/69mm #241.3 61 - [id number] PLATE Left: Synthes 241.361 / Implanted: Qty: 1 on 07/26/2020 by Calvin Busby MD at [facility] Ankle 2 41.361 / 241.361 Screw, Synthes 3.5mm Cortex Slf-T 12mm #204.812 - S204.812 SCREW Left: Synthes 204.812 / Implanted: Qty: 1 on 07/26/2020 by Calvin Busby MD at [facility] Ankle 2 04.812 / 204.812 Screw, Synthes 3.5mm Cortex Slf-T 14mm #204.814 - S204.814 SCREW Left: Synthes 204.814 / Implanted: Qty: 2 on 07/26/2020 by Calvin Busby MD at [facility] Ankle 2 04.814 / 204.814 Screw, Synthes 3.5mm Cortex Slf-T 16mm #204.816 - S204.816 SCREW Left: Synthes 204.816 / Implanted: Qty: 1 on 07/26/2020 by Calvin Busby MD at [facility] Ankle 2 04.816 / 204.816 Screw, Synthes 3.5mm Cortex Slf-T 20mm #204.820 - S204.820 SCREW Left: Synthes 204.820 / Implanted: Qty: 1 on 07/26/2020 by Calvin Busby MD at [facility] Ankle 2 04.820 / 204.820 Screw, Synthes 4.0mm Cancellous Full Thrd/14mm #206.014 - S206.0 14 SCREW Left: Synthes 206.014 / Implanted: Qty: 1 on 07/26/2020 by Calvin Busby MD at [facility] Ankle 2 06.014 / 206.014 Screw, Synthes 4.0mm Cancellous Full Thrd/18mm #206.018 - S206.0 18 SCREW Left: Synthes 206.018 / Implanted: Qty: 1 on 07/26/2020 by Calvin Busby MD at [facility] Ankle 2 06.018 / 206.018 Screw 4.0mm Edie Long Thrd 40mm #207.740 - S0 Synt hes 207.740 / Implanted: Qty: 1 on 07/26/2020 by Calvin Busby MD at [facility] 0 / 0 documented as of this encounter Results Not on filedocumented in this encounter Visit Diagnoses Diagnosis Closed bimalleolar fracture of left ankl e with routine healing, subsequent encounter - Primary Status post open reduction with internal fixation (ORIF) of fracture of ankle documented in this encounter"
--- OUTSIDE RECORDS SUMMARY | 2020-09-27 13:28 | XMS REPORT | Summary of Care ---
:1965 Author Organization [facility] Address [address] [place] [address] Care Team Providers Name Role Phone Sandoval Geoffrey Primary Care Provider Reason for Referral Radiology Services (Routine) Status Reason Specialty Diagnoses / Referred By Referred To Procedures Contact Contact New Request Diagnostic Diagnoses Status post open reduction with internal fixation (ORIF) of fracture of ankle Mejia Stack, Radiology Procedures XR ANKLE <3 VW LEFT PAC [address] [place] [address] Reason for Visit Reason Comments Follow-up fracture of left ankle Encounter Details Date Type Department Care Team Description 09/01/2020 Office Visit [facility] Orthopaedic Mejia Stack S tatus post open reduction with internal fixation (ORIF) of fracture of ankle (Primary Dx); Surgery- [facility] Closed bimalleolar fracture of left ankl e with routine healing, subsequent encounter [address] [place] [address] [place] [address] [place], [place] [phone] [address] Allergies Active Allergy Reactions Severity Noted Date Comments Quetiapine Unknown - See comments 10/05/2016 Goes into liver failure Quetiapine Fumarate Other - See comments 01/26/2018 Liver failure documented as of this encounter (statuses as of 09/01/2020) Medications Medication Sig Dispensed Refills Start Date [...] mouth every 6 (six) hours as needed. DULoxetine (CYMBALTA) Take 20 mg by 0 Active 20 mg capsule mouth daily. Lamotrigine (LAMICTAL Take by mouth. 0 Active ODT) 50 mg tablet tamsulosin 0.4 mg 24 Take by mouth 0 Active hr capsule daily. meloxicam 15 mg Take 1 tablet by 30 tablet 0 09/01/20202020 Active tabletIndications: mouth daily for Status post open 30 days. reduction with internal fixation (ORIF) of fracture of ankle, Closed bimalleolar fracture of left ankle with routine healing, subsequent encounter documented as of this encounter (statuses as of 09/01/2020) Active Problems Problem Noted Date Closed bimalleolar fracture of left ankle, initial enc ounter 07/14/2020 Overview: Added automatically from request for nora spaulding [id number] Venous insufficiency of both lower extremities 019 Fibromyalgia 07/01/2019 documented as of this encounter (statuses as of 09/01/2020) Social History Tobacco Use Types Packs/Day Years [...] been in contact with No / Unsure 09/01/2020 1:00 PM SPLIT LEATHER MOSSER someone who was confirmed or suspected to have Coronavirus / COVID-19? documented as of this encounter Last Filed Vital Signs Vital Sign Reading Time Taken Comments Blood Pressure 102/69 09/01/2020 1:13 PM SPLIT LEATHER MOSSER Pulse 83 09/01/2020 1:13 PM SPLIT LEATHER MOSSER Temperature - - Respiratory Rate - - Oxygen Saturation - - Inhaled Oxygen Concentration - - Weight 59 kg (130 lb) 09/01/2020 1:13 PM SPLIT LEATHER MOSSER Height - - Body Mass Index 23.78 07/20/2020 3:15 PM SPLIT LEATHER MOSSER documented in this encounter Progress Notes Mejia Stack, PAC - 09/01/2020 1:00 PM CST Cc: Chief Complaint Patient presents with Follow-up fracture of left ankle Janine Colin is a 55 year old female. Here for follow-up status post ankle ORIF on 07/26/2020 weeks and 2 days from date of surgery Her pain control is much better now Date of injury July 08 7 weeks and 6 days ago. Allergies Janine is allergic to quetiapine and seroquel [quetiapine fumarate]. Medications Outpatient Medications Prior to Visit Medication Sig Dispense Refill DULoxetine (CYMBALTA) 20 mg capsule Take 20 mg by mouth daily. Lamotrigine (LAMICTAL ODT) 50 mg tablet Take by mouth. tamsulosin 0.4 mg 24 hr capsule Take by mouth daily. ibuprofen 800 mg tablet Take 800 mg by mouth every 6 (six) hours as needed. atorvastatin 40 mg tablet Take 40 mg by mouth at bedtime. FLUoxetine 40 mg capsule Take 40 mg by mouth 2 (two) times daily. lurasidone (LATUDA) 40 mg tablet Take 40 mg by mouth daily. lurasidone (LATUDA) 60 mg Tab Take 60 mg by mouth daily. topiramate 100 mg tablet Take 100 mg by mouth 2 (two) times daily. acetaminophen-codeine (TYLENOL-CODEINE #3) 300-30 mg tablet Take [...] (three) times daily as needed for Anxiety. jzqkuyauhi-duesqninhblqc-oelr 50-325-40 mg tablet Take 1 tablet by mouth 2 (two) times daily. methocarbamol 500 mg tablet Take 1,000 mg by mouth 2 (two) times daily. sumatriptan 100 mg tablet Take 100 mg by mouth as needed for Migraine. No facility-administered medications prior to visit. Histories Past Medical History: Diagnosis Date Ankylosing spondylitis Anxiety 2013 Bipolar 1 disorder 2013 Depression 1980 Fibromyalgia 1999 Past Surgical History: Procedure Laterality Date ANKLE ORIF Left 07/26/2020 Surgeon: Calvin Tucker MD; Location[place] [facility] [place] 1992 HYSTEROSCOPY,UTERUS,UNL PROC 1994 REPAIR ROTATOR [...] file Gets together: Not on file Attends quaker service: Not on file Active member of [...] history on file. Review of Systems Constitutional: Positive for activity change and appetite change. HENT: Negative. Eyes: Negative. Respiratory: Negative. Breasts: Negative. Cardiovascular: Negative. Gastrointestinal: Negative. Genitourinary: Negative. Musculoskeletal: Positive for gait problem, joint swelling and myalgias. Skin: Negative. Neurological: Positive for weakness. Psychiatric/Behavioral: Positive for self-injury and suicidal ideas. The patient is nervous/anxious. Endocrine: Endocrine negative Vital Signs There were no vitals taken for this visit. Physical Exam Musculoskeletal: Comments: Her incisions are nicely healed she does still have tenderness in her medial and lateral ankle she arrived today without her boot on but she is not applying weight Is having some discomfort in her calcaneofibular ligament. 1. Status post open reduction with internal fixation (ORIF) of fracture of ankle XR ANKLE <3 VW LEFT 2. Closed bimalleolar fracture of left ankle with routine healing, subsequent encounter He has compression stockings she can use for the slight swelling that she has At this point she can begin to progress her weightbearing in the cast boot if it is pain-free she can gently applying more and more weight using crutches or a walker until she can apply all of her weight and walk in the boot What she can walk in the boot pain-free she should do this for a week and then she can begin to progress her weightbearing in a regular shoe gradually applying more and more weight until she can apply all of her weight. documented in this encounter Plan of Treatment [...] of this encounter Implants Implanted Type Area Intelligence Intern Device Shelf Model / Identifier Expiration Date Ser ial / Lot Plate, Synthes Lcp One-Third Tubular W/Collar 6h/69mm #241.3 61 - [id number] PLATE Left: Synthes 241.361 / Implanted: Qty: 1 on 07/26/2020 by Calvin Busby MD at [facility] Ankle 2 41.361 / 241.361 Screw, Synthes 3.5mm Cortex Slf-T 12mm #204.812 - S204.812 SCREW Left: Synthes 204.812 / Implanted: Qty: 1 on 07/26/2020 by Calvin Busby MD at [facility] Ankle 2 04.812 / 204.812 Screw, Synthes 3.5mm Cortex Slf-T 14mm #204.814 - S204.814 SCREW Left: Synthes 204.814 / Implanted: Qty: 2 on 07/26/2020 by Calvin Busby MD at [facility] Ankle 2 04.814 / 204.814 Screw, Synthes 3.5mm Cortex Slf-T 16mm #204.816 - S204.816 SCREW Left: Synthes 204.816 / Implanted: Qty: 1 on 07/26/2020 by Calvin Busby MD at [facility] Ankle 2 04.816 / 204.816 Screw, Synthes 3.5mm Cortex Slf-T 20mm #204.820 - S204.820 SCREW Left: Synthes 204.820 / Implanted: Qty: 1 on 07/26/2020 by Calvin Busby MD at [facility] Ankle 2 04.820 / 204.820 Screw, Synthes 4.0mm Cancellous Full Thrd/14mm #206.014 - S206.0 14 SCREW Left: Synthes 206.014 / Implanted: Qty: 1 on 07/26/2020 by Calvin Busby MD at [facility] Ankle 2 06.014 / 206.014 Screw, Synthes 4.0mm Cancellous Full Thrd/18mm #206.018 - S206.0 18 SCREW Left: Synthes 206.018 / Implanted: Qty: 1 on 07/26/2020 by Calvin Busby MD at [facility] Ankle 2 06.018 / 206.018 Screw 4.0mm Edie Long Thrd 40mm #207.740 - S0 Synt hes 207.740 / Implanted: Qty: 1 on 07/26/2020 by Calvin Busby MD at [facility] 0 / 0 documented as of this encounter Results XR ANKLE <3 VW LEFT (09/01/2020 1:19 PM SPLIT LEATHER MOSSER) Specimen Narrative Performed At This result has an attachment that is no t available. Performing Organization Address City/State/Zipcode Phone Number PACS documented in this encounter Visit Diagnoses Diagnosis Status post open reduction with internal fixation (ORIF) of fracture of ankle - Primary Closed bimalleolar fracture of left ankl e with routine healing, subsequent encounter documented in this encounter Insurance Payer Benefit Plan / Subscriber ID Effective Dates Phone Addre ss Type Group [employer] WE[employer] [id number] 2020-Present Med icare Adv ACCESS/LIBERTY HMO documented as of this encounter
--- OUTSIDE RECORDS SUMMARY | 2020-09-27 13:28 | XMS REPORT | Summary of Care ---
:1965 Author Organization [facility] Address [address] [place] [address] Care Team Providers Name Role Phone Sandoval Geoffrey Primary Care Provider Reason for Referral Radiology Services (Routine) Status Reason Specialty Diagnoses / Referred By Referred To Procedures Contact Contact New Request Diagnostic Diagnoses Status post open reduction with internal fixation (ORIF) of fracture of ankle Mejia Stack, Radiology Procedures XR ANKLE <3 VW LEFT PAC [address] [place] [address] Reason for Visit Reason Comments Follow-up fracture of left ankle Encounter Details Date Type Department Care Team Description 09/01/2020 Office Visit [facility] Orthopaedic Mejia Stack S tatus post open reduction with internal fixation (ORIF) of fracture of ankle (Primary Dx); Surgery- [facility] Closed bimalleolar fracture of left ankl e with routine healing, subsequent encounter [address] [place] [address] [place] [address] [place] [phone] [address] Allergies Active Allergy Reactions Severity Noted [...] Added automatically from request for nora spaulding [id number] Venous insufficiency of both lower extremities 019 [...] with No / Unsure 09/01/2020 1:00 PM ASSOCIATE PROFESSOR OF ART HISTORY someone who was confirmed or suspected to have Coronavirus / COVID-19? documented as of this encounter Last Filed Vital Signs Vital Sign Reading Time Taken Comments Blood Pressure 102/69 09/01/2020 1:13 PM ASSOCIATE PROFESSOR OF ART HISTORY Pulse 83 09/01/2020 1:13 PM ASSOCIATE PROFESSOR OF ART HISTORY Temperature - - Respiratory Rate - - Oxygen Saturation - - Inhaled Oxygen Concentration - - Weight 59 kg (130 lb) 09/01/2020 1:13 PM ASSOCIATE PROFESSOR OF ART HISTORY Height - - Body Mass Index 23.78 07/20/2020 3:15 PM ASSOCIATE PROFESSOR OF ART HISTORY documented in this encounter Progress Notes Mejia [...] (three) times daily as needed for Anxiety. ttmrmvtvfs-mfsoowhkyycbu-gdxt 50-325-40 mg tablet Take 1 tablet by [...] Left 07/26/2020 Surgeon: Calvin Tucker MD; [place] [facility] [place] 1992 HYSTEROSCOPY,UTERUS,UNL PROC 1994 REPAIR ROTATOR [...] file Gets together: Not on file Attends oriental orthodox service: Not on file Active member of [...] of this encounter Implants Implanted Type Area Store Group Manager Device Shelf Model / Identifier Expiration Date Ser ial / Lot Plate, Synthes Lcp One-Third Tubular W/Collar 6h/69mm #241.3 61 - [id number] PLATE Left: Synthes 241.361 / Implanted: Qty: 1 on 07/26/2020 by Calvin Busby MD at [facility] Ankle 2 41.361 / 241.361 Screw, Synthes 3.5mm Cortex Slf-T 12mm #204.812 - S204.812 SCREW Left: Synthes 204.812 / Implanted: Qty: 1 on 07/26/2020 by Calvin Busby MD at [facility] Ankle 2 04.812 / 204.812 Screw, Synthes 3.5mm Cortex Slf-T 14mm #204.814 - S204.814 SCREW Left: Synthes 204.814 / Implanted: Qty: 2 on 07/26/2020 by Calvin Busby MD at [facility] Ankle 2 04.814 / 204.814 Screw, Synthes 3.5mm Cortex Slf-T 16mm #204.816 - S204.816 SCREW Left: Synthes 204.816 / Implanted: Qty: 1 on 07/26/2020 by Calvin Busby MD at [facility] Ankle 2 04.816 / 204.816 Screw, Synthes 3.5mm Cortex Slf-T 20mm #204.820 - S204.820 SCREW Left: Synthes 204.820 / Implanted: Qty: 1 on 07/26/2020 by Calvin Busby MD at [facility] Ankle 2 04.820 / 204.820 Screw, Synthes 4.0mm Cancellous Full Thrd/14mm #206.014 - S206.0 14 SCREW Left: Synthes 206.014 / Implanted: Qty: 1 on 07/26/2020 by Calvin Busby MD at [facility] Ankle 2 06.014 / 206.014 Screw, Synthes 4.0mm Cancellous Full Thrd/18mm #206.018 - S206.0 18 SCREW Left: Synthes 206.018 / Implanted: Qty: 1 on 07/26/2020 by Calvin Busby MD at [facility] Ankle 2 06.018 / 206.018 Screw 4.0mm Edie Long Thrd 40mm #207.740 - S0 Synt hes 207.740 / Implanted: Qty: 1 on 07/26/2020 by Calvin Busby MD at [facility] 0 / 0 documented as of this encounter Results XR ANKLE <3 VW LEFT (09/01/2020 1:19 PM ASSOCIATE PROFESSOR OF ART HISTORY) Specimen Narrative Performed At This result has [...] Phone Addre ss Type Group [employer] WE[employer] [id number] 2020-Present Med icare Adv ACCESS/LIBERTY HMO documented as of this encounter
--- OUTSIDE RECORDS SUMMARY | 2020-09-27 13:28 | XMS REPORT | Summary of Care ---
:1965 Author Organization [facility] - [facility] Address [address] [place] [address] Care Team Providers Name Role Phone Jaime Geoffrey Primary Care Provider Reason for Visit Reason Comments Follow-up ORIF left ankle DOS 07/26/20 20 Encounter Details Date Type Department Care Team Description 08/09/2020 Office Visit [facility] Orthopaedic Calvin Tucker MD [address] [place] [address] Closed bimalleolar fracture of left ankl e with routine healing, subsequent encounter (Primary Dx); Surgery- [facility], LORENE [address] [place] [address] Status post open reduction with internal fixation (ORIF) of fracture of ankle [address] [place] [address] Allergies Active Allergy Reactions Severity Noted [...] Added automatically from request for nora chelly [id number] Venous insufficiency of both lower extremities 019 [...] with No / Unsure 07/20/2020 3:26 PM TALENT COORDINATOR someone who was confirmed or suspected to have Coronavirus / COVID-19? documented as of this encounter Last Filed Vital Signs Vital Sign Reading Time Taken Comments Blood Pressure 97/66 08/09/2020 1:44 PM TALENT COORDINATOR Pulse 66 08/09/2020 1:44 PM TALENT COORDINATOR Temperature - - Respiratory Rate - - Oxygen Saturation - - Inhaled Oxygen Concentration - - Weight 59 kg (130 lb) 08/09/2020 1:44 PM TALENT COORDINATOR Height - - Body Mass Index 23.78 07/20/2020 3:15 PM TALENT COORDINATOR documented in this encounter Progress Notes Mejia [...] Take 40 mg by mouth at bedtime. cmzkqmttll-lodzsuhtwaacs-ukja 50-325-40 mg tablet Take 1 tablet by [...] Left 07/26/2020 Surgeon: Calvin Tucker MD; Location: [facility] [place] SECTION 1992 HYSTEROSCOPY,UTERUS,UNL PROC 1994 REPAIR ROTATOR [...] file Gets together: Not on file Attends sikh service: Not on file Active member of [...] Office Visit Orthopedic Surgery Mejia Stack PAC [address] [phone] Health Maintenance Due Date Last Done [...] of this encounter Implants Implanted Type Area Electric Hoist Operator Device Shelf Model / Identifier Expiration Date Ser ial / Lot Plate, Synthes Lcp One-Third Tubular W/Collar 6h/69mm #241.3 61 - [id number] PLATE Left: Synthes 241.361 / Implanted: Qty: 1 on 07/26/2020 by Calvin Busby MD at [facility] Ankle 2 41.361 / 241.361 Screw, Synthes 3.5mm Cortex Slf-T 12mm #204.812 - S204.812 SCREW Left: Synthes 204.812 / Implanted: Qty: 1 on 07/26/2020 by Calvin Busby MD at [facility] Ankle 2 04.812 / 204.812 Screw, Synthes 3.5mm Cortex Slf-T 14mm #204.814 - S204.814 SCREW Left: Synthes 204.814 / Implanted: Qty: 2 on 07/26/2020 by Calvin Busby MD at [facility] Ankle 2 04.814 / 204.814 Screw, Synthes 3.5mm Cortex Slf-T 16mm #204.816 - S204.816 SCREW Left: Synthes 204.816 / Implanted: Qty: 1 on 07/26/2020 by Calvin Busby MD at [facility] Ankle 2 04.816 / 204.816 Screw, Synthes 3.5mm Cortex Slf-T 20mm #204.820 - S204.820 SCREW Left: Synthes 204.820 / Implanted: Qty: 1 on 07/26/2020 by Calvin Busby MD at [facility] Ankle 2 04.820 / 204.820 Screw, Synthes 4.0mm Cancellous Full Thrd/14mm #206.014 - S206.0 14 SCREW Left: Synthes 206.014 / Implanted: Qty: 1 on 07/26/2020 by Calvin Busby MD at [facility] Ankle 2 06.014 / 206.014 Screw, Synthes 4.0mm Cancellous Full Thrd/18mm #206.018 - S206.0 18 SCREW Left: Synthes 206.018 / Implanted: Qty: 1 on 07/26/2020 by Calvin Busby MD at [facility] Ankle 2 06.018 / 206.018 Screw 4.0mm Edie Long Thrd 40mm #207.740 - S0 Synt hes 207.740 / Implanted: Qty: 1 on 07/26/2020 by Calvin Busby MD at [facility] 0 / 0 documented as of this encounter Results Not on filedocumented in this encounter Visit Diagnoses Diagnosis Closed bimalleolar fracture of left ankl e with routine healing, subsequent encounter - Primary Status post open reduction with internal fixation (ORIF) of fracture of ankle documented in this encounter"
--- OUTSIDE RECORDS SUMMARY | 2020-09-27 13:29 | XMS REPORT | Summary of Care ---
:1965 Author Organization [facility] Address [address] [place] [id number] Care Team Providers Name Role Phone Geoffrey Sandoval Primary Care Provider Reason for Visit Reason Comments Refill Request Encounter Details Date Type Department Care Team Description 09/24/2020 Refill [facility] Orthopaedic Boyd Stack, PAC Refill Request Surgery- [facility] [address] [facility], [place] [address] [place] [address] [phone] Allergies Active Allergy Reactions Severity Noted Date Comments Quetiapine Unknown - See comments 10/05/2016 Goes into liver failure Quetiapine Fumarate Other - See comments 01/26/2018 Liver failure documented as of this encounter (statuses as of 09/24/2020) Medications Medication Sig Dispensed Refills Start Date End Date Status methocarbamol 500 mg Take 1,000 mg 0 Active tablet by mouth 2 (two) times daily. butalbital-acetamino Take 1 tablet 0 Active phen-caff 50-325-40 by mouth 2 mg tablet (two) times daily. ALPRAZolam 2 mg Take 2 mg by 0 A ctive tablet mouth 3 (three) times daily as needed for Anxiety. lurasidone (LATUDA) Take 60 mg by 0 Active 60 mg Tab mouth daily. lurasidone (LATUDA) Take 40 mg by 0 Active 40 mg tablet mouth daily. topiramate 100 mg Take 100 mg 0 Active tablet by mouth 2 (two) times daily. FLUoxetine 40 mg Take 40 mg by 0 Active capsule mouth 2 (two) times daily. atorvastatin 40 mg Take 40 mg by 0 Active tablet mouth at bedtime. sumatriptan 100 mg Take 100 mg 0 Active tablet by mouth as needed for Migraine. naproxen (NAPROSYN) Take 1 tablet 30 tablet 0 06/10/2018 Active 500 mg tablet by mouth 2 (two) times daily with meals. furosemide 20 mg TAKE ONE 0 05/04/2020 Ac tive tablet TABLET BY MOUTH TWICE A DAY omega-3 fatty acids Take 1 0 Active capsule capsule by mouth. acetaminophen-codein Take 1 tablet 40 tablet 0 07/13/2020 Active e (TYLENOL-CODEINE by mouth #3) 300-30 mg every 4 tabletIndications: (four) hours acute pain as needed for Pain (scale 4-6) or Pain (scale 7-10). Indications: acute pain ibuprofen 800 mg Take 800 mg 0 A ctive tablet by mouth every 6 (six) hours as needed. DULoxetine Take 20 mg by 0 Activ e (CYMBALTA) 20 mg mouth daily. capsule Lamotrigine Take by 0 Active (LAMICTAL ODT) 50 mg mouth. tablet tamsulosin 0.4 mg 24 Take by 0 Active hr capsule mouth daily. MELOXICAM 15 mg TAKE 1 TABLET 30 tablet 0 09/24/2020 Active tabletIndications: BY MOUTH Status post open EVERY DAY reduction with internal fixation (ORIF) of fracture of ankle, Closed bimalleolar fracture of left ankle with routine healing, subsequent encounter meloxicam 15 mg Take 1 tablet 30 tablet 0 09/01/2020 Discontinued tabletIndications: by mouth Status post open daily for 30 reduction with days. internal fixation (ORIF) of fracture of ankle, Closed bimalleolar fracture of left ankle with routine healing, subsequent encounter documented as of this encounter (statuses as of 09/24/2020) Active Problems Problem Noted Date Closed bimalleolar fracture of left ankle, initial enc ounter 07/14/2020 Overview: Added automatically from request for nora spaulding [id number] Venous insufficiency of both lower extremities 019 Fibromyalgia 07/01/2019 documented as of this encounter (statuses as of 09/24/2020) Social History Tobacco Use Types Packs/Day Years Used Date Current Every Day Smoker Cigarettes 1 Sta rted: 1990 Smokeless Tobacco: Never Used Alcohol Use Drinks/Week [...] with No / Unsure 09/01/2020 1:00 PM CUT 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 documented as of this encounter Last Filed Vital Signs Not on filedocumented in this encounter Plan of Treatment Health Maintenance Due Date Last Done Comments HEPATITIS C (HCV) SCREEN 1965 PNEUMOCOCCAL 0-64 YEARS COMBINED 1969 SERIES (1 of 1 - PPSV23) SARS-CoV-2 (COVID-19) Vaccine (1 of 1979 2) DTaP,Tdap,and Td Vaccines (1 - Tdap) 1982 [...] of this encounter Implants Implanted Type Area Assurance Manager Device Shelf Model / Identifier Expiration Date Ser ial / Lot Plate, Synthes Lcp One-Third Tubular W/Collar 6h/69mm #241.3 61 - [id number] PLATE Left: [employer] 241.361 / Implanted: Qty: 1 on 07/26/2020 by Calvin Busby MD at [facility] Ankle 2 41.361 / 241.361 Screw, Synthes 3.5mm Cortex Slf-T 12mm #204.812 - [id number] SCREW Left: Synthes 204.812 / Implanted: Qty: 1 on 07/26/2020 by Calvin Busby MD at [facility] Ankle 2 04.812 / 204.812 Screw, Synthes 3.5mm Cortex Slf-T 14mm #204.814 - [id number] SCREW Left: [employer]ynthes 204.814 / Implanted: Qty: 2 on 07/26/2020 by Calvin Busby MD at [facility] Ankle 2 04.814 / 204.814 Screw, Synthes 3.5mm Cortex Slf-T 16mm #204.816 - [id number] SCREW Left: Synthes 204.816 / Implanted: Qty: 1 on 07/26/2020 by Calvin Busby MD at [facility] Ankle 2 04.816 / 204.816 Screw, Synthes 3.5mm Cortex Slf-T 20mm #204.820 - [id number] SCREW Left: Synthes 204.820 / Implanted: Qty: 1 on 07/26/2020 by Calvin Busby MD at [facility] Ankle 2 04.820 / 204.820 Screw, Synthes 4.0mm Cancellous Full Thrd/14mm #206.014 - S206.0 14 SCREW Left: [employer]ynthes 206.014 / Implanted: Qty: 1 on 07/26/2020 by Calvin Busby MD at [facility] Ankle 2 06.014 / 206.014 Screw, Synthes 4.0mm Cancellous Full Thrd/18mm #206.018 - S206.0 18 SCREW Left: [employer]ynthes 206.018 / Implanted: Qty: 1 on 07/26/2020 by Calvin Busby MD at [facility] Ankle 2 06.018 / 206.018 Screw 4.0mm Edie Long Thrd 40mm #207.740 - S0 Synt hes 207.740 / Implanted: Qty: 1 on 07/26/2020 by Calvin Busby MD at [facility] 0 / 0 documented as of this encounter Results Not on filedocumented in this encounter Visit Diagnoses Diagnosis Status post open reduction with internal fixation (ORIF) of fracture of ankle Closed bimalleolar fracture of left ankl e with routine healing, subsequent encounter documented in this encounter Insurance Payer Benefit Plan / Subscriber ID Effective Dates Phone Addre ss Type Group [employer] [id number] 2018-Pres Medicare Adv spring ent HMO [facility] [id number] 2020-[facility] Adv ACCESS/LIBERTY t HMO documented as of this encounter
--- OUTSIDE RECORDS SUMMARY | 2020-09-27 13:29 | XMS REPORT | Summary of Care ---
:1965 Author Organization [facility] Address [address] [place] [address] Care Team Providers Name Role Phone Sandoval Geoffrey Primary Care Provider Reason for Visit Radiology Services (Routine) Status Reason Specialty Diagnoses / Referred By Referred To Procedures Contact Contact New Request Diagnostic Diagnoses Status post open reduction with internal fixation (ORIF) of fracture of ankle Mejia Stack, Radiology Procedures XR ANKLE <3 VW LEFT PAC [address] [place] [address] Encounter Details Date Type Department Care Team Description 09/01/2020 Hospital Encounter [facility] Mejia Stack , [facility] Orthopedics - PAC Radiology [address] [place] [phone] Allergies Active Allergy Reactions Severity Noted Date Comments Quetiapine Unknown - See comments 10/05/2016 Goes into liver failure Quetiapine Fumarate Other - See comments 01/26/2018 Liver failure documented as of this encounter (statuses as of 09/02/2020) Medications Medication Sig Dispensed Refills Start Date [...] as of this encounter (statuses as of 09/02/2020) Active Problems Problem Noted Date Closed bimalleolar fracture of left ankle, initial enc ounter 07/14/2020 Overview: Added automatically from request for nora spaulding [id number] Venous insufficiency of both lower extremities 019 Fibromyalgia 07/01/2019 documented as of this encounter (statuses as of 09/02/2020) Social History Tobacco Use Types Packs/Day Years [...] with No / Unsure 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 confirmed or suspected to [...] of this encounter Implants Implanted Type Area Occupational Health Manager Device Shelf Model / Identifier Expiration Date Ser ial / Lot Plate, Synthes Lcp One-Third Tubular W/Collar 6h/69mm #241.3 61 - [id number] PLATE Left: [employer] 241.361 / Implanted: Qty: 1 on 07/26/2020 by Calvin Busby MD at [facility] Ankle 2 41.361 / 241.361 Screw, Synthes 3.5mm Cortex Slf-T 12mm #204.812 - [id number] SCREW Left: [employer]ynthes 204.812 / Implanted: Qty: 1 on 07/26/2020 by Calvin Busby MD at [facility] Ankle 2 04.812 / 204.812 Screw, Synthes 3.5mm Cortex Slf-T 14mm #204.814 - [id number] SCREW Left: [employer]ynthes 204.814 / Implanted: Qty: 2 on 07/26/2020 by Calvin Busby MD at [facility] Ankle 2 04.814 / 204.814 Screw, Synthes 3.5mm Cortex Slf-T 16mm #204.816 - [id number] SCREW Left: [employer] 204.816 / Implanted: Qty: 1 on 07/26/2020 by Calvin Busby MD at [facility] Ankle 2 04.816 / 204.816 Screw, Synthes 3.5mm Cortex Slf-T 20mm #204.820 - [id number] SCREW Left: [employer]s 204.820 / Implanted: Qty: 1 on 07/26/2020 by Calvin Busby MD at [facility] Ankle 2 04.820 / 204.820 Screw, Synthes 4.0mm Cancellous Full Thrd/14mm #206.014 - S206.0 14 SCREW Left: Synthes 206.014 / Implanted: Qty: 1 on 07/26/2020 by Calvin Busby MD at [facility] Ankle 2 06.014 / 206.014 Screw, Synthes 4.0mm Cancellous Full Thrd/18mm #206.018 - S206.0 18 SCREW Left: Synthes 206.018 / Implanted: Qty: 1 on 07/26/2020 by Calvin Busby MD at [facility] Ankle 2 06.018 / 206.018 Screw 4.0mm Deie Long Thrd 40mm #207.740 - S0 Synt hes 207.740 / Implanted: Qty: 1 on 07/26/2020 by Calvin Busby MD at [facility] 0 / 0 documented as of this encounter Procedures Procedure Name Priority Date/Time Associated Diagnosis Comme nts XR ANKLE <3 VW LEFT Routine 09/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 Performing Organization Address City/State/Zipcode Phone Number PACS documented in this encounter Visit Diagnoses Diagnosis Status post open reduction with internal fixation (ORIF) of fracture of ankle documented in this encounter Insurance Payer Benefit Plan / Subscriber ID Effective Dates Phone Addre ss Type Group [facility] [id number] 2020-Present Med icare Adv ACCESS/LIBERTY HMO documented as of this encounter
--- NOTE | 2020-09-27 17:27 | ER ---
Nurse's Notes [facility] Name: Janine Colin Age: 55 yrs Sex: Female : 1965 Arrival Date: 09/27/2020 Time: 13:17 Bed Waiting Private MD: Elías Kline Diagnosis: Presentation: 09/27 13:29 Chief complaint: Patient states: Pain on my neck radiates down to L shoulder, numbness ca1 and tingling on L arm and hand, numbness and tingling on L leg, I can't feel my L foot. Numbness on Leg started 08/31/2020. Numbness on the arm started 08/24/2029. I have also lost control with my bowels and my bladder. I called my doctor today, and he told me to come to the ER. He previously ordered an MRI but the insurance did not accept it. Coronavirus screen: Client denies travel out of the [place] in the last 14 days. At this time, the client does not indicate any symptoms associated with coronavirus-19. Ebola Screen: Patient negative for fever greater than or equal to 101.5 degrees Fahrenheit, and additional compatible Ebola Virus Disease symptoms Patient denies exposure to infectious person. Patient denies travel to an Ebola-affected area in the 21 days before illness onset. No symptoms or risks identified at this time. Initial Sepsis Screen: Does the patient meet any 2 criteria? No. Patient's initial sepsis screen is negative. Does the patient have a suspected source of infection? No. Patient's initial sepsis screen is negative. Risk Assessment: Do you want to hurt yourself or someone else? Patient reports no desire to harm self or others. Onset of symptoms was September 27, 2020. 13:29 Method Of Arrival: Wheelchair ca1 13:29 Acuity: KRYSTYNA 3 ca1 Stroke Activation: Symptom onset > 6 hours Physician: Stroke Attending; Name: ; Notified At: ; Arrived At: Physician: Chief Stroke Resident; Name: ; Notified At: ; Arrived At: Physician: Stroke Resident; Name: ; Notified At: ; Arrived At: Physician: ED Attending; Name: ; Notified At: ; Arrived At: Physician: ED Resident; Name: ; Notified At: ; Arrived At: Historical: - Allergies: 13:35 Seroquel; ca1 - PMHx: 13:35 Anxiety; Depression; Fibromyalgia; High Cholesterol; ca1 - PSHx: 13:35 L leg surgery; ; ca1 13:35 Hysterectomy; ca1 - Immunization history:: Flu vaccine is not up to date. - Social history:: Smoking status: Patient reports the use of cigarette tobacco products, smokes one pack cigarettes per day. Assessment: 15:15 Reassessment: Arpita registration states pt left at 1514. ca1 Vital Signs: 13:29 BP 98 / 75; Pulse 77; Resp 16 S; Temp 98.6(TE); Pulse Ox 97% on R/A; Weight 63.5 kg ca1 (R); Height 5 ft. 2 in. (157.48 cm) (R); Pain 8/10; 13:29 Body Mass Index 25.61 (63.50 kg, 157.48 cm) ca1 ED Course: 13:17 Patient arrived in ED. ag5 13:18 Elías Kline MD is Private Physician. ag5 13:34 Triage completed. ca1 13:35 Arm band placed on right wrist. ca1 Administered Medications: No medications were administered Outcome: 15:16 Patient left the ED. ca1 Signatures: Keren Patel RN RN ca1 Benito Terry ag5 Corrections: (The following items were deleted from the chart) 15:16 15:15 Reassessment: Arpita registration states pt left at 1514 ca1 ca1
[2020-09-27 19:38] VITALS: BP 98/75; TEMP 98.6; O2SAT 97
== END 2020-09-27 15:16 | disposition left against medical advice (07) ==
LOC: ER 13:15
DX: M54.2 Cervicalgia (principal); F17.210 Nicotine dependence, cigarettes, uncomplicated; Z88.8 Allergy status to other drugs, medicaments and biological substances; Z53.21 Procedure and treatment not carried out due to patient leaving prior to being seen by health care provider
CPT/HCPCS: 99281

== ENCOUNTER 2021-05-25 07:05 | Day surgery (SDC) | payer OTHER ==
[2021-05-25] MEDS ORDERED: Ringers Lactate 1,000 ML IV ONE (07:34)
[2021-05-25] MEDS ORDERED: LIDOCAINE 1% MPF 5 ML VIAL ONE (10:07)
[2021-05-25] MEDS ORDERED: propofoL 200 MG/20 ML VIAL IV ONE (10:07)
[2021-05-25 12:17] VITALS: TEMP 98.2
[2021-05-25 12:18] VITALS: BP 127/73; O2SAT 98
== END 2021-05-25 11:44 | disposition home or self-care (01) ==
LOC: OR 07:05
PROVIDERS: ATTEND Internal Medicine Gastroenterology
PROC: 0DB88ZX Excision of Small Intestine, Via Natural or Artificial Opening Endoscopic, Diagnostic (ICD-10-PCS; 2021-05-25)
PROC: 0DJD8ZZ Inspection of Lower Intestinal Tract, Via Natural or Artificial Opening Endoscopic (ICD-10-PCS; principal; 2021-05-25 08:45)
PROC: 0DB78ZX Excision of Stomach, Pylorus, Via Natural or Artificial Opening Endoscopic, Diagnostic (ICD-10-PCS; 2021-05-25 08:45)
DX: K29.50 Unspecified chronic gastritis without bleeding (principal); K63.5 Polyp of colon; D50.9 Iron deficiency anemia, unspecified; R19.4 Change in bowel habit; K64.8 Other hemorrhoids; K44.9 Diaphragmatic hernia without obstruction or gangrene; K25.9 Gastric ulcer, unspecified as acute or chronic, without hemorrhage or perforation; K29.80 Duodenitis without bleeding; K76.6 Portal hypertension; K31.89 Other diseases of stomach and duodenum; Z20.822 Contact with and (suspected) exposure to COVID-19; Z86.010 Personal history of colon polyps
CPT/HCPCS: 88312; 88305; 45378; 43239; U0003; J2704; J7120

== ENCOUNTER 2021-09-21 06:01 | Day surgery (SDC) | payer OTHER ==
[2021-09-21] MEDS ORDERED: Ringers Lactate 1,000 ML IV ONE (06:24)
[2021-09-21 06:47] VITALS: TEMP 97.5
[2021-09-21] MEDS ORDERED: propofoL 200 MG/20 ML VIAL IV ONE (07:30)
[2021-09-21] MEDS ORDERED: LIDOCAINE 1% MPF 5 ML VIAL ONE (07:31)
--- NOTE | 2021-09-21 08:15 | ENDO RPT ---
[address], [address] EGD PROCEDURE REPORT EXAM DATE: 09/21/2021 PATIENT NAME: Janine Colin MR#: [id number] BIRTHDATE: 1965 ATTENDING: José Miguel Dill [address] STATUS: outpatient INCIDENT RESPONSE CONSULTANT: Simin Duckworth RN and Clare Dominguez CST INDICATIONS: The patient is a 56 yr old Female here for an EGD due to right upper quadrant abdominal pain, nausea, GERD, weight loss, and iron deficiency anemia PROCEDURE PERFORMED: EGD with biopsy MEDICATIONS: Per Anesthesia. TOPICAL ANESTHETIC: none CONSENT: The patient understands the risks and benefits of the procedure and understands that these risks include, but are not limited to: sedation, allergic reaction, infection, perforation and/or bleeding. Alternative means of evaluation and treatment include, among others: physical exam, x-rays, and/or surgical intervention. The patient elects to proceed with this endoscopic procedure. DESCRIPTION OF PROCEDURE: During intra-op preparation period all mechanical medical equipment was checked for proper function. Hand hygiene and appropriate measures for infection prevention was taken. Procedure, possible complications, and alternatives including but not limited to the possibility of bleeding, perforation, tear, infection, sepsis, need for surgery, need for blood transfusion, and anesthesia related complications were explained to the patient. After the risks, benefits and alternatives of the procedure were thoroughly explained, Informed consent was verified, confirmed and timeout was successfully executed by the treatment team. The patient was placed in the left lateral position. The patient was anesthetized with topical anesthesia. Through the anesthetized oropharyngeal area, the scope was passed without any difficulty. The Pentax [id number] ([id number]) endoscope was introduced through the mouth and advanced to the third portion of the duodenum. Retroflexed views revealed no abnormalities. The gastroscope was then slowly withdrawn and removed. Mild gastritis was found in the body of the stomach. Multiple biopsies were obtained and sent to pathology. Moderate gastritis was found in the antrum. Multiple biopsies were obtained and sent to pathology. Small bowel biopsies obtained with history of iron deficiency anemia. ADVERSE EVENTS: There were no complications. IMPRESSIONS: 1. Mild gastritis in the body of the stomach, s/p biopsies 2. Moderate gastritis in the antrum, s/p biopsies 3. Small bowel biopsies obtained with history of iron deficiency anemia RECOMMENDATIONS: 1. await biopsy results 2. acid suppression therapy REPEAT EXAM: José Miguel Dill Dr eSigned: José Miguel Dill Dr 09/21/2021 8:14 AM cc: José Miguel Sandoval M.D. CPT CODES: ICD9 CODES: PATIENT NAME: ColinJanine MR#: [id number]
[2021-09-21 09:45] VITALS: BP 131/58; O2SAT 97
== END 2021-09-21 08:30 | disposition home or self-care (01) ==
LOC: PRE 06:01
PROVIDERS: ATTEND Internal Medicine Gastroenterology
PROC: 0DB88ZX Excision of Small Intestine, Via Natural or Artificial Opening Endoscopic, Diagnostic (ICD-10-PCS; 2021-09-21)
PROC: 0DB78ZX Excision of Stomach, Pylorus, Via Natural or Artificial Opening Endoscopic, Diagnostic (ICD-10-PCS; 2021-09-21)
PROC: 0DB68ZX Excision of Stomach, Via Natural or Artificial Opening Endoscopic, Diagnostic (ICD-10-PCS; principal; 2021-09-21 07:30)
DX: K29.50 Unspecified chronic gastritis without bleeding (principal); R11.0 Nausea; K21.9 Gastro-esophageal reflux disease without esophagitis; D50.9 Iron deficiency anemia, unspecified; K29.70 Gastritis, unspecified, without bleeding
CPT/HCPCS: 43239; 88312; 88305; U0002; J2704; J7120

== ENCOUNTER 2022-01-11 14:55 | Emergency (ER) | payer MEDICARE ==
--- NOTE | 2022-01-11 17:12 | ER ---
Nurse's Notes [facility] Name: Janine Colin Age: 56 yrs Sex: Female : 1965 Arrival Date: 01/11/2022 Time: 14:56 Bed Waiting Private MD: Diagnosis: ED Course: 01/11 14:56 Patient arrived in ED. as 14:58 Delvin Levi PA is PHCP. lilian 14:58 Yobani Cruz DO is Attending Physician. lilian 15:29 Yobani Cruz DO is Attending Physician. ms3 15:44 Rafy Riley PA is PHCP. cp 15:44 Yobani Cruz DO is Attending Physician. cp Administered Medications: No medications were administered Outcome: 17:12 Patient left the ED. ss Signatures: Delvin Levi PA PA jmm Martinez, Amelia as Smirch, Shelby, RN RN ss Rafy Riley PA PA cp Sims, Marcus, DO DO ms3
== END 2022-01-11 17:12 | disposition left against medical advice (07) ==
LOC: ER 14:55
DX: Z02.9 Encounter for administrative examinations, unspecified (principal)

== ENCOUNTER → 2022-03-15 | Day surgery (SDC) | payer MEDICARE ==
--- NOTE | 2022-03-15 15:06 | RAD REPORT ---
EXAM DESCRIPTION: RAD - Chest Single View - 03/15/2022 2:57 pm CLINICAL HISTORY: Picc line placement COMPARISON: Chest Single View dated 05/06/2019; Chest Single View dated 02/21/2019; Chest Pa And Lat ( 2 Views) dated 06/13/2018; CHEST SINGLE VIEW dated 04/14/2015 FINDINGS: Lines: Right subclavian approach PICC with tip overlying the SVC. Lungs: No evidence of edema or pneumonia. Pleural: No significant pleural effusions or pneumothorax. Cardiac: The heart size is within normal limits. Bones: No acute fractures. Other: ACDF in the cervical spine. IMPRESSION: No acute cardiopulmonary disease. The PICC tip overlies the SVC in satisfactory position .
== END ==
LOC: PICC 08:00
PROVIDERS: ATTEND Internal Medicine
DX: I87.2 Venous insufficiency (chronic) (peripheral) (principal); Z86.718 Personal history of other venous thrombosis and embolism
CPT/HCPCS: 36569; 71045